=== PATIENT | female | born 1950 | race Caucasian/White ===

== ENCOUNTER 2016-08-03 12:50 | Outpatient (CLI) | payer BC, OTHER ==
[2016-08-03 13:25] LABS: Hemoglobin 12.7 g/dL (12.0-16.0)
[2016-08-03 13:41] LABS: Anion Gap 17 mmol/L (10-20); BUN (Urea Nitrogen) 26 mg/dL (9.8-20.1); Calc. Creatinine Clearance 0 mL/min (70-130); Calcium 10.1 mg/dL (7.8-10.44); Carbon Dioxide 25 mmol/L (23-31); Chloride 104 mmol/L (98-107); Estimated GFR-MDRD 49; Glucose 115 mg/dL (80-115); Sodium 142 mmol/L (136-145)
== END 2016-08-03 12:51 | disposition home or self-care (01) ==
LOC: MADLAB 12:50
PROVIDERS: ATTEND Internal Medicine Nephrology
DX: N18.3 Chronic kidney disease, stage 3 (moderate) (principal); D63.1 Anemia in chronic kidney disease
CPT/HCPCS: 36415; 80048; 85014; 85018

== ENCOUNTER 2016-11-07 08:10 | Outpatient (CLI) | payer BC, OTHER ==
[2016-11-07 09:04] LABS: Hemoglobin 12.6 g/dL (12.0-16.0); Mean Corpuscular HGB CONC 31.9 g/dL (32.0-36.0); Mean Corpuscular Hemoglobin 29.5 pg (27.0-31.0); Mean Corpuscular Volume 92.7 fl (81.0-99.0); Mean Platelet Volume 7.6 fL (7.4-10.4); Platelet Count 257 thou/uL (130-400); RBC Distribution Width 13.5 % (11.5-14.5); Red Blood Cell (RBC) Count 4.29 mill/uL (4.20-5.40); White Blood Cell (WBC) Count 10.2 thou/uL (4.8-10.8)
[2016-11-07 09:15] LABS: ALT (SGPT) 16 U/L (8-55); AST (SGOT) 16 U/L (5-34); Albumin 3.7 g/dL (3.4-4.8); Alkaline Phosphatase 104 U/L (40-150); BUN (Urea Nitrogen) 23 mg/dL (9.8-20.1); Bilirubin, Direct 0.2 mg/dL (0.1-0.3); Bilirubin, Total 0.4 mg/dL (0.2-1.2); Calc. Creatinine Clearance 0 mL/min (70-130); Estimated GFR-MDRD 45; Protein, Total 7.5 g/dL (5.8-8.1)
[2016-11-09 07:32] LABS: Antinuclear AB Negative (Negative)
== END 2016-11-07 08:11 | disposition home or self-care (01) ==
LOC: MADLAB 08:10
PROVIDERS: ATTEND Physician Assistant Medical
DX: L40.0 Psoriasis vulgaris (principal)
CPT/HCPCS: 36415; 80076; 82565; 84520; 85027; 86038

== ENCOUNTER 2017-01-18 07:10 | Outpatient (CLI) | payer BC, OTHER ==
--- NOTE | 2017-01-18 09:06 | ULT ---
BILATERAL RENAL ULTRASOUND: Date: 01/18/17 HISTORY: Chronic renal disease. History of a cyst involving the left kidney. COMPARISON: 09/29/14 study. FINDINGS: Real-time imaging of the right and left kidneys performed. The right kidney measures 10.5 cm and the left kidney measures 9.8 cm in size. I do not visualize any cyst, mass, or obstruction. I cannot ap preciate the lower pole left renal cyst that was seen on the prior exam. There is cortical thinning of both kidneys. The bladder region appears unremarkable. IMPRESSION: Unremarkable renal ultrasound. The cyst seen involving the lower pole of the left kidney on the prev ious study is not visualized on the current exam. POS: [facility]
== END 2017-01-18 07:11 | disposition home or self-care (01) ==
LOC: MADULT 07:10
PROVIDERS: ATTEND Internal Medicine Nephrology
DX: N18.3 Chronic kidney disease, stage 3 (moderate) (principal); N28.1 Cyst of kidney, acquired
CPT/HCPCS: 76770

== ENCOUNTER 2017-03-12 14:05 | Outpatient (CLI) | payer BC, OTHER ==
[2017-03-12 16:40] LABS: Bilirubin Small (Negative); Blood, Urine Large (Negative); Clarity Cloudy (Clear); Glucose, Urine (Dipstick) 100 mg/dL (Negative); Leukocyte Small (Negative); Nitrite Negative (Negative); Protein, Urine (Dipstick) > or equal to 300 mg/dL (Neg-Trace); RBC/HPF 21-50 HPF (0-3); Specific Gravity, Urine 1.027 (1.002-1.036)
[2017-03-12 16:41] LABS: Bacteria/HPF 4+ HPF (None Seen)
== END 2017-03-12 14:06 | disposition home or self-care (01) ==
LOC: MADLABBHPM 14:05
PROVIDERS: ATTEND Family Medicine
DX: R30.0 Dysuria (principal)
CPT/HCPCS: 36415; 81001; 87077; 87086; 87186

== ENCOUNTER 2017-05-22 08:48 | Outpatient (CLI) | payer BC, OTHER ==
[2017-05-22 09:19] LABS: Mean Corpuscular HGB CONC 32.2 g/dL (32.0-36.0); Mean Corpuscular Hemoglobin 30.2 pg (27.0-31.0); Mean Corpuscular Volume 93.9 fl (81.0-99.0); Mean Platelet Volume 7.4 fL (7.4-10.4); Platelet Count 303 thou/uL (130-400); RBC Distribution Width 13.5 % (11.5-14.5); White Blood Cell (WBC) Count 11.7 thou/uL (4.8-10.8)
[2017-05-22 11:31] LABS: ALT (SGPT) 20 U/L (8-55); AST (SGOT) 19 U/L (5-34); Albumin 3.8 g/dL (3.4-4.8); Alkaline Phosphatase 116 U/L (40-150); BUN (Urea Nitrogen) 25 mg/dL (9.8-20.1); Bilirubin, Direct 0.2 mg/dL (0.1-0.3); Bilirubin, Total 0.5 mg/dL (0.2-1.2); Calc. Creatinine Clearance 0 mL/min (70-130); Estimated GFR-MDRD 45; Protein, Total 8.2 g/dL (6.0-8.3)
[2017-05-24 08:16] LABS: Antinuclear AB Negative (Negative)
== END 2017-05-22 08:49 | disposition home or self-care (01) ==
LOC: MADLABBHPM 08:48
PROVIDERS: ATTEND Physician Assistant Medical
DX: L40.0 Psoriasis vulgaris (principal)
CPT/HCPCS: 36415; 80076; 82565; 84520; 85027; 86038

== ENCOUNTER 2017-08-03 13:34 | Outpatient (CLI) | payer BC, OTHER ==
[2017-08-03 14:40] LABS: Bacteria/HPF Rare-Few HPF (None Seen)
[2017-08-03 22:59] LABS: Creatinine, Urine 78.52 mg/dL (47-110); Microalbumin Urine 6.7 mg/dL (0.5-50.0); Microalbumin/Creat Ratio 85.3 mg/g (Less than 30)
== END 2017-08-03 13:35 | disposition home or self-care (01) ==
LOC: MADLABBHPM 13:34 → MADLAB 13:35
PROVIDERS: ATTEND Family Medicine
DX: E11.9 Type 2 diabetes mellitus without complications (principal); N32.81 Overactive bladder
CPT/HCPCS: 36415; 81015; 82043; 87086

== ENCOUNTER 2017-09-03 10:32 | Outpatient (CLI) | payer OTHER | END 2017-09-03 10:33 | disposition home or self-care (01) | LOC: MADLABBHPM 10:32 | PROVIDERS: ATTEND Family Medicine | DX: R30.0 Dysuria (principal) | CPT/HCPCS: 36415; 87077; 87086; 87186 ==

== ENCOUNTER 2017-11-09 08:42 | Outpatient (CLI) | payer OTHER ==
[2017-11-09 09:22] LABS: Hemoglobin 11.4 g/dL (12.0-16.0); Mean Corpuscular HGB CONC 31.3 g/dL (32.0-36.0); Mean Corpuscular Hemoglobin 28.4 pg (27.0-31.0); Mean Corpuscular Volume 90.5 fl (81.0-99.0); Mean Platelet Volume 6.7 fL (7.4-10.4); Platelet Count 233 thou/uL (130-400); RBC Distribution Width 12.9 % (11.5-14.5); Red Blood Cell (RBC) Count 4.03 mill/uL (4.20-5.40); White Blood Cell (WBC) Count 8.9 thou/uL (4.8-10.8)
[2017-11-09 09:36] LABS: ALT (SGPT) 16 U/L (8-55); AST (SGOT) 14 U/L (5-34); Albumin 3.5 g/dL (3.4-4.8); Alkaline Phosphatase 106 U/L (40-150); BUN (Urea Nitrogen) 36 mg/dL (9.8-20.1); Bilirubin, Direct 0.2 mg/dL (0.1-0.3); Bilirubin, Total 0.4 mg/dL (0.2-1.2); Calc. Creatinine Clearance 0 mL/min (70-130); Estimated GFR-MDRD 42; Protein, Total 7.3 g/dL (6.0-8.3)
== END 2017-11-09 08:43 | disposition home or self-care (01) ==
LOC: MADLAB 08:42
PROVIDERS: ATTEND Physician Assistant Medical
DX: L40.0 Psoriasis vulgaris (principal)
CPT/HCPCS: 36415; 80076; 82565; 84520; 85027; 86038; 86225

== ENCOUNTER 2018-03-15 11:15 | Emergency (ER) | payer BC ==
[~2018-03-15 11:15] MED LIST: Sodium Chloride 0.9% 500 ML BAG ONE
--- NOTE | 2018-03-15 11:47 | RAD ---
PORTABLE AP CHEST X-RAY: 03/15/2018 HISTORY: Dizziness. COMPARISON: 10/03/2005 FINDINGS: The cardiac silhouette is magnified by projection but is at the upper limits of normal in size to bor derline enlarged. The pulmonary vasculature is within normal limits. The lungs are clear. There dobbs s been no interval change from the prior exam. There is suggestion of a calcified left hilar lymph n ode. IMPRESSION: 1. No acute cardiopulmonary process. 2. Upper limits of normal to borderline cardiomegaly. POS: [facility]
[2018-03-15 11:53] LABS: ALT (SGPT) 15 U/L (8-55); AST (SGOT) 17 U/L (5-34); Albumin 3.5 g/dL (3.4-4.8); Alkaline Phosphatase 86 U/L (40-150); Anion Gap 17 mmol/L (10-20); BUN (Urea Nitrogen) 63 mg/dL (9.8-20.1); Bilirubin, Total 0.5 mg/dL (0.2-1.2); CK (CPK) 49 U/L (29-168); Calc. Creatinine Clearance 0 mL/min (70-130); Calcium 8.9 mg/dL (7.8-10.44); Carbon Dioxide 17 mmol/L (23-31); Chloride 107 mmol/L (98-107); Estimated GFR-MDRD 17; Globulin 3.3 g/dL (2.4-3.5); Glucose 119 mg/dL (80-115); Potassium 5.2 mmol/L (3.5-5.1); Protein, Total 6.8 g/dL (6.0-8.3); Sodium 136 mmol/L (136-145)
[2018-03-15 11:54] LABS: Band 6 % (5-11); MDiff Complete? YES; Manual Diff?? YES; Mean Corpuscular HGB CONC 32.5 g/dL (32.0-36.0); Mean Corpuscular Volume 95.4 fL (78.0-98.0); Neutrophil 66 % (42-75); Platelet Count 261 thou/uL (130-400); RBC Distribution Width 14.1 % (11.5-14.5); Red Blood Cell (RBC) Count 3.21 mill/uL (4.20-5.40); White Blood Cell (WBC) Count 12.4 thou/uL (4.8-10.8)
[2018-03-15 11:55] LABS: Anisocytosis SLIGHT = 6-15 cells (100X) (0-5/hpf); CKMB 1.1 ng/mL (0-6.6); Lymphocytes 25 % (21-51); Monocytes 3 % (0-10); PLT Morphology Comment Appears Adequate; Troponin I 0.034 ng/mL (< 0.028)
[2018-03-15] MEDS ORDERED: Aspirin 325 MG TAB ONE (12:32)
[2018-03-15 12:35] LABS: Blood, Urine Moderate (Negative); Clarity Cloudy (Clear); Glucose, Urine (Dipstick) 100 mg/dL (Negative); Specific Gravity, Urine 1.015 (1.005-1.030)
[2018-03-15 12:36] LABS: Bilirubin Unable to Interpret (Negative); Leukocyte Unable to Interpret (Negative); Nitrite Unable to Interpret (Negative); Protein, Urine (Dipstick) Unable to Interpret mg/dL (Neg-Trace); Urobilinogen UNABLE TO INTERPRET mg/dL (0.2-1.0)
[2018-03-15 12:39] LABS: Bacteria/HPF 1+ HPF (None Seen); Squamous Epithelial 0-3 HPF (0-3)
== END 2018-03-15 13:05 | disposition short-term general hospital (02) ==
LOC: MADERS 11:15
DX: I95.9 Hypotension, unspecified (principal); N17.9 Acute kidney failure, unspecified; R79.89 Other specified abnormal findings of blood chemistry; E87.5 Hyperkalemia; E11.9 Type 2 diabetes mellitus without complications; I25.10 Atherosclerotic heart disease of native coronary artery without angina pectoris; I10 Essential (primary) hypertension; Z79.84 Long term (current) use of oral hypoglycemic drugs; Z79.891 Long term (current) use of opiate analgesic; Z79.899 Other long term (current) drug therapy
CPT/HCPCS: 36416; 71045; 80053; 81003; 81015; 82553; 84484; 85025; 87077; 87086; 87186; 93005; 96360; J7050

== ENCOUNTER 2018-04-10 08:48 | Outpatient (CLI) | payer BC, MEDICARE, OTHER ==
--- NOTE | 2018-04-10 10:46 | CT ---
CT OF ABDOMEN AND PELVIS PERFORMED WITHOUT CONTRAST ENHANCEMENT: HISTORY: Recurrent UTIs for several months. Sharp pains in bladder region x 2 weeks. FINDINGS: The lung bases are clear. The liver, spleen, and pancreas regions are unremarkable. There are large gallstones noted. Right and left adrenal glands are normal in size and appearance. Right and left kidneys are normal i n size and not obstructed. No renal calculi are seen. There is an exophytic density arising from th e lower pole of the left kidney. CT Hounsfield unit numbers of 31 are not definitively a cyst. It m easures in the 10-11 mm range. In reviewing a previous ultrasound study of 01/18/2017, this area was not seen on that examination but was reported on a 09/29/2014 examination and on that examination ther e was a much larger cyst measuring 2.5 x 2.7 cm. It may be that this is the residual of that collaps ed cyst. There is some fat stranding associated with the left renal pelvis. There is no ureteral di latation or evidence of a ureteral calculus. There is no significant periaortic or mesenteric adenop athy. Some minimal colonic diverticulosis noted. These changes are more pronounced in the sigmoid c olon. CT OF PELVIS PERFORMED WITHOUT CONTRAST ENHANCEMENT: Fat-containing paraumbilical hernia is seen. No adenopathy or mass. The appendix appears unremarkab le. IMPRESSION: 1. Gallstones. 2. An approximately 11 mm exophytic hyperdense lesion involving the lower pole of the left kidney. This does not have CT numbers that would correspond to a cyst. However, in reviewing the 2014 CT exa mination, there was a 2.7 cm cyst in this location. It is possible that what is seen now is the resi dual of the involution of this cyst. 3. There are no signs of renal calculi or obstruction. There is some mild fat stranding associated with the left renal pelvis. This could be related to previous infections. 4. Colonic diverticulosis. POS: C
== END 2018-04-10 08:49 | disposition home or self-care (01) ==
LOC: MADCT 08:48
PROVIDERS: ATTEND Urology
DX: N39.0 Urinary tract infection, site not specified (principal); K80.20 Calculus of gallbladder without cholecystitis without obstruction; N28.9 Disorder of kidney and ureter, unspecified; K57.30 Diverticulosis of large intestine without perforation or abscess without bleeding
CPT/HCPCS: 74176

== ENCOUNTER 2018-05-07 07:40 | Outpatient (CLI) | payer BC ==
[2018-05-07 08:26] LABS: Mean Corpuscular Hemoglobin 29.9 pg (27.0-31.0); Mean Corpuscular Volume 96.5 fL (78.0-98.0); Mean Platelet Volume 7.5 fL (7.4-10.4); Platelet Count 272 thou/uL (130-400); RBC Distribution Width 13.2 % (11.5-14.5); Red Blood Cell (RBC) Count 3.69 mill/uL (4.20-5.40); White Blood Cell (WBC) Count 8.6 thou/uL (4.8-10.8)
[2018-05-07 08:44] LABS: ALT (SGPT) 17 U/L (8-55); AST (SGOT) 19 U/L (5-34); Albumin 3.7 g/dL (3.4-4.8); Alkaline Phosphatase 122 U/L (40-150); BUN (Urea Nitrogen) 34 mg/dL (9.8-20.1); Bilirubin, Direct 0.2 mg/dL (0.1-0.3); Bilirubin, Total 0.4 mg/dL (0.2-1.2); Calc. Creatinine Clearance 0 mL/min (70-130); Estimated GFR-MDRD 40; Protein, Total 7.5 g/dL (6.0-8.3)
[2018-05-08 13:56] LABS: ANA Symphony (Qualitative) Negative (Negative); dsDNA IgG Antibody 0.6 IU/mL (<10 Negative)
== END 2018-05-07 07:41 | disposition home or self-care (01) ==
LOC: MADLAB 07:40
PROVIDERS: ATTEND Physician Assistant Medical
DX: L40.0 Psoriasis vulgaris (principal)
CPT/HCPCS: 36415; 80076; 82565; 84520; 85027; 86038; 86225

== ENCOUNTER 2018-11-01 10:09 | Outpatient (CLI) | payer MEDICARE, OTHER ==
[2018-11-01 13:24] LABS: #Basophils 0.1 thou/uL (0.0-0.2); #Eosinphils 0.2 thou/uL (0.0-0.7); #Lymphocytes 2.6 thou/uL (1.20-3.40); #Monocytes 0.5 thou/uL (0.11-0.59); #Neutrophils 4.2 thou/uL (1.40-6.50); %Eosinophils 2.7 % (0.0-10.0); %Lymphocytes 34.2 % (21.0-51.0); %Monocytes 6.8 % (0.0-10.0); %Neutrophils 55.3 % (42.0-75.0); Hemoglobin 9.9 g/dL (12.0-16.0); Mean Corpuscular HGB CONC 30.8 g/dL (32.0-36.0); Mean Corpuscular Hemoglobin 28.7 pg (27.0-31.0); Mean Corpuscular Volume 93.2 fL (78.0-98.0); Mean Platelet Volume 6.7 fL (7.4-10.4); Platelet Count 249 thou/uL (130-400); RBC Distribution Width 14.6 % (11.5-14.5); Red Blood Cell (RBC) Count 3.47 mill/uL (4.20-5.40); White Blood Cell (WBC) Count 7.6 thou/uL (4.8-10.8)
[2018-11-01 13:32] LABS: ALT (SGPT) 7 U/L (8-55); AST (SGOT) 14 U/L (5-34); Albumin 3.6 g/dL (3.4-4.8); Alkaline Phosphatase 123 U/L (40-150); BUN (Urea Nitrogen) 27 mg/dL (9.8-20.1); Bilirubin, Direct 0.2 mg/dL (0.1-0.3); Bilirubin, Total 0.4 mg/dL (0.2-1.2); Calc. Creatinine Clearance 0 mL/min (70-130); Estimated GFR-MDRD 37; Protein, Total 7.2 g/dL (6.0-8.3)
[2018-11-06 15:39] LABS: ANA Symphony (Qualitative) Negative (Negative); ANA Symphony (Quantitative) 0.1 Ratio (< 0.7 Negative); dsDNA IgG Antibody 1.8 IU/mL (<10 Negative)
== END 2018-11-01 10:10 | disposition home or self-care (01) ==
LOC: MADLAB 10:09
PROVIDERS: ATTEND Physician Assistant Medical
DX: L40.0 Psoriasis vulgaris (principal)
CPT/HCPCS: 36415; 80076; 82565; 84520; 85025; 86038; 86225

== ENCOUNTER 2019-02-25 03:37 | Emergency (ER) | payer MEDICARE, OTHER ==
[2019-02-25 04:50] LABS: Hemoglobin 9.3 g/dL (12.0-16.0); Mean Corpuscular HGB CONC 31.6 g/dL (32.0-36.0); Mean Corpuscular Hemoglobin 28.8 pg (27.0-31.0); Mean Corpuscular Volume 91.1 fL (78.0-98.0); Mean Platelet Volume 5.9 fL (7.4-10.4); Platelet Count 211 thou/uL (130-400); RBC Distribution Width 13.2 % (11.5-14.5); Red Blood Cell (RBC) Count 3.21 mill/uL (4.20-5.40); White Blood Cell (WBC) Count 16.2 thou/uL (4.8-10.8)
[2019-02-25 05:07] LABS: Anisocytosis SLIGHT = 6-15 cells (100X) (0-5/hpf); Band 8 % (5-11); Lymphocytes 9 % (21-51); MDiff Complete? YES; Monocytes 6 % (0-10); Neutrophil 77 % (42-75); Platelet Morphology Comment Appears Adequate
[2019-02-25 05:08] LABS: ALT (SGPT) 17 U/L (8-55); AST (SGOT) 44 U/L (5-34); Albumin 3.2 g/dL (3.4-4.8); Alkaline Phosphatase 119 U/L (40-150); Anion Gap 18 mmol/L (10-20); BUN (Urea Nitrogen) 39 mg/dL (9.8-20.1); Bilirubin, Total 0.4 mg/dL (0.2-1.2); CK (CPK) 1838 U/L (29-168); Calc. Creatinine Clearance 0 mL/min (70-130); Calcium 8.6 mg/dL (7.8-10.44); Carbon Dioxide 22 mmol/L (23-31); Chloride 100 mmol/L (98-107); Estimated GFR-MDRD 20; Globulin 3.9 g/dL (2.4-3.5); Glucose 225 mg/dL (80-115); Potassium 3.7 mmol/L (3.5-5.1); Protein, Total 7.1 g/dL (6.0-8.3); Sodium 136 mmol/L (136-145)
[2019-02-25 05:10] LABS: Bilirubin Negative (Negative); Blood, Urine Large (Negative); Clarity Cloudy (Clear); Glucose, Urine (Dipstick) Negative (Negative); Leukocyte Moderate (Negative); Nitrite Negative (Negative); Protein, Urine (Dipstick) > or equal to 300 mg/dL (Neg-Trace); Urobilinogen 0.2 mg/dL (Less than 2)
[2019-02-25 05:11] LABS: WBC/HPF Greater Than 50 HPF (0-3)
[2019-02-25 05:12] LABS: Bacteria/HPF 1+ HPF (None Seen); Squamous Epithelial 0-3 HPF (0-3)
[2019-02-25] MEDS ORDERED: Fentanyl 100 MCG/2 ML VIAL ONE (05:25)
[2019-02-25] MEDS ORDERED: Sodium Chloride 0.9% 1,000 ML ONE (05:25)
[2019-02-25 05:34] LABS: CKMB 17.7 ng/mL (0-6.6)
--- NOTE | 2019-02-25 08:36 | RAD ---
LEFT FEMUR ONE VIEW: HISTORY: Fall. Pain. FINDINGS: Displaced intertrochanteric fracture. The distal aspect of the femur is not included on this exam. IMPRESSION: Limited evaluation, as only one view has been provided. There is a displaced intertrochanteric fract ure. POS: OFF
--- NOTE | 2019-02-25 08:38 | RAD ---
LEFT HIP ONE VIEW: HISTORY: Fall. Pain. FINDINGS: A single view of the left hip demonstrates a displaced intertrochanteric fracture. IMPRESSION: Displaced intertrochanteric fracture. POS: OFF
--- NOTE | 2019-02-25 08:48 | RAD ---
CHEST ONE VIEW: HISTORY: Pain. Left hip fracture. COMPARISON: 03/15/2018 FINDINGS: Enlarged cardiac silhouette. Lungs and pleural spaces are clear. No pneumothorax on the supine proj ection. No osseous abnormalities. IMPRESSION: No acute cardiopulmonary process. POS: OFF
== END 2019-02-25 05:45 | disposition short-term general hospital (02) ==
LOC: MADERS 03:37
DX: S72.142A Displaced intertrochanteric fracture of left femur, initial encounter for closed fracture (principal); S72.112A Displaced fracture of greater trochanter of left femur, initial encounter for closed fracture; T79.6XXA Traumatic ischemia of muscle, initial encounter; N28.9 Disorder of kidney and ureter, unspecified; I25.10 Atherosclerotic heart disease of native coronary artery without angina pectoris; I10 Essential (primary) hypertension; Z79.899 Other long term (current) drug therapy; Z79.82 Long term (current) use of aspirin; W19.XXXA Unspecified fall, initial encounter
CPT/HCPCS: 51702; 71045; 80053; 81003; 81015; 82550; 82553; 84484; 85025; 93005; 94760; 96374; J3010; J7050

== ENCOUNTER 2019-03-02 20:30 | Inpatient (IN) | payer MEDICARE, OTHER ==
[2019-03-02] MEDS ORDERED: Senokot S 8.6-50 MG TAB PO PRN (23:47)
[2019-03-03] MEDS ORDERED: hydrALAZINE 10 MG TAB PO PRN (00:06)
[2019-03-03] MEDS ORDERED: Ondansetron ODT 4 MG TAB PO PRN (00:07)
[2019-03-03] MEDS ORDERED: Carvedilol 12.5 MG TAB PO SCH (00:15)
[2019-03-03] MEDS ORDERED: Dextrose 50% Abboject 50 ML SYRINGE SLOW IVP PRN (07:05)
[2019-03-03] MEDS ORDERED: HumaLOG 300 UNITS/3 ML VIAL SC PRN (07:05)
[2019-03-03] MEDS ORDERED: Dextrose 5% in Water 1,000 ML IV PRN (07:05)
[2019-03-03] MEDS: traMADol HCl 50 MG TAB PO PRN ×2 (07:28→18:00)
[2019-03-03] MEDS ORDERED: ACTOS PO SCH (09:00)
[2019-03-03] MEDS ORDERED: Phenazopyridine HCl 97.5 MG TABLET PO SCH (09:00)
[2019-03-03] MEDS: Ferrous Sulfate 325 MG TAB PO SCH ×2 (09:24→16:24)
[2019-03-03] MEDS: Gabapentin 100 MG CAP PO SCH ×3 (09:25→20:31)
[2019-03-03] MEDS: Oxybutynin ER 5 MG TAB PO SCH (09:25)
[2019-03-03] MEDS: Aspirin 81 mg Enteric Coated Tablet PO SCH ×2 (09:25→20:31)
[2019-03-03] MEDS: Multivitamin W/ Minerals 1 TAB PO SCH (09:25)
[2019-03-03] MEDS: Ascorbic Acid 500 mg Chewable Tablet PO SCH (09:25)
[2019-03-03] MEDS: Phenazopyridine HCl 97.5 MG TABLET PO PRN (09:25)
[2019-03-03] MEDS: Floranex Packet PO SCH (09:26)
[2019-03-03] MEDS: Nitrofurantoin Monohyd/M-Cryst 100 MG CAP PO SCH ×2 (09:26→20:31)
[2019-03-03] MEDS: Polyethylene Glycol 3350 17 GM Packet PO SCH (09:26)
[2019-03-03] MEDS: Carvedilol 12.5 MG TAB PO SCH ×2 (09:26→20:32)
[2019-03-03] MEDS: CRANBERRY 900 MG PO SCH (09:27)
--- NOTE | 2019-03-03 14:55 | HP ---
PRIMARY CARE PHYSICIAN: Dr. Alonzo. REASON FOR ADMISSION: Skilled rehab in [facility]. HISTORY OF THE PRESENT ILLNESS AND HOSPITAL COURSE: Ms. Parada is a very pleasant 68-year-old female with history of recent fall from home on 2018. The patient reports that she fell when she was trying to get up and out of the recliner and go to bed. The patient reports that she laid on the floor most of the night when her son found her at around 3 a.m. That was the time that the patient was sent only sent to the hospital. The patient reports significant history of recurrent UTI. She reports recent urinary symptoms of UTI, but did not go to her PCP at this time. She reports that she normally easily gets dehydrated when she gets urinary tract infection and correlates this with her recent fall. She denied any loss of consciousness, nor chest pain or shortness of breath during this incident. The patient was found to have a left intertrochanteric hip fracture that was sustained from the fall. She was then admitted to [facility] and was treated appropriately. She received hydration and placed on antibiotics for UTI. She underwent TFNA of the left femur by Dr. Gutierres on 02/26/2019. The patient had an unremarkable postoperative course. She was placed on aspirin 81 mg p.o. b.i.d. for DVT prophylaxis. Her urine culture came back with positive for presence of E coli, sensitive to nitrofurantoin. The patient was started on Macrobid prior to discharge. On 03/02/2019, the patient was deemed clinically stable to proceed with rehab at [facility], thus transferred. The patient had an unremarkable overnight stay since admission to [facility]. She reports today that she still could hardly get up and stand up. She is partially weightbearing on the left as per Orthopedic's recommendation. The patient is requesting to have a PureWick placed due to urinary frequency. She is also requesting for SCD in addition to her aspirin for DVT prophylaxis as she reports that she has been receiving this in the hospital prior to transfer. Overall, pain is adequately controlled with Tylenol and tramadol combination. No other issues reported at this time. PAST MEDICAL HISTORY: Hypertension, diabetes type 2, gallstones, frequent UTI, coronary artery disease, arthritis, psoriasis, overactive bladder, hyperlipidemia, and obesity. PAST SURGICAL HISTORY: Cardiac stents placed in 2006, hysterectomy, and hernia repair. SOCIAL HISTORY: Lives at home with her son. She is retired. She denies smoking history. Denies alcohol or illicit drug use. MEDICATIONS: 1. Aspirin 81 mg p.o. b.i.d. 2. Carvedilol 12.5 mg b.i.d. 3. Crestor 20 mg at bedtime. 4. Pioglitazone 15 mg p.o. daily. 5. Amitriptyline 50 mg at bedtime. 6. Oxybutynin 10 mg p.o. daily. 7. Azo p.r.n. 8. Estradiol vaginal cream Sunday, Sunday, and Sunday. 9. Vitamin C 500 mg p.o. daily. 10. Multivitamins 1 tablet p.o. daily. 11. Acetaminophen 1000 mg p.o. q.6 hours p.r.n. 12. Acidophilus 1 g p.o. daily. 13. Vitamin D 1000 units p.o. daily. 14. Ferrous sulfate 325 mg p.o. b.i.d. 15. Gabapentin 100 mg p.o. t.i.d. 16. Lisinopril 20 mg p.o. daily. 17. Hydrochlorothiazide 12.5 mg p.o. daily. 18. Nitrofurantoin 100 mg p.o. b.i.d. 19. Polyethylene glycol 17 g p.o. daily. 20. Rosuvastatin 20 mg p.o. at bedtime. 21. Senokot-S 2 tablets p.o. b.i.d. p.r.n. 22. Tramadol 50 mg p.o. q.6 hours p.r.n. ALLERGIES: NO KNOWN ALLERGIES. REVIEW OF SYSTEMS: GENERAL: Denies fever or chills. Reports general weakness and fatigue. HEENT: No acute visual changes or hearing changes or cold symptoms. RESPIRATORY: No shortness of breath, pain with breathing, sputum production, or chronic cough. CARDIO: Denies chest pain, dyspnea on exertion, orthopnea, palpitations, paroxysmal nocturnal dyspnea. GI: No nausea, vomiting, abdominal pain, or diarrhea. Reports constipation. No rectal bleeding. GENITOURINARY: Reports recurrent history of UTI, urinary frequency and urgency. Denies gross hematuria, incontinence, or nocturia. MUSCULOSKELETAL: Reports joint pains, arthritis of the knees, intermittent joint swelling of the knees. NEUROLOGIC: Denies focal weakness, numbness, loss of consciousness, seizure, tics, or tremors. PSYCHIATRIC: Reports insomnia. Denies depressive symptoms, anxiety, or hallucinations. SKIN: Denies rashes, nonhealing ulcers, or pruritus. PHYSICAL EXAMINATION: VITAL SIGNS: Blood pressure 149/68, temperature 96.6, pulse 68, respiration 18 , O2 sats 95% on room air. Weight 253 pounds and 8 ounces and height 5 feet and 6 inches. GENERAL: The patient is awake, alert, oriented x3, comfortable on exam, built obese, not in distress. HEENT: Normocephalic, atraumatic. PERRL. Intact EOM. Anicteric sclerae. Oral mucosa is moist. NECK: Supple. Full range of motion. No LAD. No JVD. No bruit. CHEST: Normal excursion. Clear to auscultation bilaterally. CARDIAC: RRR. Normal S1 and S2. No murmurs. ABDOMEN: Obese and soft. Normoactive bowel sounds. Nondistended, nontender. No rebound. No guarding. Negative CVA tenderness bilaterally. EXTREMITIES: Positive anterior knee joint swelling. No significant erythema. Nontender to touch. Negative Homans. Pulses 2+ bilaterally. NEUROLOGIC: Nonfocal. DTRs 2+. Gait unsteady. SKIN: Postoperative sites on the left lateral thigh is covered with clean dressing. No surrounding erythema. No edema. LABORATORY DATA: Recent lab works: Fasting blood sugar on 03/03/2019, 114. On 02/28/2019, WBC 11.9, hemoglobin 8.8, hematocrit 26.9, platelets 271. On 02/26/2019, WBC 14, hemoglobin 9.7, hematocrit 29.4, and platelets 230. Chemistry on 03/01/2019, sodium 138, potassium 4.5, BUN 40, creatinine 1.24, estimated GFR 43, glucose 117, calcium 8.6, phosphorus 2.7, and magnesium 2.4. ASSESSMENT AND PLAN: 1. Physical deconditioning. 2. General weakness. 3. Status post left intertrochanteric hip fracture and repair on 02/26/[address] Gutierres. 4. Status post mechanical fall with delayed presentation, dehydration. 5. Urinary tract infection with history of recurrent urinary tract infection. 6. Acute on chronic kidney disease, stage 4. 7. Rhabdomyolysis secondary to fall, resolved. 8. Hypomagnesemia secondary to dehydration, resolved. 9. Unsteady gait. 10. Obesity. PLAN: 1. The patient is admitted to [facility] for skilled rehab. We will refer to PT/OT evaluation and treat. Orthopedic limitations:Partial weightbearing to the left lower extremity until further order. 2. Diet, diabetic heart healthy. 3. Activity to be determined by physical therapist. 4. Should continue all current medications as modified per list. 5. GI prophylaxis with PPI. DVT prophylaxis with aspirin 81 mg p.o. b.i.d. 6. We will order PureWick cath per request but limited to bedtime only. 7. Follow up with Dr. Gutierres as directed. 8. Further recommendations depending on the hospital course. 9. Estimated length of stay, 2 to 3 weeks. 10. Code status, reports FULL CODE. Job ID: [id number] MTDD
[2019-03-03] MEDS: Acetaminophen 500 MG TAB PO PRN (18:03)
[2019-03-03] MEDS: Amitriptyline HCl 25 MG TAB PO SCH (20:31)
[2019-03-03] MEDS: Rosuvastatin 10 MG TAB PO SCH (20:31)
[2019-03-04] MEDS: traMADol HCl 50 MG TAB PO PRN ×2 (07:36→15:08)
[2019-03-04] MEDS: Ferrous Sulfate 325 MG TAB PO SCH ×2 (07:36→16:58)
[2019-03-04] MEDS: Nitrofurantoin Monohyd/M-Cryst 100 MG CAP PO SCH ×2 (08:47→20:52)
[2019-03-04] MEDS: Floranex Packet PO SCH (08:47)
[2019-03-04] MEDS: Hydrochlorothiazide 25 MG TAB PO SCH (08:47)
[2019-03-04] MEDS: Pioglitazone HCl 15 MG TAB PO SCH (08:47)
[2019-03-04] MEDS: Lisinopril 20 MG TAB PO SCH (08:48)
[2019-03-04] MEDS: Aspirin 81 mg Enteric Coated Tablet PO SCH ×2 (08:48→20:52)
[2019-03-04] MEDS: Gabapentin 100 MG CAP PO SCH ×3 (08:49→20:52)
[2019-03-04] MEDS: Oxybutynin ER 5 MG TAB PO SCH (08:49)
[2019-03-04] MEDS: Ascorbic Acid 500 mg Chewable Tablet PO SCH (08:49)
[2019-03-04] MEDS: Carvedilol 12.5 MG TAB PO SCH ×2 (08:49→20:52)
[2019-03-04] MEDS: Multivitamin W/ Minerals 1 TAB PO SCH (08:49)
[2019-03-04] MEDS: Polyethylene Glycol 3350 17 GM Packet PO SCH (08:49)
[2019-03-04] MEDS: CRANBERRY 900 MG PO SCH (08:51)
[2019-03-04] MEDS: Amitriptyline HCl 25 MG TAB PO SCH (20:51)
[2019-03-04] MEDS: Rosuvastatin 10 MG TAB PO SCH (20:51)
[2019-03-05] MEDS: Polyethylene Glycol 3350 17 GM Packet PO SCH (08:36)
[2019-03-05] MEDS: Aspirin 81 mg Enteric Coated Tablet PO SCH ×2 (08:37→20:48)
[2019-03-05] MEDS: Ascorbic Acid 500 mg Chewable Tablet PO SCH (08:37)
[2019-03-05] MEDS: Lisinopril 20 MG TAB PO SCH (08:37)
[2019-03-05] MEDS: Ferrous Sulfate 325 MG TAB PO SCH ×2 (08:37→16:57)
[2019-03-05] MEDS: Multivitamin W/ Minerals 1 TAB PO SCH (08:38)
[2019-03-05] MEDS: Gabapentin 100 MG CAP PO SCH ×3 (08:39→20:48)
[2019-03-05] MEDS: Carvedilol 12.5 MG TAB PO SCH ×2 (08:39→20:48)
[2019-03-05] MEDS: Hydrochlorothiazide 25 MG TAB PO SCH (08:39)
[2019-03-05] MEDS: Floranex Packet PO SCH (08:40)
[2019-03-05] MEDS: Pioglitazone HCl 15 MG TAB PO SCH (08:41)
[2019-03-05] MEDS: traMADol HCl 50 MG TAB PO PRN (08:51)
[2019-03-05] MEDS: Oxybutynin ER 5 MG TAB PO SCH (08:51)
[2019-03-05] MEDS: CRANBERRY 900 MG PO SCH (08:51)
[2019-03-05] MEDS: Acetaminophen 500 MG TAB PO PRN (08:54)
[2019-03-05] MEDS: Amitriptyline HCl 25 MG TAB PO SCH (20:48)
[2019-03-05] MEDS: Rosuvastatin 10 MG TAB PO SCH (20:48)
[2019-03-06] MEDS: Phenazopyridine HCl 97.5 MG TABLET PO PRN (05:24)
[2019-03-06] MEDS: Oxybutynin ER 5 MG TAB PO SCH (08:16)
[2019-03-06] MEDS: Floranex Packet PO SCH (08:16)
[2019-03-06] MEDS: Multivitamin W/ Minerals 1 TAB PO SCH (08:17)
[2019-03-06] MEDS: Pioglitazone HCl 15 MG TAB PO SCH (08:17)
[2019-03-06] MEDS: traMADol HCl 50 MG TAB PO PRN ×2 (08:17→20:58)
[2019-03-06] MEDS: Hydrochlorothiazide 25 MG TAB PO SCH (08:17)
[2019-03-06] MEDS: Gabapentin 100 MG CAP PO SCH ×3 (08:18→20:36)
[2019-03-06] MEDS: Aspirin 81 mg Enteric Coated Tablet PO SCH ×2 (08:18→20:36)
[2019-03-06] MEDS: Lisinopril 20 MG TAB PO SCH (08:18)
[2019-03-06] MEDS: Ascorbic Acid 500 mg Chewable Tablet PO SCH (08:18)
[2019-03-06] MEDS: Carvedilol 12.5 MG TAB PO SCH ×2 (08:18→20:37)
[2019-03-06] MEDS: Acetaminophen 500 MG TAB PO PRN (08:18)
[2019-03-06] MEDS: Ferrous Sulfate 325 MG TAB PO SCH ×2 (08:18→17:02)
[2019-03-06] MEDS: CRANBERRY 900 MG PO SCH (08:19)
[2019-03-06] MEDS: Polyethylene Glycol 3350 17 GM Packet PO SCH (08:20)
[2019-03-06] MEDS: Nitrofurantoin Monohyd/M-Cryst 100 MG CAP PO SCH ×2 (11:44→20:36)
[2019-03-06] MEDS: Amitriptyline HCl 25 MG TAB PO SCH (20:36)
[2019-03-06] MEDS: Rosuvastatin 10 MG TAB PO SCH (20:37)
[2019-03-07] MEDS: CRANBERRY 900 MG PO SCH (07:57)
[2019-03-07] MEDS: Floranex Packet PO SCH (07:59)
[2019-03-07] MEDS: Polyethylene Glycol 3350 17 GM Packet PO SCH (07:59)
[2019-03-07] MEDS: Pioglitazone HCl 15 MG TAB PO SCH (07:59)
[2019-03-07] MEDS: Lisinopril 20 MG TAB PO SCH (08:00)
[2019-03-07] MEDS: Nitrofurantoin Monohyd/M-Cryst 100 MG CAP PO SCH ×2 (08:00→21:17)
[2019-03-07] MEDS: Aspirin 81 mg Enteric Coated Tablet PO SCH ×2 (08:01→21:17)
[2019-03-07] MEDS: Ascorbic Acid 500 mg Chewable Tablet PO SCH (08:01)
[2019-03-07] MEDS: Multivitamin W/ Minerals 1 TAB PO SCH (08:01)
[2019-03-07] MEDS: Gabapentin 100 MG CAP PO SCH ×3 (08:02→21:16)
[2019-03-07] MEDS: Carvedilol 12.5 MG TAB PO SCH ×2 (08:02→21:16)
[2019-03-07] MEDS: Ferrous Sulfate 325 MG TAB PO SCH ×2 (08:02→16:37)
[2019-03-07] MEDS: traMADol HCl 50 MG TAB PO PRN (08:02)
[2019-03-07] MEDS: Oxybutynin ER 5 MG TAB PO SCH (08:03)
[2019-03-07] MEDS: Hydrochlorothiazide 25 MG TAB PO SCH (08:04)
[2019-03-07] MEDS: [UNRECOGNIZED DRUG - OTHER] SC SCH (11:01)
[2019-03-07] MEDS: Amitriptyline HCl 25 MG TAB PO SCH (21:16)
[2019-03-07] MEDS: Rosuvastatin 10 MG TAB PO SCH (21:21)
[2019-03-08] MEDS: Acetaminophen 500 MG TAB PO PRN ×2 (04:24→20:46)
[2019-03-08] MEDS: Polyethylene Glycol 3350 17 GM Packet PO SCH (08:55)
[2019-03-08] MEDS: Ferrous Sulfate 325 MG TAB PO SCH ×2 (08:55→16:51)
[2019-03-08] MEDS: Floranex Packet PO SCH (08:55)
[2019-03-08] MEDS: Oxybutynin ER 5 MG TAB PO SCH (08:56)
[2019-03-08] MEDS: Hydrochlorothiazide 25 MG TAB PO SCH (08:56)
[2019-03-08] MEDS: Nitrofurantoin Monohyd/M-Cryst 100 MG CAP PO SCH ×2 (08:56→20:42)
[2019-03-08] MEDS: Multivitamin W/ Minerals 1 TAB PO SCH (08:56)
[2019-03-08] MEDS: Carvedilol 12.5 MG TAB PO SCH ×2 (08:56→20:43)
[2019-03-08] MEDS: Lisinopril 20 MG TAB PO SCH (08:56)
[2019-03-08] MEDS: Aspirin 81 mg Enteric Coated Tablet PO SCH ×2 (08:56→20:43)
[2019-03-08] MEDS: Gabapentin 100 MG CAP PO SCH ×3 (08:56→20:41)
[2019-03-08] MEDS: Ascorbic Acid 500 mg Chewable Tablet PO SCH (08:56)
[2019-03-08] MEDS: Pioglitazone HCl 15 MG TAB PO SCH (08:57)
[2019-03-08] MEDS: CRANBERRY 900 MG PO SCH (08:58)
[2019-03-08] MEDS: traMADol HCl 50 MG TAB PO PRN (16:55)
[2019-03-08] MEDS: Rosuvastatin 10 MG TAB PO SCH (20:41)
[2019-03-08] MEDS: Amitriptyline HCl 25 MG TAB PO SCH (20:42)
[2019-03-09] MEDS: traMADol HCl 50 MG TAB PO PRN ×2 (06:26→20:05)
[2019-03-09] MEDS: Ferrous Sulfate 325 MG TAB PO SCH ×2 (09:07→16:46)
[2019-03-09] MEDS: Floranex Packet PO SCH (09:08)
[2019-03-09] MEDS: Nitrofurantoin Monohyd/M-Cryst 100 MG CAP PO SCH ×2 (09:08→20:05)
[2019-03-09] MEDS: Polyethylene Glycol 3350 17 GM Packet PO SCH (09:08)
[2019-03-09] MEDS: Hydrochlorothiazide 25 MG TAB PO SCH (09:08)
[2019-03-09] MEDS: Gabapentin 100 MG CAP PO SCH ×3 (09:09→20:04)
[2019-03-09] MEDS: Ascorbic Acid 500 mg Chewable Tablet PO SCH (09:09)
[2019-03-09] MEDS: Lisinopril 20 MG TAB PO SCH (09:09)
[2019-03-09] MEDS: Oxybutynin ER 5 MG TAB PO SCH (09:10)
[2019-03-09] MEDS: Pioglitazone HCl 15 MG TAB PO SCH (09:10)
[2019-03-09] MEDS: CRANBERRY 900 MG PO SCH (09:10)
[2019-03-09] MEDS: Carvedilol 12.5 MG TAB PO SCH ×2 (09:10→20:07)
[2019-03-09] MEDS: Multivitamin W/ Minerals 1 TAB PO SCH (09:10)
[2019-03-09] MEDS: Aspirin 81 mg Enteric Coated Tablet PO SCH ×2 (09:11→20:07)
[2019-03-09] MEDS: Acetaminophen 500 MG TAB PO PRN (10:15)
[2019-03-09] MEDS: Rosuvastatin 10 MG TAB PO SCH (20:04)
[2019-03-09] MEDS: Amitriptyline HCl 25 MG TAB PO SCH (20:05)
[2019-03-10] MEDS: traMADol HCl 50 MG TAB PO PRN (02:46)
[2019-03-10] MEDS: Acetaminophen 500 MG TAB PO PRN ×2 (07:57→17:20)
[2019-03-10] MEDS: CRANBERRY 900 MG PO SCH (07:59)
[2019-03-10] MEDS: Carvedilol 12.5 MG TAB PO SCH ×2 (08:00→20:57)
[2019-03-10] MEDS: Lisinopril 20 MG TAB PO SCH (08:00)
[2019-03-10] MEDS: Floranex Packet PO SCH (08:00)
[2019-03-10] MEDS: Polyethylene Glycol 3350 17 GM Packet PO SCH (08:00)
[2019-03-10] MEDS: Ferrous Sulfate 325 MG TAB PO SCH ×2 (08:00→17:19)
[2019-03-10] MEDS: Nitrofurantoin Monohyd/M-Cryst 100 MG CAP PO SCH ×2 (08:00→20:57)
[2019-03-10] MEDS: Oxybutynin ER 5 MG TAB PO SCH (08:00)
[2019-03-10] MEDS: Hydrochlorothiazide 25 MG TAB PO SCH (08:01)
[2019-03-10] MEDS: Gabapentin 100 MG CAP PO SCH ×3 (08:01→20:57)
[2019-03-10] MEDS: Pioglitazone HCl 15 MG TAB PO SCH (08:01)
[2019-03-10] MEDS: Aspirin 81 mg Enteric Coated Tablet PO SCH ×2 (08:01→21:00)
[2019-03-10] MEDS: Multivitamin W/ Minerals 1 TAB PO SCH (08:01)
[2019-03-10] MEDS: Ascorbic Acid 500 mg Chewable Tablet PO SCH (08:01)
[2019-03-10 14:47] LABS: #Basophils 0.1 thou/uL (0.0-0.2); #Eosinphils 0.3 thou/uL (0.0-0.7); #Lymphocytes 2.1 thou/uL (1.20-3.40); #Monocytes 0.9 thou/uL (0.11-0.59); #Neutrophils 11.4 thou/uL (1.40-6.50); %Basophils 0.5 % (0.0-1.0); %Eosinophils 1.8 % (0.0-10.0); %Lymphocytes 14.2 % (21.0-51.0); %Neutrophils 77.6 % (42.0-75.0); Hemoglobin 8.5 g/dL (12.0-16.0); Mean Corpuscular Volume 93.9 fL (78.0-98.0); Mean Platelet Volume 5.7 fL (7.4-10.4); Platelet Count 311 thou/uL (130-400); RBC Distribution Width 15.1 % (11.5-14.5); Red Blood Cell (RBC) Count 2.84 mill/uL (4.20-5.40); White Blood Cell (WBC) Count 14.8 thou/uL (4.8-10.8)
[2019-03-10 14:53] LABS: ALT (SGPT) 16 U/L (8-55); AST (SGOT) 20 U/L (5-34); Albumin 3.3 g/dL (3.4-4.8); Alkaline Phosphatase 172 U/L (40-150); Anion Gap 15 mmol/L (10-20); BUN (Urea Nitrogen) 64 mg/dL (9.8-20.1); Bilirubin, Total 0.4 mg/dL (0.2-1.2); Calc. Creatinine Clearance 41 mL/min (70-130); Calcium 9.8 mg/dL (7.8-10.44); Carbon Dioxide 27 mmol/L (23-31); Chloride 102 mmol/L (98-107); Estimated GFR-MDRD 21; Globulin 3.8 g/dL (2.4-3.5); Glucose 157 mg/dL (80-115); Potassium 5.1 mmol/L (3.5-5.1); Protein, Total 7.1 g/dL (6.0-8.3); Sodium 139 mmol/L (136-145)
[2019-03-10] MEDS: [UNRECOGNIZED DRUG - OTHER] SC SCH (15:30)
[2019-03-10] MEDS: Rosuvastatin 10 MG TAB PO SCH (20:56)
[2019-03-10] MEDS: Amitriptyline HCl 25 MG TAB PO SCH (20:58)
[2019-03-10 21:57] LABS: Iron 49 ug/dL (50-170)
[2019-03-11] MEDS: Hydrochlorothiazide 25 MG TAB PO SCH (08:37)
[2019-03-11] MEDS: Floranex Packet PO SCH (08:37)
[2019-03-11] MEDS: Ferrous Sulfate 325 MG TAB PO SCH ×2 (08:38→17:08)
[2019-03-11] MEDS: Lisinopril 20 MG TAB PO SCH (08:39)
[2019-03-11] MEDS: Nitrofurantoin Monohyd/M-Cryst 100 MG CAP PO SCH (08:39)
[2019-03-11] MEDS: Oxybutynin ER 5 MG TAB PO SCH (08:39)
[2019-03-11] MEDS: Gabapentin 100 MG CAP PO SCH ×3 (08:39→20:03)
[2019-03-11] MEDS: Ascorbic Acid 500 mg Chewable Tablet PO SCH (08:39)
[2019-03-11] MEDS: Multivitamin W/ Minerals 1 TAB PO SCH (08:39)
[2019-03-11] MEDS: Aspirin 81 mg Enteric Coated Tablet PO SCH ×2 (08:39→20:02)
[2019-03-11] MEDS: Acetaminophen 500 MG TAB PO PRN ×2 (08:41→20:08)
[2019-03-11] MEDS: Pioglitazone HCl 15 MG TAB PO SCH (08:41)
[2019-03-11] MEDS: Carvedilol 12.5 MG TAB PO SCH ×2 (08:41→20:03)
[2019-03-11] MEDS: Polyethylene Glycol 3350 17 GM Packet PO SCH (08:42)
[2019-03-11] MEDS: traMADol HCl 50 MG TAB PO PRN ×2 (08:43→19:04)
[2019-03-11] MEDS: CRANBERRY 900 MG PO SCH (11:21)
[2019-03-11] MEDS: Sodium Chloride 0.9% 1,000 ML IV SCH (18:20)
[2019-03-11] MEDS: Amitriptyline HCl 25 MG TAB PO SCH (20:03)
[2019-03-12] MEDS: Sodium Chloride 0.9% 1,000 ML IV SCH ×2 (01:41→07:46)
[2019-03-12 07:16] LABS: #Basophils 0.1 thou/uL (0.0-0.2); #Eosinphils 0.4 thou/uL (0.0-0.7); #Lymphocytes 1.8 thou/uL (1.20-3.40); #Monocytes 0.7 thou/uL (0.11-0.59); #Neutrophils 5.1 thou/uL (1.40-6.50); %Basophils 0.7 % (0.0-1.0); %Eosinophils 4.5 % (0.0-10.0); %Lymphocytes 22.3 % (21.0-51.0); %Monocytes 8.1 % (0.0-10.0); %Neutrophils 64.5 % (42.0-75.0); Hemoglobin 7.8 g/dL (12.0-16.0); Mean Corpuscular HGB CONC 31.7 g/dL (32.0-36.0); Mean Corpuscular Hemoglobin 29.8 pg (27.0-31.0); Mean Corpuscular Volume 93.8 fL (78.0-98.0); Mean Platelet Volume 5.8 fL (7.4-10.4); Platelet Count 272 thou/uL (130-400); RBC Distribution Width 15.1 % (11.5-14.5); Red Blood Cell (RBC) Count 2.62 mill/uL (4.20-5.40); White Blood Cell (WBC) Count 7.9 thou/uL (4.8-10.8)
[2019-03-12 07:28] LABS: Anion Gap 13 mmol/L (10-20); BUN (Urea Nitrogen) 61 mg/dL (9.8-20.1); Calc. Creatinine Clearance 55 mL/min (70-130); Calcium 9.2 mg/dL (7.8-10.44); Carbon Dioxide 26 mmol/L (23-31); Chloride 106 mmol/L (98-107); Estimated GFR-MDRD 29; Glucose 110 mg/dL (80-115); Potassium 5.1 mmol/L (3.5-5.1); Sodium 140 mmol/L (136-145)
[2019-03-12] MEDS: traMADol HCl 50 MG TAB PO PRN (08:30)
[2019-03-12] MEDS: Ascorbic Acid 500 mg Chewable Tablet PO SCH (08:31)
[2019-03-12] MEDS: Oxybutynin ER 5 MG TAB PO SCH (08:31)
[2019-03-12] MEDS: Multivitamin W/ Minerals 1 TAB PO SCH (08:31)
[2019-03-12] MEDS: Carvedilol 12.5 MG TAB PO SCH ×2 (08:31→20:18)
[2019-03-12] MEDS: Pioglitazone HCl 15 MG TAB PO SCH (08:31)
[2019-03-12] MEDS: Aspirin 81 mg Enteric Coated Tablet PO SCH ×2 (08:31→20:18)
[2019-03-12] MEDS: Gabapentin 100 MG CAP PO SCH ×3 (08:31→20:17)
[2019-03-12] MEDS: Ferrous Sulfate 325 MG TAB PO SCH ×2 (08:31→16:44)
[2019-03-12] MEDS: CRANBERRY 900 MG PO SCH (08:32)
[2019-03-12] MEDS: Polyethylene Glycol 3350 17 GM Packet PO SCH (08:32)
[2019-03-12] MEDS: Floranex Packet PO SCH (08:37)
[2019-03-12] MEDS: Amitriptyline HCl 25 MG TAB PO SCH (20:17)
[2019-03-13] MEDS: traMADol HCl 50 MG TAB PO PRN ×2 (04:58→11:00)
[2019-03-13] MEDS: Acetaminophen 500 MG TAB PO PRN (07:38)
[2019-03-13] MEDS: CRANBERRY 900 MG PO SCH (09:48)
[2019-03-13] MEDS: Aspirin 81 mg Enteric Coated Tablet PO SCH ×2 (09:49→20:22)
[2019-03-13] MEDS: Floranex Packet PO SCH (09:49)
[2019-03-13] MEDS: Pioglitazone HCl 15 MG TAB PO SCH (09:49)
[2019-03-13] MEDS: Polyethylene Glycol 3350 17 GM Packet PO SCH (09:49)
[2019-03-13] MEDS: Multivitamin W/ Minerals 1 TAB PO SCH (09:49)
[2019-03-13] MEDS: Gabapentin 100 MG CAP PO SCH ×3 (09:49→20:22)
[2019-03-13] MEDS: Carvedilol 12.5 MG TAB PO SCH ×2 (09:49→20:22)
[2019-03-13] MEDS: Oxybutynin ER 5 MG TAB PO SCH (09:49)
[2019-03-13] MEDS: Ascorbic Acid 500 mg Chewable Tablet PO SCH (09:49)
[2019-03-13] MEDS: Ferrous Sulfate 325 MG TAB PO SCH ×2 (09:49→16:59)
[2019-03-13] MEDS: Amitriptyline HCl 25 MG TAB PO SCH (20:22)
[2019-03-14] MEDS: traMADol HCl 50 MG TAB PO PRN (06:58)
[2019-03-14] MEDS: Ferrous Sulfate 325 MG TAB PO SCH ×2 (08:30→17:21)
[2019-03-14] MEDS: Oxybutynin ER 5 MG TAB PO SCH ×3 (08:30→21:23)
[2019-03-14] MEDS: Aspirin 81 mg Enteric Coated Tablet PO SCH ×2 (08:30→21:23)
[2019-03-14] MEDS: Pioglitazone HCl 15 MG TAB PO SCH (08:47)
[2019-03-14] MEDS: Multivitamin W/ Minerals 1 TAB PO SCH (08:47)
[2019-03-14] MEDS: Carvedilol 12.5 MG TAB PO SCH ×2 (08:47→21:23)
[2019-03-14] MEDS: Ascorbic Acid 500 mg Chewable Tablet PO SCH (08:47)
[2019-03-14] MEDS: Gabapentin 100 MG CAP PO SCH ×3 (08:47→21:22)
[2019-03-14] MEDS: Polyethylene Glycol 3350 17 GM Packet PO SCH (09:00)
[2019-03-14] MEDS: Floranex Packet PO SCH (11:39)
[2019-03-14] MEDS: CRANBERRY 900 MG PO SCH (11:53)
[2019-03-14] MEDS: Amitriptyline HCl 25 MG TAB PO SCH (21:23)
[2019-03-15] MEDS: Carvedilol 12.5 MG TAB PO SCH ×2 (08:45→20:22)
[2019-03-15] MEDS: Ferrous Sulfate 325 MG TAB PO SCH ×2 (08:45→16:37)
[2019-03-15] MEDS: Ascorbic Acid 500 mg Chewable Tablet PO SCH (08:45)
[2019-03-15] MEDS: CRANBERRY 900 MG PO SCH (08:45)
[2019-03-15] MEDS: Multivitamin W/ Minerals 1 TAB PO SCH (08:45)
[2019-03-15] MEDS: Aspirin 81 mg Enteric Coated Tablet PO SCH ×2 (08:45→20:23)
[2019-03-15] MEDS: Pioglitazone HCl 15 MG TAB PO SCH (08:45)
[2019-03-15] MEDS: Gabapentin 100 MG CAP PO SCH ×3 (08:46→20:22)
[2019-03-15] MEDS: Polyethylene Glycol 3350 17 GM Packet PO SCH (08:46)
[2019-03-15] MEDS: Floranex Packet PO SCH (08:46)
[2019-03-15] MEDS: Amitriptyline HCl 25 MG TAB PO SCH (20:22)
[2019-03-15] MEDS: Oxybutynin ER 5 MG TAB PO SCH (20:24)
[2019-03-16] MEDS: Acetaminophen 500 MG TAB PO PRN ×3 (01:19→23:57)
[2019-03-16] MEDS: Ferrous Sulfate 325 MG TAB PO SCH ×2 (08:10→17:06)
[2019-03-16] MEDS: Multivitamin W/ Minerals 1 TAB PO SCH (08:10)
[2019-03-16] MEDS: Ascorbic Acid 500 mg Chewable Tablet PO SCH (08:10)
[2019-03-16] MEDS: Gabapentin 100 MG CAP PO SCH ×3 (08:10→20:37)
[2019-03-16] MEDS: Pioglitazone HCl 15 MG TAB PO SCH (08:10)
[2019-03-16] MEDS: Floranex Packet PO SCH (08:10)
[2019-03-16] MEDS: Polyethylene Glycol 3350 17 GM Packet PO SCH (08:11)
[2019-03-16] MEDS: Carvedilol 12.5 MG TAB PO SCH ×2 (08:11→20:38)
[2019-03-16] MEDS: Aspirin 81 mg Enteric Coated Tablet PO SCH ×2 (08:11→20:38)
[2019-03-16] MEDS: CRANBERRY 900 MG PO SCH (08:11)
[2019-03-16] MEDS: traMADol HCl 50 MG TAB PO PRN (20:37)
[2019-03-16] MEDS: Amitriptyline HCl 25 MG TAB PO SCH (20:38)
[2019-03-16] MEDS: Oxybutynin ER 5 MG TAB PO SCH (20:38)
[2019-03-17 05:06] LABS: Hemoglobin 7.8 g/dL (12.0-16.0)
[2019-03-17 05:19] LABS: Anion Gap 16 mmol/L (10-20); BUN (Urea Nitrogen) 59 mg/dL (9.8-20.1); Calc. Creatinine Clearance 58 mL/min (70-130); Calcium 9.9 mg/dL (7.8-10.44); Carbon Dioxide 24 mmol/L (23-31); Chloride 108 mmol/L (98-107); Estimated GFR-MDRD 31; Glucose 100 mg/dL (80-115); Potassium 4.7 mmol/L (3.5-5.1); Sodium 143 mmol/L (136-145)
[2019-03-17] MEDS: traMADol HCl 50 MG TAB PO PRN (05:57)
[2019-03-17] MEDS: Acetaminophen 500 MG TAB PO PRN ×3 (06:01→21:15)
[2019-03-17] MEDS: CRANBERRY 900 MG PO SCH (08:20)
[2019-03-17] MEDS: Aspirin 81 mg Enteric Coated Tablet PO SCH ×2 (08:21→21:15)
[2019-03-17] MEDS: Ferrous Sulfate 325 MG TAB PO SCH ×2 (08:21→18:01)
[2019-03-17] MEDS: Ascorbic Acid 500 mg Chewable Tablet PO SCH (08:21)
[2019-03-17] MEDS: Floranex Packet PO SCH (08:21)
[2019-03-17] MEDS: Pioglitazone HCl 15 MG TAB PO SCH (08:21)
[2019-03-17] MEDS: Polyethylene Glycol 3350 17 GM Packet PO SCH (08:21)
[2019-03-17] MEDS: Gabapentin 100 MG CAP PO SCH ×3 (08:22→21:15)
[2019-03-17] MEDS: Carvedilol 12.5 MG TAB PO SCH ×2 (08:22→21:15)
[2019-03-17] MEDS: Multivitamin W/ Minerals 1 TAB PO SCH (08:22)
[2019-03-17] MEDS: Amitriptyline HCl 25 MG TAB PO SCH (21:15)
[2019-03-17] MEDS: Oxybutynin ER 5 MG TAB PO SCH (21:15)
[2019-03-18] MEDS: Acetaminophen 500 MG TAB PO PRN ×2 (09:03→21:18)
[2019-03-18] MEDS: traMADol HCl 50 MG TAB PO PRN (09:03)
[2019-03-18] MEDS: Pioglitazone HCl 15 MG TAB PO SCH (09:03)
[2019-03-18] MEDS: Floranex Packet PO SCH (09:03)
[2019-03-18] MEDS: Polyethylene Glycol 3350 17 GM Packet PO SCH ×2 (09:04→09:05)
[2019-03-18] MEDS: Ascorbic Acid 500 mg Chewable Tablet PO SCH (09:04)
[2019-03-18] MEDS: CRANBERRY 900 MG PO SCH (09:04)
[2019-03-18] MEDS: Multivitamin W/ Minerals 1 TAB PO SCH (09:04)
[2019-03-18] MEDS: Gabapentin 100 MG CAP PO SCH ×3 (09:04→21:18)
[2019-03-18] MEDS: Carvedilol 12.5 MG TAB PO SCH ×2 (09:04→21:18)
[2019-03-18] MEDS: Aspirin 81 mg Enteric Coated Tablet PO SCH ×2 (09:04→21:18)
[2019-03-18] MEDS: Ferrous Sulfate 325 MG TAB PO SCH ×2 (09:04→16:49)
[2019-03-18] MEDS: Amitriptyline HCl 25 MG TAB PO SCH (21:18)
[2019-03-18] MEDS: Oxybutynin ER 5 MG TAB PO SCH (21:18)
[2019-03-19] MEDS: traMADol HCl 50 MG TAB PO PRN ×2 (00:56→07:55)
[2019-03-19] MEDS: Gabapentin 100 MG CAP PO SCH ×3 (07:53→21:24)
[2019-03-19] MEDS: Pioglitazone HCl 15 MG TAB PO SCH (07:53)
[2019-03-19] MEDS: Ascorbic Acid 500 mg Chewable Tablet PO SCH (07:53)
[2019-03-19] MEDS: CRANBERRY 900 MG PO SCH (07:54)
[2019-03-19] MEDS: Aspirin 81 mg Enteric Coated Tablet PO SCH ×2 (07:54→21:24)
[2019-03-19] MEDS: Ferrous Sulfate 325 MG TAB PO SCH ×2 (07:54→16:40)
[2019-03-19] MEDS: Floranex Packet PO SCH (07:54)
[2019-03-19] MEDS: Carvedilol 12.5 MG TAB PO SCH ×2 (07:54→21:24)
[2019-03-19] MEDS: Multivitamin W/ Minerals 1 TAB PO SCH (07:54)
[2019-03-19] MEDS: Acetaminophen 500 MG TAB PO PRN (21:23)
[2019-03-19] MEDS: Amitriptyline HCl 25 MG TAB PO SCH (21:24)
[2019-03-19] MEDS: Oxybutynin ER 5 MG TAB PO SCH (21:24)
[2019-03-20] MEDS: Carvedilol 12.5 MG TAB PO SCH ×2 (08:12→21:27)
[2019-03-20] MEDS: Pioglitazone HCl 15 MG TAB PO SCH (08:12)
[2019-03-20] MEDS: Gabapentin 100 MG CAP PO SCH ×3 (08:12→21:24)
[2019-03-20] MEDS: Ascorbic Acid 500 mg Chewable Tablet PO SCH (08:12)
[2019-03-20] MEDS: Multivitamin W/ Minerals 1 TAB PO SCH (08:12)
[2019-03-20] MEDS: Ferrous Sulfate 325 MG TAB PO SCH ×2 (08:12→16:44)
[2019-03-20] MEDS: Aspirin 81 mg Enteric Coated Tablet PO SCH ×2 (08:13→21:23)
[2019-03-20] MEDS: Polyethylene Glycol 3350 17 GM Packet PO SCH (08:13)
[2019-03-20] MEDS: CRANBERRY 900 MG PO SCH (08:18)
[2019-03-20] MEDS: traMADol HCl 50 MG TAB PO PRN (08:18)
[2019-03-20] MEDS: Floranex Packet PO SCH (08:19)
[2019-03-20] MEDS: Oxybutynin ER 5 MG TAB PO SCH (21:24)
[2019-03-20] MEDS: Amitriptyline HCl 25 MG TAB PO SCH (21:24)
[2019-03-20] MEDS: Acetaminophen 500 MG TAB PO PRN (21:25)
[2019-03-21] MEDS: traMADol HCl 50 MG TAB PO PRN (07:15)
[2019-03-21] MEDS: Ferrous Sulfate 325 MG TAB PO SCH ×2 (07:16→17:00)
[2019-03-21 08:28] LABS: Hemoglobin 8.8 g/dL (12.0-16.0); Platelet Count 291 thou/uL (130-400)
[2019-03-21] MEDS: Floranex Packet PO SCH (09:52)
[2019-03-21] MEDS: Carvedilol 12.5 MG TAB PO SCH ×2 (09:52→20:34)
[2019-03-21] MEDS: Polyethylene Glycol 3350 17 GM Packet PO SCH (09:52)
[2019-03-21] MEDS: Aspirin 81 mg Enteric Coated Tablet PO SCH ×2 (09:52→20:33)
[2019-03-21] MEDS: Gabapentin 100 MG CAP PO SCH ×3 (09:52→20:34)
[2019-03-21] MEDS: Pioglitazone HCl 15 MG TAB PO SCH (09:52)
[2019-03-21] MEDS: Multivitamin W/ Minerals 1 TAB PO SCH (09:52)
[2019-03-21] MEDS: Ascorbic Acid 500 mg Chewable Tablet PO SCH (09:52)
[2019-03-21] MEDS: CRANBERRY 900 MG PO SCH (09:54)
[2019-03-21] MEDS: Acetaminophen 500 MG TAB PO PRN (20:33)
[2019-03-21] MEDS: Oxybutynin ER 5 MG TAB PO SCH (20:33)
[2019-03-21] MEDS: Rosuvastatin 10 MG TAB PO SCH (20:35)
[2019-03-21] MEDS: Amitriptyline HCl 25 MG TAB PO SCH (20:35)
[2019-03-22] MEDS: CRANBERRY 900 MG PO SCH (08:14)
[2019-03-22] MEDS: Floranex Packet PO SCH (08:14)
[2019-03-22] MEDS: Ascorbic Acid 500 mg Chewable Tablet PO SCH (08:15)
[2019-03-22] MEDS: Aspirin 81 mg Enteric Coated Tablet PO SCH ×2 (08:15→21:07)
[2019-03-22] MEDS: Gabapentin 100 MG CAP PO SCH ×3 (08:15→21:07)
[2019-03-22] MEDS: Polyethylene Glycol 3350 17 GM Packet PO SCH (08:15)
[2019-03-22] MEDS: Multivitamin W/ Minerals 1 TAB PO SCH (08:15)
[2019-03-22] MEDS: Pioglitazone HCl 15 MG TAB PO SCH (08:15)
[2019-03-22] MEDS: Ferrous Sulfate 325 MG TAB PO SCH ×2 (08:15→17:05)
[2019-03-22] MEDS: Carvedilol 12.5 MG TAB PO SCH ×2 (08:15→21:07)
[2019-03-22] MEDS: Amitriptyline HCl 25 MG TAB PO SCH (21:07)
[2019-03-22] MEDS: Oxybutynin ER 5 MG TAB PO SCH (21:07)
[2019-03-22] MEDS: Rosuvastatin 10 MG TAB PO SCH (21:30)
[2019-03-23] MEDS: traMADol HCl 50 MG TAB PO PRN (03:14)
[2019-03-23] MEDS: Carvedilol 12.5 MG TAB PO SCH ×2 (08:19→20:28)
[2019-03-23] MEDS: Pioglitazone HCl 15 MG TAB PO SCH (08:19)
[2019-03-23] MEDS: Aspirin 81 mg Enteric Coated Tablet PO SCH ×2 (08:19→20:28)
[2019-03-23] MEDS: Ferrous Sulfate 325 MG TAB PO SCH ×2 (08:19→17:19)
[2019-03-23] MEDS: Floranex Packet PO SCH (08:19)
[2019-03-23] MEDS: Ascorbic Acid 500 mg Chewable Tablet PO SCH (08:19)
[2019-03-23] MEDS: Gabapentin 100 MG CAP PO SCH ×4 (08:19→20:29)
[2019-03-23] MEDS: Multivitamin W/ Minerals 1 TAB PO SCH (08:19)
[2019-03-23] MEDS: Polyethylene Glycol 3350 17 GM Packet PO SCH (08:19)
[2019-03-23] MEDS: CRANBERRY 900 MG PO SCH (08:20)
[2019-03-23] MEDS: Amitriptyline HCl 25 MG TAB PO SCH (20:28)
[2019-03-23] MEDS: Oxybutynin ER 5 MG TAB PO SCH (20:29)
[2019-03-23] MEDS: Rosuvastatin 10 MG TAB PO SCH (20:29)
[2019-03-24] MEDS: traMADol HCl 50 MG TAB PO PRN (06:31)
[2019-03-24] MEDS: Carvedilol 12.5 MG TAB PO SCH ×2 (08:31→21:01)
[2019-03-24] MEDS: Gabapentin 100 MG CAP PO SCH ×3 (08:31→21:01)
[2019-03-24] MEDS: Floranex Packet PO SCH (08:31)
[2019-03-24] MEDS: Polyethylene Glycol 3350 17 GM Packet PO SCH (08:31)
[2019-03-24] MEDS: Pioglitazone HCl 15 MG TAB PO SCH (08:31)
[2019-03-24] MEDS: Ferrous Sulfate 325 MG TAB PO SCH ×2 (08:32→17:13)
[2019-03-24] MEDS: Aspirin 81 mg Enteric Coated Tablet PO SCH ×2 (08:32→21:01)
[2019-03-24] MEDS: Multivitamin W/ Minerals 1 TAB PO SCH (08:32)
[2019-03-24] MEDS: Ascorbic Acid 500 mg Chewable Tablet PO SCH (08:32)
[2019-03-24] MEDS: CRANBERRY 900 MG PO SCH (08:34)
[2019-03-24] MEDS ORDERED: Sodium Chloride Irrig Solution 250 ML BOT ONE (11:14)
[2019-03-24] MEDS: Amitriptyline HCl 25 MG TAB PO SCH (21:00)
[2019-03-24] MEDS: Oxybutynin ER 5 MG TAB PO SCH (21:01)
[2019-03-24] MEDS: Rosuvastatin 10 MG TAB PO SCH (21:01)
[2019-03-24] MEDS: Acetaminophen 500 MG TAB PO PRN (21:05)
[2019-03-25] MEDS: Floranex Packet PO SCH (08:28)
[2019-03-25] MEDS: Aspirin 81 mg Enteric Coated Tablet PO SCH ×2 (08:29→20:15)
[2019-03-25] MEDS: Polyethylene Glycol 3350 17 GM Packet PO SCH (08:29)
[2019-03-25] MEDS: Carvedilol 12.5 MG TAB PO SCH ×2 (08:29→20:13)
[2019-03-25] MEDS: Gabapentin 100 MG CAP PO SCH ×3 (08:29→20:14)
[2019-03-25] MEDS: Pioglitazone HCl 15 MG TAB PO SCH (08:29)
[2019-03-25] MEDS: Multivitamin W/ Minerals 1 TAB PO SCH (08:29)
[2019-03-25] MEDS: Ascorbic Acid 500 mg Chewable Tablet PO SCH (08:29)
[2019-03-25] MEDS: Ferrous Sulfate 325 MG TAB PO SCH ×2 (08:29→16:35)
[2019-03-25] MEDS: CRANBERRY 900 MG PO SCH (08:29)
[2019-03-25] MEDS: traMADol HCl 50 MG TAB PO PRN (13:08)
[2019-03-25] MEDS: Rosuvastatin 10 MG TAB PO SCH (20:12)
[2019-03-25] MEDS: Oxybutynin ER 5 MG TAB PO SCH (20:13)
[2019-03-25] MEDS: Acetaminophen 500 MG TAB PO PRN (20:13)
[2019-03-25] MEDS: Amitriptyline HCl 25 MG TAB PO SCH (20:14)
[2019-03-26] MEDS: Polyethylene Glycol 3350 17 GM Packet PO SCH (08:02)
[2019-03-26] MEDS: Floranex Packet PO SCH (08:02)
[2019-03-26] MEDS: Aspirin 81 mg Enteric Coated Tablet PO SCH ×2 (08:03→20:58)
[2019-03-26] MEDS: Ferrous Sulfate 325 MG TAB PO SCH ×2 (08:03→16:52)
[2019-03-26] MEDS: Gabapentin 100 MG CAP PO SCH ×3 (08:03→20:58)
[2019-03-26] MEDS: Multivitamin W/ Minerals 1 TAB PO SCH (08:04)
[2019-03-26] MEDS: Pioglitazone HCl 15 MG TAB PO SCH (08:04)
[2019-03-26] MEDS: Ascorbic Acid 500 mg Chewable Tablet PO SCH (08:04)
[2019-03-26] MEDS: Carvedilol 12.5 MG TAB PO SCH ×2 (08:04→20:59)
[2019-03-26] MEDS: CRANBERRY 900 MG PO SCH (08:04)
[2019-03-26] MEDS: Acetaminophen 500 MG TAB PO PRN ×2 (08:07→20:59)
[2019-03-26] MEDS: Rosuvastatin 10 MG TAB PO SCH (20:57)
[2019-03-26] MEDS: Oxybutynin ER 5 MG TAB PO SCH (20:58)
[2019-03-26] MEDS: Amitriptyline HCl 25 MG TAB PO SCH (20:58)
[2019-03-27] MEDS: Acetaminophen 500 MG TAB PO PRN ×2 (03:50→20:14)
[2019-03-27] MEDS: traMADol HCl 50 MG TAB PO PRN (06:29)
[2019-03-27] MEDS: Aspirin 81 mg Enteric Coated Tablet PO SCH ×2 (08:41→20:15)
[2019-03-27] MEDS: Pioglitazone HCl 15 MG TAB PO SCH (08:41)
[2019-03-27] MEDS: Floranex Packet PO SCH (08:41)
[2019-03-27] MEDS: Ascorbic Acid 500 mg Chewable Tablet PO SCH (08:42)
[2019-03-27] MEDS: Carvedilol 12.5 MG TAB PO SCH ×2 (08:42→20:15)
[2019-03-27] MEDS: Ferrous Sulfate 325 MG TAB PO SCH ×2 (08:42→17:10)
[2019-03-27] MEDS: Multivitamin W/ Minerals 1 TAB PO SCH (08:42)
[2019-03-27] MEDS: Gabapentin 100 MG CAP PO SCH ×3 (08:42→20:15)
[2019-03-27] MEDS: CRANBERRY 900 MG PO SCH (08:43)
[2019-03-27] MEDS: Polyethylene Glycol 3350 17 GM Packet PO SCH (08:44)
[2019-03-27] MEDS: Oxybutynin ER 5 MG TAB PO SCH (20:15)
[2019-03-27] MEDS: Rosuvastatin 10 MG TAB PO SCH (20:15)
[2019-03-27] MEDS: Amitriptyline HCl 25 MG TAB PO SCH (20:16)
[2019-03-28] MEDS: Acetaminophen 500 MG TAB PO PRN ×3 (04:04→20:16)
[2019-03-28] MEDS: traMADol HCl 50 MG TAB PO PRN (05:49)
[2019-03-28] MEDS: Gabapentin 100 MG CAP PO SCH ×3 (08:12→20:18)
[2019-03-28] MEDS: Pioglitazone HCl 15 MG TAB PO SCH (08:12)
[2019-03-28] MEDS: Aspirin 81 mg Enteric Coated Tablet PO SCH ×2 (08:12→20:19)
[2019-03-28] MEDS: Floranex Packet PO SCH (08:12)
[2019-03-28] MEDS: Polyethylene Glycol 3350 17 GM Packet PO SCH (08:12)
[2019-03-28] MEDS: Ferrous Sulfate 325 MG TAB PO SCH ×2 (08:12→17:05)
[2019-03-28] MEDS: Multivitamin W/ Minerals 1 TAB PO SCH (08:13)
[2019-03-28] MEDS: Carvedilol 12.5 MG TAB PO SCH ×2 (08:13→20:18)
[2019-03-28] MEDS: Ascorbic Acid 500 mg Chewable Tablet PO SCH (08:13)
[2019-03-28] MEDS: CRANBERRY 900 MG PO SCH (08:17)
[2019-03-28] MEDS: Rosuvastatin 10 MG TAB PO SCH (20:16)
[2019-03-28] MEDS: Amitriptyline HCl 25 MG TAB PO SCH (20:17)
[2019-03-28] MEDS: Oxybutynin ER 5 MG TAB PO SCH (20:18)
[2019-03-29] MEDS: Gabapentin 100 MG CAP PO SCH ×3 (08:03→20:38)
[2019-03-29] MEDS: Multivitamin W/ Minerals 1 TAB PO SCH (08:03)
[2019-03-29] MEDS: Pioglitazone HCl 15 MG TAB PO SCH (08:03)
[2019-03-29] MEDS: Ferrous Sulfate 325 MG TAB PO SCH ×2 (08:03→17:00)
[2019-03-29] MEDS: Aspirin 81 mg Enteric Coated Tablet PO SCH ×2 (08:03→20:38)
[2019-03-29] MEDS: Ascorbic Acid 500 mg Chewable Tablet PO SCH (08:03)
[2019-03-29] MEDS: CRANBERRY 900 MG PO SCH (08:04)
[2019-03-29] MEDS: Carvedilol 12.5 MG TAB PO SCH ×2 (08:04→20:38)
[2019-03-29] MEDS: Floranex Packet PO SCH (08:04)
[2019-03-29] MEDS: Polyethylene Glycol 3350 17 GM Packet PO SCH (08:05)
[2019-03-29] MEDS: Acetaminophen 500 MG TAB PO PRN (14:27)
[2019-03-29] MEDS: Oxybutynin ER 5 MG TAB PO SCH (20:38)
[2019-03-29] MEDS: Amitriptyline HCl 25 MG TAB PO SCH (20:38)
[2019-03-29] MEDS: Rosuvastatin 10 MG TAB PO SCH (20:38)
[2019-03-30] MEDS: Acetaminophen 500 MG TAB PO PRN ×3 (02:13→20:19)
[2019-03-30] MEDS: Carvedilol 12.5 MG TAB PO SCH ×2 (07:59→20:15)
[2019-03-30] MEDS: Pioglitazone HCl 15 MG TAB PO SCH (07:59)
[2019-03-30] MEDS: Aspirin 81 mg Enteric Coated Tablet PO SCH ×2 (07:59→20:15)
[2019-03-30] MEDS: Floranex Packet PO SCH (07:59)
[2019-03-30] MEDS: Ascorbic Acid 500 mg Chewable Tablet PO SCH (07:59)
[2019-03-30] MEDS: Gabapentin 100 MG CAP PO SCH ×3 (07:59→20:15)
[2019-03-30] MEDS: Multivitamin W/ Minerals 1 TAB PO SCH (08:00)
[2019-03-30] MEDS: Ferrous Sulfate 325 MG TAB PO SCH ×2 (08:00→17:11)
[2019-03-30] MEDS: CRANBERRY 900 MG PO SCH (08:01)
[2019-03-30] MEDS: Polyethylene Glycol 3350 17 GM Packet PO SCH (08:03)
[2019-03-30] MEDS ORDERED: Fleet Enema 133 ML BOT FS PRN (13:55)
[2019-03-30] MEDS: Rosuvastatin 10 MG TAB PO SCH (20:15)
[2019-03-30] MEDS: Oxybutynin ER 5 MG TAB PO SCH (20:15)
[2019-03-30] MEDS: Amitriptyline HCl 25 MG TAB PO SCH (20:15)
[2019-03-31] MEDS: Acetaminophen 500 MG TAB PO PRN (01:37)
[2019-03-31] MEDS: traMADol HCl 50 MG TAB PO PRN ×2 (06:45→20:49)
[2019-03-31] MEDS: Pioglitazone HCl 15 MG TAB PO SCH (08:17)
[2019-03-31] MEDS: Multivitamin W/ Minerals 1 TAB PO SCH (08:17)
[2019-03-31] MEDS: Floranex Packet PO SCH (08:17)
[2019-03-31] MEDS: Ascorbic Acid 500 mg Chewable Tablet PO SCH (08:17)
[2019-03-31] MEDS: Ferrous Sulfate 325 MG TAB PO SCH ×2 (08:18→17:32)
[2019-03-31] MEDS: CRANBERRY 900 MG PO SCH (08:18)
[2019-03-31] MEDS: Carvedilol 12.5 MG TAB PO SCH ×2 (08:18→20:52)
[2019-03-31] MEDS: Gabapentin 100 MG CAP PO SCH ×3 (08:18→20:49)
[2019-03-31] MEDS: Aspirin 81 mg Enteric Coated Tablet PO SCH ×2 (08:18→20:47)
[2019-03-31] MEDS: Polyethylene Glycol 3350 17 GM Packet PO SCH (08:18)
[2019-03-31] MEDS ORDERED: Lisinopril 10 MG TAB PO SCH (12:45)
[2019-03-31] MEDS: Oxybutynin ER 5 MG TAB PO SCH (20:47)
[2019-03-31] MEDS: Rosuvastatin 10 MG TAB PO SCH (20:48)
[2019-03-31] MEDS: Amitriptyline HCl 25 MG TAB PO SCH (20:48)
[2019-04-01] MEDS: Acetaminophen 500 MG TAB PO PRN ×3 (01:08→20:28)
[2019-04-01] MEDS: traMADol HCl 50 MG TAB PO PRN (06:07)
[2019-04-01] MEDS: CRANBERRY 900 MG PO SCH (08:21)
[2019-04-01] MEDS: Pioglitazone HCl 15 MG TAB PO SCH (08:22)
[2019-04-01] MEDS: Lisinopril 10 MG TAB PO SCH (08:22)
[2019-04-01] MEDS: Carvedilol 12.5 MG TAB PO SCH ×2 (08:22→20:28)
[2019-04-01] MEDS: Multivitamin W/ Minerals 1 TAB PO SCH (08:22)
[2019-04-01] MEDS: Aspirin 81 mg Enteric Coated Tablet PO SCH ×2 (08:22→20:28)
[2019-04-01] MEDS: Polyethylene Glycol 3350 17 GM Packet PO SCH (08:23)
[2019-04-01] MEDS: Gabapentin 100 MG CAP PO SCH ×3 (08:23→20:28)
[2019-04-01] MEDS: Ferrous Sulfate 325 MG TAB PO SCH ×2 (08:23→17:10)
[2019-04-01] MEDS: Ascorbic Acid 500 mg Chewable Tablet PO SCH (08:23)
[2019-04-01] MEDS: Floranex Packet PO SCH (08:23)
[2019-04-01] MEDS: Amitriptyline HCl 25 MG TAB PO SCH (20:27)
[2019-04-01] MEDS: Rosuvastatin 10 MG TAB PO SCH (20:28)
[2019-04-01] MEDS: Oxybutynin ER 5 MG TAB PO SCH (20:28)
[2019-04-02] MEDS: traMADol HCl 50 MG TAB PO PRN (06:02)
[2019-04-02] MEDS: Floranex Packet PO SCH (08:17)
[2019-04-02] MEDS: Polyethylene Glycol 3350 17 GM Packet PO SCH (08:18)
[2019-04-02] MEDS: Gabapentin 100 MG CAP PO SCH ×3 (08:19→20:30)
[2019-04-02] MEDS: Ascorbic Acid 500 mg Chewable Tablet PO SCH (08:19)
[2019-04-02] MEDS: Multivitamin W/ Minerals 1 TAB PO SCH (08:19)
[2019-04-02] MEDS: Aspirin 81 mg Enteric Coated Tablet PO SCH ×2 (08:19→20:30)
[2019-04-02] MEDS: Lisinopril 10 MG TAB PO SCH (08:19)
[2019-04-02] MEDS: Pioglitazone HCl 15 MG TAB PO SCH (08:19)
[2019-04-02] MEDS: Ferrous Sulfate 325 MG TAB PO SCH ×2 (08:19→17:07)
[2019-04-02] MEDS: Carvedilol 12.5 MG TAB PO SCH ×2 (08:19→20:30)
[2019-04-02] MEDS: CRANBERRY 900 MG PO SCH (08:20)
[2019-04-02] MEDS: Rosuvastatin 10 MG TAB PO SCH (20:30)
[2019-04-02] MEDS: Acetaminophen 500 MG TAB PO PRN (20:30)
[2019-04-02] MEDS: Oxybutynin ER 5 MG TAB PO SCH (20:30)
[2019-04-02] MEDS: Amitriptyline HCl 25 MG TAB PO SCH (20:30)
[2019-04-03 06:06] LABS: Bilirubin Negative (Negative); Blood, Urine Moderate (Negative); Clarity Cloudy (Clear); Glucose, Urine (Dipstick) Negative (Negative); Leukocyte Large (Negative); Nitrite Negative (Negative); Protein, Urine (Dipstick) 100 mg/dL (Neg-Trace); Urobilinogen 0.2 mg/dL (Less than 2)
[2019-04-03] MEDS: traMADol HCl 50 MG TAB PO PRN (06:09)
[2019-04-03 06:13] LABS: Bacteria/HPF 2+ HPF (None Seen); WBC/HPF Greater Than 50 HPF (0-3)
[2019-04-03 06:14] LABS: Other Microscopic Description C&S SET UP
[2019-04-03 06:32] LABS: Urine Culture Reflex No No
[2019-04-03] MEDS: Polyethylene Glycol 3350 17 GM Packet PO SCH (08:16)
[2019-04-03] MEDS: Pioglitazone HCl 15 MG TAB PO SCH (08:17)
[2019-04-03] MEDS: Ascorbic Acid 500 mg Chewable Tablet PO SCH (08:17)
[2019-04-03] MEDS: Gabapentin 100 MG CAP PO SCH ×3 (08:17→20:28)
[2019-04-03] MEDS: Aspirin 81 mg Enteric Coated Tablet PO SCH ×2 (08:18→20:29)
[2019-04-03] MEDS: Lisinopril 10 MG TAB PO SCH (08:18)
[2019-04-03] MEDS: Ferrous Sulfate 325 MG TAB PO SCH ×2 (08:18→17:09)
[2019-04-03] MEDS: Multivitamin W/ Minerals 1 TAB PO SCH (08:18)
[2019-04-03] MEDS: Carvedilol 12.5 MG TAB PO SCH ×2 (08:18→20:29)
[2019-04-03] MEDS: Floranex Packet PO SCH (08:19)
[2019-04-03] MEDS: CRANBERRY 900 MG PO SCH (08:20)
[2019-04-03] MEDS: Acetaminophen 500 MG TAB PO PRN ×2 (10:41→20:31)
[2019-04-03] MEDS ORDERED: Cefdinir 300 MG CAP PO SCH (12:15)
[2019-04-03] MEDS: Rosuvastatin 10 MG TAB PO SCH (20:28)
[2019-04-03] MEDS: Cefdinir 300 MG CAP PO SCH (20:28)
[2019-04-03] MEDS: Amitriptyline HCl 25 MG TAB PO SCH (20:28)
[2019-04-03] MEDS: Oxybutynin ER 5 MG TAB PO SCH (20:29)
[2019-04-04] MEDS: traMADol HCl 50 MG TAB PO PRN (06:00)
[2019-04-04] MEDS: Ascorbic Acid 500 mg Chewable Tablet PO SCH (08:04)
[2019-04-04] MEDS: Floranex Packet PO SCH (08:04)
[2019-04-04] MEDS: Carvedilol 12.5 MG TAB PO SCH ×2 (08:04→20:07)
[2019-04-04] MEDS: Gabapentin 100 MG CAP PO SCH ×3 (08:04→20:07)
[2019-04-04] MEDS: Ferrous Sulfate 325 MG TAB PO SCH ×2 (08:04→17:08)
[2019-04-04] MEDS: Multivitamin W/ Minerals 1 TAB PO SCH (08:04)
[2019-04-04] MEDS: Polyethylene Glycol 3350 17 GM Packet PO SCH (08:04)
[2019-04-04] MEDS: Lisinopril 10 MG TAB PO SCH (08:04)
[2019-04-04] MEDS: Pioglitazone HCl 15 MG TAB PO SCH (08:04)
[2019-04-04] MEDS: Cefdinir 300 MG CAP PO SCH ×2 (08:05→20:06)
[2019-04-04] MEDS: Aspirin 81 mg Enteric Coated Tablet PO SCH ×2 (08:05→20:05)
[2019-04-04] MEDS: CRANBERRY 900 MG PO SCH (08:05)
[2019-04-04] MEDS: Amitriptyline HCl 25 MG TAB PO SCH (20:04)
[2019-04-04] MEDS: Acetaminophen 500 MG TAB PO PRN (20:05)
[2019-04-04] MEDS: Rosuvastatin 10 MG TAB PO SCH (20:06)
[2019-04-04] MEDS: Oxybutynin ER 5 MG TAB PO SCH (20:06)
[2019-04-05] MEDS: Polyethylene Glycol 3350 17 GM Packet PO SCH (09:08)
[2019-04-05] MEDS: Multivitamin W/ Minerals 1 TAB PO SCH (09:09)
[2019-04-05] MEDS: Pioglitazone HCl 15 MG TAB PO SCH (09:09)
[2019-04-05] MEDS: Floranex Packet PO SCH (09:09)
[2019-04-05] MEDS: Lisinopril 10 MG TAB PO SCH (09:09)
[2019-04-05] MEDS: Cefdinir 300 MG CAP PO SCH ×2 (09:09→21:01)
[2019-04-05] MEDS: Ferrous Sulfate 325 MG TAB PO SCH ×2 (09:09→17:05)
[2019-04-05] MEDS: Aspirin 81 mg Enteric Coated Tablet PO SCH ×2 (09:09→21:01)
[2019-04-05] MEDS: Ascorbic Acid 500 mg Chewable Tablet PO SCH (09:09)
[2019-04-05] MEDS: Gabapentin 100 MG CAP PO SCH ×3 (09:09→21:02)
[2019-04-05] MEDS: CRANBERRY 900 MG PO SCH (09:10)
[2019-04-05] MEDS: Acetaminophen 500 MG TAB PO PRN ×2 (13:45→21:00)
[2019-04-05] MEDS: Rosuvastatin 10 MG TAB PO SCH (21:00)
[2019-04-05] MEDS: Amitriptyline HCl 25 MG TAB PO SCH (21:00)
[2019-04-05] MEDS: Oxybutynin ER 5 MG TAB PO SCH (21:01)
[2019-04-06] MEDS: Acetaminophen 500 MG TAB PO PRN ×2 (03:15→20:12)
[2019-04-06] MEDS: Lisinopril 10 MG TAB PO SCH (08:40)
[2019-04-06] MEDS: Ascorbic Acid 500 mg Chewable Tablet PO SCH (08:40)
[2019-04-06] MEDS: Multivitamin W/ Minerals 1 TAB PO SCH (08:40)
[2019-04-06] MEDS: Ferrous Sulfate 325 MG TAB PO SCH ×2 (08:40→17:05)
[2019-04-06] MEDS: Gabapentin 100 MG CAP PO SCH ×3 (08:40→20:14)
[2019-04-06] MEDS: Cefdinir 300 MG CAP PO SCH ×2 (08:40→20:12)
[2019-04-06] MEDS: Polyethylene Glycol 3350 17 GM Packet PO SCH (08:40)
[2019-04-06] MEDS: Pioglitazone HCl 15 MG TAB PO SCH (08:40)
[2019-04-06] MEDS: Aspirin 81 mg Enteric Coated Tablet PO SCH ×2 (08:40→20:14)
[2019-04-06] MEDS: Floranex Packet PO SCH (08:40)
[2019-04-06] MEDS: CRANBERRY 900 MG PO SCH (08:41)
[2019-04-06] MEDS: [UNRECOGNIZED DRUG - OTHER] SC SCH (08:47)
[2019-04-06] MEDS: Amitriptyline HCl 25 MG TAB PO SCH (20:13)
[2019-04-06] MEDS: Rosuvastatin 10 MG TAB PO SCH (20:13)
[2019-04-06] MEDS: Oxybutynin ER 5 MG TAB PO SCH (20:14)
[2019-04-07] MEDS: Acetaminophen 500 MG TAB PO PRN ×2 (02:22→16:01)
[2019-04-07] MEDS: traMADol HCl 50 MG TAB PO PRN (06:11)
[2019-04-07] MEDS: Lisinopril 10 MG TAB PO SCH (08:06)
[2019-04-07] MEDS: Polyethylene Glycol 3350 17 GM Packet PO SCH (08:06)
[2019-04-07] MEDS: Floranex Packet PO SCH (08:06)
[2019-04-07] MEDS: Multivitamin W/ Minerals 1 TAB PO SCH (08:07)
[2019-04-07] MEDS: Ferrous Sulfate 325 MG TAB PO SCH ×2 (08:07→17:00)
[2019-04-07] MEDS: Cefdinir 300 MG CAP PO SCH (08:07)
[2019-04-07] MEDS: Ascorbic Acid 500 mg Chewable Tablet PO SCH (08:07)
[2019-04-07] MEDS: Pioglitazone HCl 15 MG TAB PO SCH (08:07)
[2019-04-07] MEDS: Gabapentin 100 MG CAP PO SCH ×3 (08:07→20:50)
[2019-04-07] MEDS: CRANBERRY 900 MG PO SCH (08:08)
[2019-04-07] MEDS: Aspirin 81 mg Enteric Coated Tablet PO SCH ×2 (08:10→20:50)
[2019-04-07] MEDS: [UNRECOGNIZED DRUG - OTHER] SC SCH (16:08)
[2019-04-07] MEDS: Amitriptyline HCl 25 MG TAB PO SCH (20:49)
[2019-04-07] MEDS: Rosuvastatin 10 MG TAB PO SCH (20:50)
[2019-04-07] MEDS: Oxybutynin ER 5 MG TAB PO SCH (20:50)
[2019-04-08] MEDS: traMADol HCl 50 MG TAB PO PRN (06:11)
[2019-04-08] MEDS: Polyethylene Glycol 3350 17 GM Packet PO SCH (07:55)
[2019-04-08] MEDS: Aspirin 81 mg Enteric Coated Tablet PO SCH ×2 (07:55→20:20)
[2019-04-08] MEDS: Ferrous Sulfate 325 MG TAB PO SCH ×2 (07:55→16:57)
[2019-04-08] MEDS: Lisinopril 10 MG TAB PO SCH (07:56)
[2019-04-08] MEDS: Multivitamin W/ Minerals 1 TAB PO SCH (07:56)
[2019-04-08] MEDS: Floranex Packet PO SCH (07:56)
[2019-04-08] MEDS: CRANBERRY 900 MG PO SCH (07:56)
[2019-04-08] MEDS: Pioglitazone HCl 15 MG TAB PO SCH (07:56)
[2019-04-08] MEDS: Ascorbic Acid 500 mg Chewable Tablet PO SCH (07:56)
[2019-04-08] MEDS: Gabapentin 100 MG CAP PO SCH ×3 (07:56→20:20)
[2019-04-08] MEDS: Acetaminophen 500 MG TAB PO PRN ×2 (08:01→20:20)
[2019-04-08] MEDS: Amitriptyline HCl 25 MG TAB PO SCH (20:19)
[2019-04-08] MEDS: Oxybutynin ER 5 MG TAB PO SCH (20:20)
[2019-04-08] MEDS: Rosuvastatin 10 MG TAB PO SCH (20:20)
[2019-04-09] MEDS: traMADol HCl 50 MG TAB PO PRN ×2 (06:12→15:05)
[2019-04-09] MEDS: Aspirin 81 mg Enteric Coated Tablet PO SCH ×2 (08:33→21:10)
[2019-04-09] MEDS: Gabapentin 100 MG CAP PO SCH ×3 (08:33→21:11)
[2019-04-09] MEDS: CRANBERRY 900 MG PO SCH (08:33)
[2019-04-09] MEDS: Ascorbic Acid 500 mg Chewable Tablet PO SCH (08:33)
[2019-04-09] MEDS: Polyethylene Glycol 3350 17 GM Packet PO SCH (08:33)
[2019-04-09] MEDS: Floranex Packet PO SCH (08:33)
[2019-04-09] MEDS: Ferrous Sulfate 325 MG TAB PO SCH ×2 (08:33→16:59)
[2019-04-09] MEDS: Multivitamin W/ Minerals 1 TAB PO SCH (08:33)
[2019-04-09] MEDS: Pioglitazone HCl 15 MG TAB PO SCH (08:33)
[2019-04-09] MEDS: Lisinopril 10 MG TAB PO SCH (08:33)
[2019-04-09] MEDS: Acetaminophen 500 MG TAB PO PRN ×2 (08:40→21:13)
[2019-04-09] MEDS: Oxybutynin ER 5 MG TAB PO SCH (21:10)
[2019-04-09] MEDS: Amitriptyline HCl 25 MG TAB PO SCH (21:10)
[2019-04-09] MEDS: Rosuvastatin 10 MG TAB PO SCH (21:11)
[2019-04-10] MEDS: traMADol HCl 50 MG TAB PO PRN (06:08)
[2019-04-10] MEDS: Polyethylene Glycol 3350 17 GM Packet PO SCH (08:14)
[2019-04-10] MEDS: Gabapentin 100 MG CAP PO SCH ×3 (08:15→20:24)
[2019-04-10] MEDS: Floranex Packet PO SCH (08:15)
[2019-04-10] MEDS: Aspirin 81 mg Enteric Coated Tablet PO SCH ×2 (08:15→20:24)
[2019-04-10] MEDS: Pioglitazone HCl 15 MG TAB PO SCH (08:15)
[2019-04-10] MEDS: Ascorbic Acid 500 mg Chewable Tablet PO SCH (08:16)
[2019-04-10] MEDS: Lisinopril 10 MG TAB PO SCH (08:16)
[2019-04-10] MEDS: Ferrous Sulfate 325 MG TAB PO SCH ×2 (08:16→17:40)
[2019-04-10] MEDS: Multivitamin W/ Minerals 1 TAB PO SCH (08:16)
[2019-04-10] MEDS: CRANBERRY 900 MG PO SCH (08:20)
[2019-04-10] MEDS: Amitriptyline HCl 25 MG TAB PO SCH (20:24)
[2019-04-10] MEDS: Rosuvastatin 10 MG TAB PO SCH (20:24)
[2019-04-10] MEDS: Oxybutynin ER 5 MG TAB PO SCH (20:24)
[2019-04-10] MEDS: Acetaminophen 500 MG TAB PO PRN (21:29)
[2019-04-11] MEDS: traMADol HCl 50 MG TAB PO PRN ×2 (00:26→06:09)
[2019-04-11] MEDS: Floranex Packet PO SCH (09:36)
[2019-04-11] MEDS: Polyethylene Glycol 3350 17 GM Packet PO SCH (09:36)
[2019-04-11] MEDS: Lisinopril 10 MG TAB PO SCH (09:37)
[2019-04-11] MEDS: Ferrous Sulfate 325 MG TAB PO SCH ×2 (09:37→17:14)
[2019-04-11] MEDS: Gabapentin 100 MG CAP PO SCH ×3 (09:37→20:52)
[2019-04-11] MEDS: Aspirin 81 mg Enteric Coated Tablet PO SCH ×2 (09:37→20:52)
[2019-04-11] MEDS: Multivitamin W/ Minerals 1 TAB PO SCH (09:38)
[2019-04-11] MEDS: Ascorbic Acid 500 mg Chewable Tablet PO SCH (09:38)
[2019-04-11] MEDS: Pioglitazone HCl 15 MG TAB PO SCH (09:38)
[2019-04-11] MEDS: CRANBERRY 900 MG PO SCH (11:10)
[2019-04-11] MEDS ORDERED: Hydrochlorothiazide 25 MG TAB PO SCH (13:30)
[2019-04-11] MEDS: Amitriptyline HCl 25 MG TAB PO SCH (20:52)
[2019-04-11] MEDS: Rosuvastatin 10 MG TAB PO SCH (20:53)
[2019-04-11] MEDS: Acetaminophen 500 MG TAB PO PRN (20:53)
[2019-04-11] MEDS: Oxybutynin ER 5 MG TAB PO SCH (20:53)
[2019-04-12] MEDS: Lisinopril 10 MG TAB PO SCH (09:30)
[2019-04-12] MEDS: CRANBERRY 900 MG PO SCH (09:30)
[2019-04-12] MEDS: Ascorbic Acid 500 mg Chewable Tablet PO SCH (09:30)
[2019-04-12] MEDS: Multivitamin W/ Minerals 1 TAB PO SCH (09:30)
[2019-04-12] MEDS: Polyethylene Glycol 3350 17 GM Packet PO SCH (09:31)
[2019-04-12] MEDS: Aspirin 81 mg Enteric Coated Tablet PO SCH ×2 (09:31→21:00)
[2019-04-12] MEDS: Gabapentin 100 MG CAP PO SCH ×3 (09:31→21:00)
[2019-04-12] MEDS: Ferrous Sulfate 325 MG TAB PO SCH ×2 (09:31→17:14)
[2019-04-12] MEDS: Floranex Packet PO SCH (09:31)
[2019-04-12] MEDS: Pioglitazone HCl 15 MG TAB PO SCH (09:31)
[2019-04-12] MEDS: Hydrochlorothiazide 25 MG TAB PO SCH (09:31)
[2019-04-12] MEDS: Rosuvastatin 10 MG TAB PO SCH (21:00)
[2019-04-12] MEDS: Oxybutynin ER 5 MG TAB PO SCH (21:00)
[2019-04-12] MEDS: Amitriptyline HCl 25 MG TAB PO SCH (21:00)
[2019-04-12] MEDS: Acetaminophen 500 MG TAB PO PRN (21:01)
[2019-04-13] MEDS: Acetaminophen 500 MG TAB PO PRN ×2 (06:23→20:25)
[2019-04-13] MEDS: Aspirin 81 mg Enteric Coated Tablet PO SCH ×2 (08:26→20:27)
[2019-04-13] MEDS: Pioglitazone HCl 15 MG TAB PO SCH (08:26)
[2019-04-13] MEDS: Lisinopril 10 MG TAB PO SCH (08:26)
[2019-04-13] MEDS: Floranex Packet PO SCH (08:26)
[2019-04-13] MEDS: Ascorbic Acid 500 mg Chewable Tablet PO SCH (08:27)
[2019-04-13] MEDS: CRANBERRY 900 MG PO SCH (08:27)
[2019-04-13] MEDS: Polyethylene Glycol 3350 17 GM Packet PO SCH (08:27)
[2019-04-13] MEDS: Ferrous Sulfate 325 MG TAB PO SCH ×2 (08:27→16:53)
[2019-04-13] MEDS: Gabapentin 100 MG CAP PO SCH ×3 (08:27→20:26)
[2019-04-13] MEDS: Hydrochlorothiazide 25 MG TAB PO SCH (08:27)
[2019-04-13] MEDS: Multivitamin W/ Minerals 1 TAB PO SCH (08:27)
[2019-04-13] MEDS: Oxybutynin ER 5 MG TAB PO SCH (20:26)
[2019-04-13] MEDS: Rosuvastatin 10 MG TAB PO SCH (20:26)
[2019-04-13] MEDS: Amitriptyline HCl 25 MG TAB PO SCH (20:27)
[2019-04-14] MEDS: traMADol HCl 50 MG TAB PO PRN (06:54)
[2019-04-14] MEDS: Floranex Packet PO SCH (08:28)
[2019-04-14] MEDS: Polyethylene Glycol 3350 17 GM Packet PO SCH (08:28)
[2019-04-14] MEDS: CRANBERRY 900 MG PO SCH (08:28)
[2019-04-14] MEDS: Lisinopril 10 MG TAB PO SCH (08:29)
[2019-04-14] MEDS: Ferrous Sulfate 325 MG TAB PO SCH ×2 (08:30→17:04)
[2019-04-14] MEDS: Pioglitazone HCl 15 MG TAB PO SCH (08:30)
[2019-04-14] MEDS: Multivitamin W/ Minerals 1 TAB PO SCH (08:30)
[2019-04-14] MEDS: Ascorbic Acid 500 mg Chewable Tablet PO SCH (08:30)
[2019-04-14] MEDS: Hydrochlorothiazide 25 MG TAB PO SCH (08:30)
[2019-04-14] MEDS: Aspirin 81 mg Enteric Coated Tablet PO SCH ×2 (08:30→20:55)
[2019-04-14] MEDS: Gabapentin 100 MG CAP PO SCH ×3 (08:30→20:55)
[2019-04-14] MEDS: Amitriptyline HCl 25 MG TAB PO SCH (20:55)
[2019-04-14] MEDS: Oxybutynin ER 5 MG TAB PO SCH (20:56)
[2019-04-14] MEDS: Acetaminophen 500 MG TAB PO PRN (20:56)
[2019-04-14] MEDS: Rosuvastatin 10 MG TAB PO SCH (20:57)
[2019-04-15] MEDS: Floranex Packet PO SCH (08:05)
[2019-04-15] MEDS: CRANBERRY 900 MG PO SCH (08:06)
[2019-04-15] MEDS: Polyethylene Glycol 3350 17 GM Packet PO SCH (08:06)
[2019-04-15] MEDS: Multivitamin W/ Minerals 1 TAB PO SCH (08:07)
[2019-04-15] MEDS: Hydrochlorothiazide 25 MG TAB PO SCH (08:07)
[2019-04-15] MEDS: Pioglitazone HCl 15 MG TAB PO SCH (08:07)
[2019-04-15] MEDS: Lisinopril 10 MG TAB PO SCH (08:07)
[2019-04-15] MEDS: Ascorbic Acid 500 mg Chewable Tablet PO SCH (08:07)
[2019-04-15] MEDS: Gabapentin 100 MG CAP PO SCH ×3 (08:07→20:45)
[2019-04-15] MEDS: Ferrous Sulfate 325 MG TAB PO SCH ×2 (08:07→16:50)
[2019-04-15] MEDS: Aspirin 81 mg Enteric Coated Tablet PO SCH ×2 (08:07→20:48)
[2019-04-15] MEDS: Acetaminophen 500 MG TAB PO PRN ×2 (08:10→20:45)
[2019-04-15] MEDS ORDERED: FLU VACC TS2019-20(65YR UP)/PF 180 MCG/0.5 ML SYRINGE IM ONE (15:31)
[2019-04-15] MEDS: Oxybutynin ER 5 MG TAB PO SCH (20:45)
[2019-04-15] MEDS: Rosuvastatin 10 MG TAB PO SCH (20:46)
[2019-04-15] MEDS: Amitriptyline HCl 25 MG TAB PO SCH (20:46)
[2019-04-16] MEDS: CRANBERRY 900 MG PO SCH (08:16)
[2019-04-16] MEDS: Floranex Packet PO SCH (08:16)
[2019-04-16] MEDS: Hydrochlorothiazide 25 MG TAB PO SCH (08:17)
[2019-04-16] MEDS: Polyethylene Glycol 3350 17 GM Packet PO SCH (08:17)
[2019-04-16] MEDS: Pioglitazone HCl 15 MG TAB PO SCH (08:17)
[2019-04-16] MEDS: Lisinopril 10 MG TAB PO SCH (08:17)
[2019-04-16] MEDS: Aspirin 81 mg Enteric Coated Tablet PO SCH ×2 (08:17→20:12)
[2019-04-16] MEDS: Ferrous Sulfate 325 MG TAB PO SCH ×2 (08:17→15:48)
[2019-04-16] MEDS: Gabapentin 100 MG CAP PO SCH ×3 (08:17→20:13)
[2019-04-16] MEDS: Ascorbic Acid 500 mg Chewable Tablet PO SCH (08:17)
[2019-04-16] MEDS: Multivitamin W/ Minerals 1 TAB PO SCH (08:17)
[2019-04-16] MEDS: Acetaminophen 500 MG TAB PO PRN ×2 (08:18→20:15)
[2019-04-16] MEDS ORDERED: FLU VACC TS2019-20(65YR UP)/PF 180 MCG/0.5 ML SYRINGE IM ONE (09:00)
[2019-04-16 09:09] VITALS: BMI 40.1
[2019-04-16] MEDS: Amitriptyline HCl 25 MG TAB PO SCH (20:12)
[2019-04-16] MEDS: Rosuvastatin 10 MG TAB PO SCH (20:13)
[2019-04-16] MEDS: Oxybutynin ER 5 MG TAB PO SCH (20:13)
[2019-04-17] MEDS: traMADol HCl 50 MG TAB PO PRN (06:01)
[2019-04-17] MEDS: CRANBERRY 900 MG PO SCH (08:36)
[2019-04-17] MEDS: Gabapentin 100 MG CAP PO SCH ×3 (08:36→21:14)
[2019-04-17] MEDS: Pioglitazone HCl 15 MG TAB PO SCH (08:37)
[2019-04-17] MEDS: Ferrous Sulfate 325 MG TAB PO SCH ×2 (08:37→17:08)
[2019-04-17] MEDS: Multivitamin W/ Minerals 1 TAB PO SCH (08:37)
[2019-04-17] MEDS: Aspirin 81 mg Enteric Coated Tablet PO SCH ×2 (08:37→21:14)
[2019-04-17] MEDS: Hydrochlorothiazide 25 MG TAB PO SCH (08:37)
[2019-04-17] MEDS: Ascorbic Acid 500 mg Chewable Tablet PO SCH (08:37)
[2019-04-17] MEDS: Lisinopril 10 MG TAB PO SCH (08:37)
[2019-04-17] MEDS: Floranex Packet PO SCH (08:37)
[2019-04-17] MEDS: Polyethylene Glycol 3350 17 GM Packet PO SCH (08:38)
[2019-04-17] MEDS: Rosuvastatin 10 MG TAB PO SCH (21:14)
[2019-04-17] MEDS: Amitriptyline HCl 25 MG TAB PO SCH (21:14)
[2019-04-17] MEDS: Oxybutynin ER 5 MG TAB PO SCH (21:14)
[2019-04-17] MEDS: Acetaminophen 500 MG TAB PO PRN (21:15)
[2019-04-18] MEDS: traMADol HCl 50 MG TAB PO PRN (05:40)
[2019-04-18 06:40] VITALS: BP 139/74; TEMP 97.6
[2019-04-18] MEDS: Pioglitazone HCl 15 MG TAB PO SCH (09:21)
[2019-04-18] MEDS: Floranex Packet PO SCH (09:22)
[2019-04-18] MEDS: Polyethylene Glycol 3350 17 GM Packet PO SCH (09:22)
[2019-04-18] MEDS: Hydrochlorothiazide 25 MG TAB PO SCH (09:22)
[2019-04-18] MEDS: Lisinopril 10 MG TAB PO SCH (09:23)
[2019-04-18] MEDS: Ferrous Sulfate 325 MG TAB PO SCH (09:24)
[2019-04-18] MEDS: Gabapentin 100 MG CAP PO SCH (09:24)
[2019-04-18] MEDS: Multivitamin W/ Minerals 1 TAB PO SCH (09:24)
[2019-04-18] MEDS: Aspirin 81 mg Enteric Coated Tablet PO SCH (09:24)
[2019-04-18] MEDS: Ascorbic Acid 500 mg Chewable Tablet PO SCH (09:24)
[2019-04-18] MEDS: CRANBERRY 900 MG PO SCH (09:25)
[2019-04-18] MEDS: Acetaminophen 500 MG TAB PO PRN (12:35)
== END 2019-04-18 14:45 | disposition home or self-care (01) | DRG 560 ==
LOC: MADMS 20:30
PROVIDERS: ADMIT Family Medicine; ATTEND Family Medicine
DX: S72.142D Displaced intertrochanteric fracture of left femur, subsequent encounter for closed fracture with routine healing (principal); N17.9 Acute kidney failure, unspecified; N39.0 Urinary tract infection, site not specified; Z68.41 Body mass index [BMI] 40.0-44.9, adult; N18.4 Chronic kidney disease, stage 4 (severe); R53.1 Weakness; I25.10 Atherosclerotic heart disease of native coronary artery without angina pectoris; M19.91 Primary osteoarthritis, unspecified site; E78.5 Hyperlipidemia, unspecified; E66.9 Obesity, unspecified; R53.81 Other malaise; E11.22 Type 2 diabetes mellitus with diabetic chronic kidney disease; E86.0 Dehydration; E83.42 Hypomagnesemia; W06.XXXD Fall from bed, subsequent encounter; Z95.5 Presence of coronary angioplasty implant and graft; Z90.710 Acquired absence of both cervix and uterus; Z79.82 Long term (current) use of aspirin; Z79.899 Other long term (current) drug therapy; T79.6XXD Traumatic ischemia of muscle, subsequent encounter; R26.81 Unsteadiness on feet; I12.9 Hypertensive chronic kidney disease with stage 1 through stage 4 chronic kidney disease, or unspecified chronic kidney disease
CPT/HCPCS: 36415; 36416; 80048; 80053; 81001; 82728; 83540; 85014; 85018; 85025; 85049; 87086; 90471; 90662; G0008; J7050

== ENCOUNTER 2019-04-19 20:21 | Emergency (ER) | payer MEDICARE, OTHER ==
[2019-04-19 21:19] LABS: Bilirubin Negative (Negative); Blood, Urine Large (Negative); Clarity Cloudy (Clear); Glucose, Urine (Dipstick) Negative (Negative); Leukocyte Moderate (Negative); Nitrite Negative (Negative); Protein, Urine (Dipstick) > or equal to 300 mg/dL (Neg-Trace); Urobilinogen 0.2 mg/dL (Less than 2)
[2019-04-19 21:32] LABS: Bacteria/HPF 1+ HPF (None Seen); Mucous/LPF Rare LPF (<2+); RBC/HPF 21-50 HPF (0-3); WBC/HPF Greater Than 50 HPF (0-3)
== END 2019-04-19 21:58 | disposition critical access hospital (66) ==
LOC: MADERS 20:21
DX: R53.1 Weakness (principal); N39.0 Urinary tract infection, site not specified; I25.10 Atherosclerotic heart disease of native coronary artery without angina pectoris; E11.9 Type 2 diabetes mellitus without complications; I10 Essential (primary) hypertension; Z79.899 Other long term (current) drug therapy; Z95.5 Presence of coronary angioplasty implant and graft; Z79.82 Long term (current) use of aspirin
CPT/HCPCS: 81003; 81015; 87086

== ENCOUNTER 2019-04-19 21:16 | Inpatient (IN) | payer MEDICARE, OTHER ==
[2019-04-19] MEDS ORDERED: Nystatin Powder 15 GM BOT ONE (22:15)
[2019-04-19 22:23] VITALS: BMI 39.2
[2019-04-19] MEDS ORDERED: HumaLOG 300 UNITS/3 ML VIAL SC PRN (23:03)
[2019-04-19] MEDS ORDERED: Dextrose 5% in Water 1,000 ML IV PRN (23:03)
[2019-04-19] MEDS ORDERED: Dextrose 50% Abboject 50 ML SYRINGE IVP PRN (23:03)
[2019-04-19] MEDS ORDERED: hydrALAZINE 10 MG TAB PO PRN (23:04)
[2019-04-19] MEDS ORDERED: Ondansetron ODT 4 MG TAB PO PRN (23:04)
[2019-04-19] MEDS ORDERED: Phenazopyridine HCl 97.5 MG TABLET PO PRN (23:05)
[2019-04-19] MEDS ORDERED: traMADol HCl 50 MG TAB PO PRN (23:12)
[2019-04-19] MEDS ORDERED: Senokot S 8.6-50 MG TAB PO PRN (23:12)
[2019-04-20] MEDS: traMADol HCl 50 MG TAB PO PRN (02:56)
[2019-04-20] MEDS: Floranex Packet PO SCH (08:38)
[2019-04-20] MEDS: Gabapentin 100 MG CAP PO SCH ×3 (08:38→20:29)
[2019-04-20] MEDS: Polyethylene Glycol 3350 17 GM Packet PO SCH (08:38)
[2019-04-20] MEDS: Aspirin 81 mg Enteric Coated Tablet PO SCH ×2 (08:39→20:29)
[2019-04-20] MEDS: Pioglitazone HCl 15 MG TAB PO SCH (08:39)
[2019-04-20] MEDS: Multivitamin W/ Minerals 1 TAB PO SCH (08:39)
[2019-04-20] MEDS: Ascorbic Acid 500 mg Chewable Tablet PO SCH (08:39)
[2019-04-20] MEDS: Carvedilol 12.5 MG TAB PO SCH ×2 (08:39→20:29)
[2019-04-20] MEDS: Ferrous Sulfate 325 MG TAB PO SCH ×2 (08:39→17:07)
[2019-04-20] MEDS: Nystatin Powder 15 GM BOT TOP SCH ×2 (08:40→20:30)
[2019-04-20] MEDS ORDERED: CRANBERRY 450 MG PO SCH (09:00)
--- NOTE | 2019-04-20 13:15 | HP ---
PRIMARY CARE PHYSICIAN: Rosie Alonzo DO REASON FOR ADMISSION: For skilled rehabilitation and [facility] due to left femur fracture, status post TFNA, and acute UTI. HISTORY OF PRESENT ILLNESS: Ms. Parada is a very pleasant 69-year-old female, who was discharged from skilled rehabilitation on April 18, 2019. The patient had been in extended care swing rehab from March 02, 2019 until April 18 when she was discharged with family to assist at home. The patient initially had a fall on February 25 and she sustained a left intertrochanteric hip fracture that was repaired. The patient underwent a TFNA of the left femur by Dr. Gutierres on February 26, 2019. The patient also was noted then to have a urinary tract infection, she was started on antibiotics and this resolved. The patient was in skilled rehab and tolerated occupational therapy and physical therapy nicely. April 18, prior to discharge, she was able to ambulate 250 feet with a rolling walker with minimum fatigue, but she was able to do it. The patient states upon getting home that evening, she progressively became weak and could not even transfer from the wheelchair to bedside commode. She denies any fall. She denies any nausea, vomiting, chest pain, palpitations, or dizziness. The patient just states she was very weak and could not ambulate or transfer. Family members decided to bring the patient to the emergency room due to this. In the emergency room, she had a workup and was noted to have a urinary tract infection. The patient was started on oral Levaquin 500 and urine sent for culture. The patient was subsequently admitted back to swing bed to continue rehabilitation back prior to discharge back to home. Upon evaluation of the patient today, she still complains of severe weakness. She thinks this might be due to recent urinary tract infection as her last fall was triggered by this also. The patient denies any pain to the surgical site. She denies any chest pain. Denies any nausea, vomiting. She denies any acute illness. PAST MEDICAL HISTORY: Hypertension, diabetes type 2, frequent urinary tract infection, coronary artery disease, arthritis, psoriasis, overactive bladder, hyperlipidemia, and obesity. PAST SURGICAL HISTORY: Cardiac stents placed in 2006, hysterectomy, hernia repair, and left hip repair. SOCIAL HISTORY: The patient lives at home with her son. She is retired. She denies smoking, alcohol use, or illicit drug use. MEDICATIONS: 1. Amitriptyline 50 at bedtime. 2. Vitamin C 500 daily. 3. Aspirin 81 b.i.d. 4. Coreg 12.5 b.i.d. 5. Vitamin D3 of 1000 daily. 6. Ferrous sulfate 325 b.i.d. 7. Neurontin 100 t.i.d. 8. Hydralazine 10 q.6 p.r.n. hypertension. 9. Multivitamin 1 tablet daily. 10. Oxybutynin chloride 10 mg at bedtime. 12. Cranberry 900 mg daily. 13. Actos 15 mg daily. 14. Crestor 20 at bedtime. 15. Tramadol 100 mg p.o. q.6 p.r.n. pain. ALLERGIES: NO KNOWN DRUG ALLERGIES. REVIEW OF SYSTEMS: GENERAL: Denies fever, chills. Complains of generalized weakness, fatigue. HEENT: No vision changes, hearing changes, or upper respiratory symptoms. RESPIRATORY: Denies cough, chest pain, shortness of breath. CARDIOVASCULAR: Denies chest pain, palpitations, dizziness, orthopnea, or dyspnea. GI: Denies nausea, vomiting, abdominal pain, diarrhea, or constipation. GENITOURINARY: Reports recurrent history of UTIs, but currently denies urinary frequency or urgency or gross hematuria. MUSCULOSKELETAL: Denies any joint pain. Complains of occasional left hip pain , but nothing acutely severe. NEUROLOGIC: Complains of generalized weakness. Denies numbness, loss of consciousness, seizures, tics, or tremors. PSYCHIATRIC: Reports some depression and insomnia. PHYSICAL EXAMINATION: VITAL SIGNS: Temperature 99.8, respirations 18, pulse 97, O2 saturation 98% on room air, and blood pressure 158/70. GENERAL: The patient is alert, awake, and oriented x3, lying in bed, in no apparent distress. Obese. HEENT: Normocephalic, atraumatic. PERRL, intact EOM. Anicteric sclerae. Oral mucous membrane is moist. NECK: Supple. No JVD. No LAD. No bruit. CARDIAC: Regular rate and rhythm. Normal S1 and S2. No murmurs. ABDOMEN: Positive bowel sounds. Soft, obese, nontender, nondistended. No guarding. No rebound. No CVA tenderness bilaterally. EXTREMITIES: No erythema or edema. Negative Homans sign. Pulses +2 bilaterally. NEUROLOGIC: Gait unsteady. Cranial nerves 2 through 12 grossly intact. SKIN: Postoperative site in the left lateral thigh, well healed incision. No erythema. No signs of infection. LABORATORY DATA: Urine, large blood, moderate leukocyte, greater than 50 wbc's , +1 bacteria. ASSESSMENT: 1. Physical deconditioning. 2. Generalized weakness. 3. Urinary tract infection with a history of recurrent urinary tract infections. 4. Status post left intertrochanteric hip fracture repair in February 26, [address] Gutierres. 5. Chronic kidney disease, stage 4. 6. Unsteady gait. 7. Obesity. 8. Diabetes type 2. 9. Hypertension. PLAN: The patient is a 69-year-old female, who has been admitted to [facility] for skilled rehabilitation. We will consult PT for gait strengthening. We will consult OT to help with activities of daily living prior to discharge to home. We will place the patient on a diabetic diet. We will resume all home medications. We will place the patient on DVT prophylaxis with aspirin b.i.d. and SINDHU hose and GI prophylaxis with a PPI. The patient is to follow up as an outpatient with Dr. Gutierres. ESTIMATED LENGTH OF STAY: 2 to 3 weeks. CODE STATUS: The patient is a full code. Job ID: [id number] [facility]
[2019-04-20] MEDS: Acetaminophen 500 MG TAB PO PRN (20:30)
[2019-04-20] MEDS ORDERED: Rosuvastatin 10 MG TAB PO SCH (21:00)
[2019-04-20] MEDS ORDERED: Amitriptyline HCl 25 MG TAB PO SCH (21:00)
[2019-04-20] MEDS ORDERED: Oxybutynin ER 5 MG TAB PO SCH (21:00)
[2019-04-20] MEDS ORDERED: Prevnar 13-Val Conj/PF 0.5 ML SYRINGE IM ONE (21:00)
[2019-04-21] MEDS: Acetaminophen 500 MG TAB PO PRN (05:39)
[2019-04-21 07:06] VITALS: BP 105/52; TEMP 98.5
[2019-04-21] MEDS: traMADol HCl 50 MG TAB PO PRN (07:59)
[2019-04-21] MEDS: Floranex Packet PO SCH (08:01)
[2019-04-21] MEDS: Carvedilol 12.5 MG TAB PO SCH (08:01)
[2019-04-21] MEDS: Multivitamin W/ Minerals 1 TAB PO SCH (08:01)
[2019-04-21] MEDS: Ferrous Sulfate 325 MG TAB PO SCH (08:01)
[2019-04-21] MEDS: Gabapentin 100 MG CAP PO SCH (08:01)
[2019-04-21] MEDS: Polyethylene Glycol 3350 17 GM Packet PO SCH (08:01)
[2019-04-21] MEDS: Ascorbic Acid 500 mg Chewable Tablet PO SCH (08:01)
[2019-04-21] MEDS: Aspirin 81 mg Enteric Coated Tablet PO SCH (08:01)
[2019-04-21] MEDS: Pioglitazone HCl 15 MG TAB PO SCH (08:01)
[2019-04-21] MEDS: Nystatin Powder 15 GM BOT TOP SCH (08:02)
[2019-04-21 12:36] LABS: ALT (SGPT) 33 U/L (8-55); AST (SGOT) 38 U/L (5-34); Albumin 3.2 g/dL (3.4-4.8); Alkaline Phosphatase 200 U/L (40-110); Anion Gap 17 mmol/L (10-20); BUN (Urea Nitrogen) 78 mg/dL (9.8-20.1); Bilirubin, Total 0.2 mg/dL (0.2-1.2); Calc. Creatinine Clearance 21 mL/min (70-130); Calcium 9.3 mg/dL (7.8-10.44); Carbon Dioxide 21 mmol/L (23-31); Chloride 101 mmol/L (98-107); Estimated GFR-MDRD 10; Globulin 3.8 g/dL (2.4-3.5); Glucose 91 mg/dL (80-115); Potassium 5.5 mmol/L (3.5-5.1); Sodium 133 mmol/L (136-145)
[2019-04-21 12:53] LABS: Thyroid Stimulating Hormone 4.3249 uIU/mL (0.35-4.94)
[2019-04-21 13:03] LABS: Anisocytosis SLIGHT = 6-15 cells (100X) (0-5/hpf); Band 1 % (5-11); Lymphocytes 14 % (21-51); MDiff Complete? YES; Mean Corpuscular HGB CONC 31.6 g/dL (32.0-36.0); Mean Corpuscular Hemoglobin 29.5 pg (27.0-31.0); Mean Corpuscular Volume 93.3 fL (78.0-98.0); Mean Platelet Volume 5.4 fL (7.4-10.4); Monocytes 4 % (0-10); Neutrophil 81 % (42-75); Platelet Count 288 thou/uL (130-400); Platelet Morphology Comment Appears Adequate; RBC Distribution Width 13.7 % (11.5-14.5); Red Blood Cell (RBC) Count 3.05 mill/uL (4.20-5.40); Rouleaux Formation SLIGHT = 1-5 cells (100X) (None Seen); White Blood Cell (WBC) Count 9.8 thou/uL (4.8-10.8)
[2019-04-21] MEDS ORDERED: Sodium Chloride 0.9% 1,000 ML IV SCH (14:45)
[2019-04-21 18:00] LABS: Free T4 (Free Thyroxine) 0.81 ng/dL (0.70-1.48)
--- NOTE | 2019-04-21 23:12 | DIS ---
DATE OF ADMISSION: 04/19/2019 DATE OF DISCHARGE: 04/21/2019 DISCHARGE DIAGNOSES: 1. Renal failure. 2. Generalized weakness. 3. Gait instability. SECONDARY DIAGNOSES: 1. Urinary tract infection with a history of recurrent urinary tract infections. 2. Status post left intertrochanteric hip fracture status post repair, January by Dr. Gutierres. 3. Diabetes type 2. 4. Hypertension. DISCHARGE DISPOSITION: [facility]. BRIEF HOSPITAL COURSE: Ms. Janice Parada is a 69-year-old female, who was initially admitted to [facility] in [place], March 02, 2019 and discharged on April 18. The patient had presented post acute rehabilitation status post left femur fracture, status post TFNA. The patient was able to participate in physical therapy and progressively improved. She was discharged home on April 18. Upon getting home, the patient states she progressively became weak and initially prior to discharge was able to ambulate 250 feet with a rolling walker, but by the evening of April 18, she states she needed assistance to be transferred from a wheelchair to the bed and to the bathroom. She complains of severe weakness. The patient was subsequently readmitted back to [facility], April 19, 2019. Upon evaluation on the , she was noted to still be severely weak. She was able to participate in physical therapy, but very minimally. She denies any chest pain, shortness of breath, palpitations, or dizziness. She just complains of severe weakness. The patient was noted to have a UTI and was started on antibiotic with Cipro, but on the due to weakness, she had blood work drawn and she was noted to have a hemoglobin of 9, hematocrit 28.5, which have been stable for her. Potassium was 5.5, sodium 133, BUN was 78 and creatinine 4.33. The patient states she has not seen a busher helper in about a year and a half. She sees Dr. Nation and the patient's last creatinine prior to today's 4.3 was March 17 creatinine, then was 1.65. The decision was made to transfer the patient to [facility] for higher level of care, so she could be evaluated by busher helper. The patient was started on normal saline IV at 100 mL/hours and case was endorsed to hospitalist, Dr. Jagdeep Willson. I personally spoke to busher helper, Dr. Owen, who also recommended that she be transferred over and he would evaluate her upon admission. DISCHARGE MEDICATIONS: 1. Amitriptyline 50 at bedtime. 2. Vitamin C 500 daily. 3. Ferrous sulfate 325 daily. 4. Coreg 12.5 b.i.d. 5. Aspirin 81 mg b.i.d. 6. Actos 15 daily. 7. Oxybutynin 10 at bedtime. 8. Hydralazine 10 q.6 p.r.n. hypertension. 9. Neurontin 100 t.i.d. 10. Tramadol 100 q.6 p.r.n. 11. Crestor 20 at bedtime. 12. Cranberry 900 daily. 13. Vitamin D3 1000 daily. Job ID: [id number] MTDD
[2019-05-07] MEDS ORDERED: IXEKIZUMAB 80 MG SC SCH ×2 (09:00)
== END 2019-04-21 14:55 | disposition short-term general hospital (02) | DRG 948 ==
LOC: MADMS 21:16
PROVIDERS: ADMIT Family Medicine; ATTEND Family Medicine
DX: R53.1 Weakness (principal); N39.0 Urinary tract infection, site not specified; I10 Essential (primary) hypertension; E11.9 Type 2 diabetes mellitus without complications; I25.10 Atherosclerotic heart disease of native coronary artery without angina pectoris; M19.91 Primary osteoarthritis, unspecified site; E78.5 Hyperlipidemia, unspecified; R53.81 Other malaise; E66.9 Obesity, unspecified; Z95.5 Presence of coronary angioplasty implant and graft; Z90.710 Acquired absence of both cervix and uterus; Z79.890 Hormone replacement therapy; Z79.82 Long term (current) use of aspirin; Z79.899 Other long term (current) drug therapy; S72.142D Displaced intertrochanteric fracture of left femur, subsequent encounter for closed fracture with routine healing; W17.89XD Other fall from one level to another, subsequent encounter; Z68.39 Body mass index [BMI] 39.0-39.9, adult; N19 Unspecified kidney failure
CPT/HCPCS: 36416; 51701; 80053; 81003; 81015; 84439; 84443; 85007; 85027; 87077; 87086; 87186; 90471; 90670; 36415-59; A4353; G0009

== ENCOUNTER 2019-04-24 21:09 | Inpatient (IN) | payer MEDICARE, OTHER ==
[2019-04-25] MEDS ORDERED: Senokot S 8.6-50 MG TAB PO PRN (01:11)
[2019-04-25] MEDS ORDERED: Ondansetron ODT 4 MG TAB PO PRN (01:11)
[2019-04-25] MEDS ORDERED: traMADol HCl 50 MG TAB PO PRN (01:11)
[2019-04-25 01:34] LABS: Bilirubin Negative (Negative); Blood, Urine Large (Negative); Clarity Cloudy (Clear); Glucose, Urine (Dipstick) Negative (Negative); Leukocyte Trace (Negative); Nitrite Negative (Negative); Protein, Urine (Dipstick) 100 mg/dL (Neg-Trace); Urobilinogen 0.2 mg/dL (Less than 2)
[2019-04-25 01:43] LABS: RBC/HPF Greater than 50 HPF (0-3)
[2019-04-25 01:44] LABS: Bacteria/HPF Rare-Few HPF (None Seen); Squamous Epithelial None Seen HPF (0-3)
[2019-04-25 05:58] LABS: Anion Gap 13 mmol/L (10-20); BUN (Urea Nitrogen) 52 mg/dL (9.8-20.1); Calc. Creatinine Clearance 46 mL/min (70-130); Calcium 9.3 mg/dL (7.8-10.44); Carbon Dioxide 21 mmol/L (23-31); Chloride 113 mmol/L (98-107); Estimated GFR-MDRD 24; Glucose 100 mg/dL (80-115); Potassium 5.4 mmol/L (3.5-5.1); Sodium 142 mmol/L (136-145)
[2019-04-25] MEDS: Floranex Packet PO SCH (09:12)
[2019-04-25] MEDS: Multivitamin W/ Minerals 1 TAB PO SCH (09:13)
[2019-04-25] MEDS: Polyethylene Glycol 3350 17 GM Packet PO SCH (09:13)
[2019-04-25] MEDS: Pioglitazone HCl 15 MG TAB PO SCH (09:13)
[2019-04-25] MEDS: Famotidine 20 MG TAB PO SCH ×2 (09:13→22:01)
[2019-04-25] MEDS: Fish Oil 1,000 MG CAP PO SCH (09:13)
[2019-04-25] MEDS: Ascorbic Acid 500 mg Chewable Tablet PO SCH (09:13)
[2019-04-25] MEDS: Gabapentin 100 MG CAP PO SCH ×3 (09:13→22:01)
[2019-04-25] MEDS: traMADol HCl 50 MG TAB PO PRN ×2 (09:14→22:08)
[2019-04-25] MEDS: Aspirin 81 mg Enteric Coated Tablet PO SCH ×2 (09:14→22:01)
[2019-04-25] MEDS: Carvedilol 12.5 MG TAB PO SCH ×2 (09:14→22:01)
[2019-04-25] MEDS: Ferrous Sulfate 325 MG TAB PO SCH ×2 (09:14→17:33)
[2019-04-25] MEDS: CRANBERRY 450 MG PO SCH (09:16)
[2019-04-25] MEDS: Nystatin Powder 15 GM BOT TOP SCH ×2 (09:16→22:18)
[2019-04-25] MEDS: Nystatin 500,000 UNITS/5 ML UDCUP SSW SCH ×2 (17:33→22:00)
[2019-04-25] MEDS: Acetaminophen 500 MG TAB PO PRN (18:04)
[2019-04-25] MEDS: Oxybutynin ER 5 MG TAB PO SCH (22:00)
[2019-04-25] MEDS: Rosuvastatin 10 MG TAB PO SCH (22:00)
[2019-04-25] MEDS: Nitrofurantoin Monohyd/M-Cryst 100 MG CAP PO SCH (22:00)
[2019-04-25] MEDS: Amitriptyline HCl 25 MG TAB PO SCH (22:01)
--- NOTE | 2019-04-25 22:16 | HP ---
PRIMARY CARE PHYSICIAN: Ana Luna MD REASON FOR ADMISSION: For skilled rehabilitation at [facility] status post physical deconditioning due to acute kidney injury, dehydration, recent left femur fracture status post TFNA and acute recurrent cystitis with hematuria. HISTORY OF PRESENT ILLNESS: Ms. Parada is a 69-year-old female, who was initially admitted to [facility] on March 02, 2019, and was discharge on April 18, 2019, status post a left femur fracture, which she got repaired. The patient was able to participate in physical therapy and improved, was discharged home on April 18, the patient got home and progressively worsened, and returned to the emergency room on the less than 24hrs after discharge. She was subsequently readmitted on April 19 to continue skilled rehabilitation due to a sudden decline in her physical activity. During hospitalization, the patient did not progress by the . She was still noted to be very weak and stat labs were done, and the patient was noted to have a creatinine of 4.3, baseline is normally in the 1.6 range. The patient was subsequently transferred to [facility] in [place], where she was admitted and seen by remedy developer, Dr. Owen. The patient also had a urinary tract infection and the recommendation was for her to see urologist due to recurrent urinary tract infections. The patient was hydrated with IV fluids and acute kidney injury slowly improved. By day of discharge, creatinine was back at 2.51 with a BUN of 50. The patient was subsequently discharged back to [facility] to continue the physical therapy prior to discharge back to her home. Upon evaluation of the patient today, she complains that she still feels very weak. She notes urine is now very bloody. She denies any chest pain, shortness of breath, palpitation or dizziness. She is trying to increase oral hydration. She denies abdominal pain, nausea or vomiting. The patient is excited to restart physical therapy, but she just notes she is very weak. PAST MEDICAL HISTORY: Hypertension, diabetes type 2, frequent urinary tract infection, coronary artery disease, arthritis, psoriasis, overactive bladder, obesity, and hyperlipidemia. PAST SURGICAL HISTORY: Cardiac stents in 2017, hysterectomy, hernia repair, and left femur repair. SOCIAL HISTORY: The patient lives at home with her son. She is retired. She denies smoking, alcohol or illicit drug use. MEDICATIONS: 1. Amitriptyline 50 at bedtime. 2. Vitamin C 500 daily. 3. Aspirin 81 b.i.d. 4. Coreg 12.5 b.i.d. 5. Vitamin D3, 1000 daily. 6. Tramadol 100 q.6 p.r.n. 7. Crestor 20 at bedtime. 8. Actos 15 daily. 9. Cranberry 900 daily. 10. Oxybutynin 10 at bedtime. 11. Multivitamin one tab daily. 12. Hydralazine 10 q.6 p.r.n. 13. Neurontin 100 t.i.d. 14. Ferrous sulfate 325 b.i.d. ALLERGIES: NO KNOWN DRUG ALLERGIES. REVIEW OF SYSTEMS: GENERAL: The patient complains of generalized weakness and fatigue. HEENT: No vision changes, hearing changes or upper respiratory symptoms. RESPIRATORY: Denies cough, chest pain or shortness of breath. CARDIOVASCULAR: Denies chest pain, palpitations, dizziness, orthopnea or dyspnea. GI: Denies nausea, vomiting, abdominal pain or diarrhea. GENITOURINARY: The patient complains of recurrent UTIs, complains of gross hematuria. MUSCULOSKELETAL: Denies any joint pain. NEUROLOGICAL: The patient complains of generalized weakness. Denies numbness, loss of consciousness, seizures or tics. PSYCHIATRIC: Reports some depression and insomnia. PHYSICAL EXAMINATION: VITAL SIGNS: Temperature 99.5, pulse 76, respirations 20, O2 sat 99% on room air, and blood pressure 154/73. GENERAL: The patient is alert, awake and oriented x3, lying comfortably in bed , in no apparent distress, obese. HEENT: Normocephalic and atraumatic. Oral mucous membranes moist. PERRL. Intact extraocular muscles. NECK: Supple. No JVD. No LAD. No bruit. CARDIAC: S1 and S2 normal. No murmurs. ABDOMEN: Positive bowel sounds. Nontender and nondistended. No guarding. No rebound. No CVA tenderness bilaterally. EXTREMITIES: No erythema or edema. Positive pulses bilaterally. NEUROLOGICAL: Unsteady gait. Cranial nerves 2 through 12 grossly intact. SKIN: No rashes, lesions or skin tears. LABORATORY DATA: Hemoglobin 9.5 and hematocrit 30.4. Potassium 5.2, sodium 138 , chloride 111, carbon dioxide 20, BUN 60, creatinine 2.51, glucose 126, and calcium 8.9. ASSESSMENT: 1. Physical deconditioning. 2. Generalized weakness. 3. Acute kidney injury. 4. Recurrent urinary tract infections with hematuria. 5. Status post left intertrochanteric hip fracture with repair, February 26, 2019. 6. Unsteady gait. 7. Acute anemia. PLAN: The patient is a 69-year-old female, who has been admitted to [facility] for skilled rehabilitation. We will consult Physical Therapy for gait strengthening. We will consult Occupational Therapy to help with activities of daily living prior to discharge to back home. We will place the patient on a diabetic diet. We will resume home medications. We will start nitrofurantoin b.i.d. x10 days for urinary tract infection. We will place the patient on DVT prophylaxis with SINDHU hose and GI prophylaxis with PPI. The patient is to follow as an outpatient with urologist and follow as an outpatient with orthopedic surgeon, Dr. Gutierres. She is also to follow up with remedy developer, Dr. Nation as an outpatient. ESTIMATED LENGTH OF STAY: 2 to 3 weeks. CODE STATUS: The patient is a full code. Job ID: [id number] MTDD
[2019-04-26] MEDS: Floranex Packet PO SCH (09:16)
[2019-04-26] MEDS: Pioglitazone HCl 15 MG TAB PO SCH (09:17)
[2019-04-26] MEDS: Fish Oil 1,000 MG CAP PO SCH (09:17)
[2019-04-26] MEDS: Ascorbic Acid 500 mg Chewable Tablet PO SCH (09:17)
[2019-04-26] MEDS: Ferrous Sulfate 325 MG TAB PO SCH ×2 (09:17→17:25)
[2019-04-26] MEDS: Aspirin 81 mg Enteric Coated Tablet PO SCH ×2 (09:17→21:48)
[2019-04-26] MEDS: Nitrofurantoin Monohyd/M-Cryst 100 MG CAP PO SCH ×2 (09:17→21:48)
[2019-04-26] MEDS: Famotidine 20 MG TAB PO SCH ×2 (09:18→21:48)
[2019-04-26] MEDS: Carvedilol 12.5 MG TAB PO SCH ×2 (09:18→21:48)
[2019-04-26] MEDS: Multivitamin W/ Minerals 1 TAB PO SCH (09:18)
[2019-04-26] MEDS: Gabapentin 100 MG CAP PO SCH ×3 (09:18→21:48)
[2019-04-26] MEDS: Nystatin 500,000 UNITS/5 ML UDCUP SSW SCH ×4 (09:19→21:48)
[2019-04-26] MEDS: Nystatin Powder 15 GM BOT TOP SCH ×2 (09:20→21:49)
[2019-04-26] MEDS: Polyethylene Glycol 3350 17 GM Packet PO SCH (09:21)
[2019-04-26] MEDS: CRANBERRY 450 MG PO SCH (09:21)
[2019-04-26] MEDS: Amitriptyline HCl 25 MG TAB PO SCH (21:48)
[2019-04-26] MEDS: Oxybutynin ER 5 MG TAB PO SCH (21:48)
[2019-04-26] MEDS: Rosuvastatin 10 MG TAB PO SCH (21:49)
[2019-04-26] MEDS: Acetaminophen 500 MG TAB PO PRN (23:46)
[2019-04-27] MEDS: Polyethylene Glycol 3350 17 GM Packet PO SCH (08:03)
[2019-04-27] MEDS: Ferrous Sulfate 325 MG TAB PO SCH ×2 (08:03→16:53)
[2019-04-27] MEDS: Floranex Packet PO SCH (08:03)
[2019-04-27] MEDS: Nystatin 500,000 UNITS/5 ML UDCUP SSW SCH ×4 (08:03→22:03)
[2019-04-27] MEDS: Nitrofurantoin Monohyd/M-Cryst 100 MG CAP PO SCH ×2 (08:04→22:03)
[2019-04-27] MEDS: Fish Oil 1,000 MG CAP PO SCH (08:04)
[2019-04-27] MEDS: Famotidine 20 MG TAB PO SCH ×2 (08:04→22:03)
[2019-04-27] MEDS: Pioglitazone HCl 15 MG TAB PO SCH (08:04)
[2019-04-27] MEDS: Gabapentin 100 MG CAP PO SCH ×3 (08:04→22:03)
[2019-04-27] MEDS: Aspirin 81 mg Enteric Coated Tablet PO SCH ×2 (08:05→22:02)
[2019-04-27] MEDS: Nystatin Powder 15 GM BOT TOP SCH ×2 (08:05→22:04)
[2019-04-27] MEDS: Multivitamin W/ Minerals 1 TAB PO SCH (08:05)
[2019-04-27] MEDS: CRANBERRY 450 MG PO SCH (08:05)
[2019-04-27] MEDS: Ascorbic Acid 500 mg Chewable Tablet PO SCH (08:05)
[2019-04-27] MEDS: Carvedilol 12.5 MG TAB PO SCH ×2 (08:05→22:03)
[2019-04-27] MEDS: Amitriptyline HCl 25 MG TAB PO SCH (22:01)
[2019-04-27] MEDS: Rosuvastatin 10 MG TAB PO SCH (22:02)
[2019-04-27] MEDS: Oxybutynin ER 5 MG TAB PO SCH (22:02)
[2019-04-27] MEDS: Acetaminophen 500 MG TAB PO PRN (22:02)
[2019-04-28] MEDS: traMADol HCl 50 MG TAB PO PRN (05:42)
[2019-04-28] MEDS: Nystatin 500,000 UNITS/5 ML UDCUP SSW SCH ×4 (08:43→21:14)
[2019-04-28] MEDS: Floranex Packet PO SCH (08:43)
[2019-04-28] MEDS: Ferrous Sulfate 325 MG TAB PO SCH ×2 (08:45→17:30)
[2019-04-28] MEDS: Pioglitazone HCl 15 MG TAB PO SCH (08:45)
[2019-04-28] MEDS: Multivitamin W/ Minerals 1 TAB PO SCH (08:45)
[2019-04-28] MEDS: Ascorbic Acid 500 mg Chewable Tablet PO SCH (08:45)
[2019-04-28] MEDS: Aspirin 81 mg Enteric Coated Tablet PO SCH ×2 (08:45→21:14)
[2019-04-28] MEDS: Nitrofurantoin Monohyd/M-Cryst 100 MG CAP PO SCH ×2 (08:45→21:14)
[2019-04-28] MEDS: Fish Oil 1,000 MG CAP PO SCH (08:45)
[2019-04-28] MEDS: Famotidine 20 MG TAB PO SCH (08:46)
[2019-04-28] MEDS: Carvedilol 12.5 MG TAB PO SCH ×2 (08:46→21:14)
[2019-04-28] MEDS: Gabapentin 100 MG CAP PO SCH ×3 (08:46→21:14)
[2019-04-28] MEDS: Nystatin Powder 15 GM BOT TOP SCH ×2 (08:47→21:14)
[2019-04-28] MEDS: Polyethylene Glycol 3350 17 GM Packet PO SCH (08:48)
[2019-04-28] MEDS: CRANBERRY 450 MG PO SCH (08:49)
[2019-04-28] MEDS ORDERED: VASCEPA 1 GM CAPSULE PO SCH (17:00)
[2019-04-28] MEDS ORDERED: Atorvastatin Calcium 10 MG TAB PO SCH (21:00)
[2019-04-28] MEDS: Amitriptyline HCl 25 MG TAB PO SCH (21:13)
[2019-04-28] MEDS: Oxybutynin ER 5 MG TAB PO SCH (21:14)
[2019-04-29 05:26] LABS: Anion Gap 15 mmol/L (10-20); BUN (Urea Nitrogen) 55 mg/dL (9.8-20.1); Calc. Creatinine Clearance 40 mL/min (70-130); Calcium 9.8 mg/dL (7.8-10.44); Carbon Dioxide 24 mmol/L (23-31); Chloride 107 mmol/L (98-107); Estimated GFR-MDRD 20; Glucose 129 mg/dL (80-115); Potassium 4.7 mmol/L (3.5-5.1); Sodium 141 mmol/L (136-145)
[2019-04-29] MEDS: traMADol HCl 50 MG TAB PO PRN (06:30)
[2019-04-29] MEDS: Ferrous Sulfate 325 MG TAB PO SCH ×2 (07:58→17:05)
[2019-04-29] MEDS: Pioglitazone HCl 15 MG TAB PO SCH (07:58)
[2019-04-29] MEDS: Floranex Packet PO SCH (08:04)
[2019-04-29] MEDS: Ascorbic Acid 500 mg Chewable Tablet PO SCH (08:05)
[2019-04-29] MEDS: Multivitamin W/ Minerals 1 TAB PO SCH (08:05)
[2019-04-29] MEDS: Gabapentin 100 MG CAP PO SCH ×3 (08:05→21:13)
[2019-04-29] MEDS: Famotidine 20 MG TAB PO SCH (08:05)
[2019-04-29] MEDS: Aspirin 81 mg Enteric Coated Tablet PO SCH ×2 (08:05→21:13)
[2019-04-29] MEDS: Nystatin 500,000 UNITS/5 ML UDCUP SSW SCH ×4 (08:05→21:13)
[2019-04-29] MEDS: Fish Oil 1,000 MG CAP PO SCH (08:05)
[2019-04-29] MEDS: Nitrofurantoin Monohyd/M-Cryst 100 MG CAP PO SCH ×2 (08:05→21:13)
[2019-04-29] MEDS: Carvedilol 12.5 MG TAB PO SCH ×2 (08:05→21:13)
[2019-04-29] MEDS: Polyethylene Glycol 3350 17 GM Packet PO SCH (08:06)
[2019-04-29] MEDS: CRANBERRY 450 MG PO SCH (08:06)
[2019-04-29] MEDS: Nystatin Powder 15 GM BOT TOP SCH ×2 (08:06→21:14)
[2019-04-29] MEDS: Amitriptyline HCl 25 MG TAB PO SCH (21:12)
[2019-04-29] MEDS: Acetaminophen 500 MG TAB PO PRN (21:12)
[2019-04-29] MEDS: Oxybutynin ER 5 MG TAB PO SCH (21:13)
[2019-04-30] MEDS: traMADol HCl 50 MG TAB PO PRN (06:02)
[2019-04-30] MEDS: Nystatin Powder 15 GM BOT TOP SCH ×2 (08:16→21:03)
[2019-04-30] MEDS: Polyethylene Glycol 3350 17 GM Packet PO SCH (08:17)
[2019-04-30] MEDS: Fish Oil 1,000 MG CAP PO SCH (08:17)
[2019-04-30] MEDS: Famotidine 20 MG TAB PO SCH (08:17)
[2019-04-30] MEDS: Carvedilol 12.5 MG TAB PO SCH ×2 (08:17→21:03)
[2019-04-30] MEDS: Multivitamin W/ Minerals 1 TAB PO SCH (08:18)
[2019-04-30] MEDS: Ascorbic Acid 500 mg Chewable Tablet PO SCH (08:18)
[2019-04-30] MEDS: Gabapentin 100 MG CAP PO SCH ×3 (08:18→21:02)
[2019-04-30] MEDS: Nitrofurantoin Monohyd/M-Cryst 100 MG CAP PO SCH (08:18)
[2019-04-30] MEDS: Pioglitazone HCl 15 MG TAB PO SCH (08:18)
[2019-04-30] MEDS: Nystatin 500,000 UNITS/5 ML UDCUP SSW SCH ×4 (08:18→21:03)
[2019-04-30] MEDS: CRANBERRY 450 MG PO SCH (08:18)
[2019-04-30] MEDS: Floranex Packet PO SCH (08:18)
[2019-04-30] MEDS: Ferrous Sulfate 325 MG TAB PO SCH ×2 (08:18→16:26)
[2019-04-30] MEDS: Aspirin 81 mg Enteric Coated Tablet PO SCH ×2 (08:18→21:03)
[2019-04-30] MEDS: Acetaminophen 500 MG TAB PO PRN (21:03)
[2019-04-30] MEDS: Amitriptyline HCl 25 MG TAB PO SCH (21:03)
[2019-04-30] MEDS: Oxybutynin ER 5 MG TAB PO SCH (21:03)
[2019-05-01] MEDS: traMADol HCl 50 MG TAB PO PRN (06:00)
[2019-05-01] MEDS: Polyethylene Glycol 3350 17 GM Packet PO SCH (08:28)
[2019-05-01] MEDS: Floranex Packet PO SCH (08:29)
[2019-05-01] MEDS: Nystatin 500,000 UNITS/5 ML UDCUP SSW SCH ×4 (08:29→21:37)
[2019-05-01] MEDS: Carvedilol 12.5 MG TAB PO SCH ×2 (08:29→21:37)
[2019-05-01] MEDS: Pioglitazone HCl 15 MG TAB PO SCH (08:29)
[2019-05-01] MEDS: Ascorbic Acid 500 mg Chewable Tablet PO SCH (08:29)
[2019-05-01] MEDS: Fish Oil 1,000 MG CAP PO SCH (08:29)
[2019-05-01] MEDS: Multivitamin W/ Minerals 1 TAB PO SCH (08:29)
[2019-05-01] MEDS: Ferrous Sulfate 325 MG TAB PO SCH ×2 (08:29→16:36)
[2019-05-01] MEDS: Famotidine 20 MG TAB PO SCH (08:29)
[2019-05-01] MEDS: Nystatin Powder 15 GM BOT TOP SCH ×2 (08:30→21:37)
[2019-05-01] MEDS: CRANBERRY 450 MG PO SCH (08:30)
[2019-05-01] MEDS: Gabapentin 100 MG CAP PO SCH ×3 (08:30→21:37)
[2019-05-01] MEDS: Aspirin 81 mg Enteric Coated Tablet PO SCH ×2 (08:30→21:37)
[2019-05-01 10:50] VITALS: BMI 39.1
[2019-05-01] MEDS: Oxybutynin ER 5 MG TAB PO SCH (21:36)
[2019-05-01] MEDS: Amitriptyline HCl 25 MG TAB PO SCH (21:37)
[2019-05-01] MEDS: Acetaminophen 500 MG TAB PO PRN (21:40)
[2019-05-02 05:44] LABS: Anion Gap 15 mmol/L (10-20); BUN (Urea Nitrogen) 78 mg/dL (9.8-20.1); Calc. Creatinine Clearance 33 mL/min (70-130); Calcium 8.9 mg/dL (7.8-10.44); Carbon Dioxide 21 mmol/L (23-31); Chloride 106 mmol/L (98-107); Estimated GFR-MDRD 17; Glucose 106 mg/dL (80-115); Potassium 4.6 mmol/L (3.5-5.1); Sodium 137 mmol/L (136-145)
[2019-05-02] MEDS: traMADol HCl 50 MG TAB PO PRN (05:51)
[2019-05-02 06:17] LABS: #Monocytes 0.8 thou/uL (0.11-0.59); #Neutrophils 6.6 thou/uL (1.40-6.50); %Basophils 0.7 % (0.0-1.0); %Eosinophils 3.3 % (0.0-10.0); %Lymphocytes 26.4 % (21.0-51.0); %Monocytes 7.1 % (0.0-10.0); %Neutrophils 62.4 % (42.0-75.0); Hemoglobin 9.1 g/dL (12.0-16.0); Manual Diff?? NO; Mean Corpuscular HGB CONC 30.2 g/dL (32.0-36.0); Mean Corpuscular Hemoglobin 28.4 pg (27.0-31.0); Mean Corpuscular Volume 94.2 fL (78.0-98.0); Mean Platelet Volume 5.6 fL (7.4-10.4); Platelet Count 307 thou/uL (130-400); RBC Distribution Width 13.8 % (11.5-14.5); Red Blood Cell (RBC) Count 3.19 mill/uL (4.20-5.40); White Blood Cell (WBC) Count 10.6 thou/uL (4.8-10.8)
[2019-05-02 06:18] LABS: #Basophils 0.1 thou/uL (0.0-0.2); #Eosinphils 0.3 thou/uL (0.0-0.7); MDiff Complete? YES
[2019-05-02] MEDS: Carvedilol 12.5 MG TAB PO SCH ×2 (09:18→21:13)
[2019-05-02] MEDS: Fish Oil 1,000 MG CAP PO SCH (09:18)
[2019-05-02] MEDS: Floranex Packet PO SCH (09:18)
[2019-05-02] MEDS: Gabapentin 100 MG CAP PO SCH ×3 (09:18→21:13)
[2019-05-02] MEDS: Polyethylene Glycol 3350 17 GM Packet PO SCH (09:19)
[2019-05-02] MEDS: Famotidine 20 MG TAB PO SCH (09:19)
[2019-05-02] MEDS: Ferrous Sulfate 325 MG TAB PO SCH ×2 (09:19→17:31)
[2019-05-02] MEDS: Ascorbic Acid 500 mg Chewable Tablet PO SCH (09:19)
[2019-05-02] MEDS: Aspirin 81 mg Enteric Coated Tablet PO SCH (09:20)
[2019-05-02] MEDS: Pioglitazone HCl 15 MG TAB PO SCH (09:20)
[2019-05-02] MEDS: Multivitamin W/ Minerals 1 TAB PO SCH (09:20)
[2019-05-02] MEDS: CRANBERRY 450 MG PO SCH (09:20)
[2019-05-02] MEDS: Nystatin 500,000 UNITS/5 ML UDCUP SSW SCH ×4 (09:29→21:13)
[2019-05-02 12:36] LABS: Bilirubin Small (Negative); Blood, Urine Large (Negative); Clarity Cloudy (Clear); Glucose, Urine (Dipstick) Negative (Negative); Leukocyte Trace (Negative); Nitrite Negative (Negative); Protein, Urine (Dipstick) > or equal to 300 mg/dL (Neg-Trace); Urobilinogen 0.2 mg/dL (Less than 2)
[2019-05-02 12:38] LABS: Bacteria/HPF 1+ HPF (None Seen); RBC/HPF Greater than 50 HPF (0-3); Squamous Epithelial 0-3 HPF (0-3); Urine Culture Reflex No No
[2019-05-02] MEDS ORDERED: Sodium Chloride 0.9% 1,000 ML IV SCH (12:45)
--- NOTE | 2019-05-02 15:08 | ULT ---
Exam: Bilateral renal ultrasound HISTORY: Worsening renal function. Proteinuria. COMPARISON: 01/18/2027 FINDINGS: Right kidney: Normal cortical echotexture. No hydronephrosis. There is right renal cortical thinning Right kidney measurements: 8.3 x 5.3 x 4.8 cm. Left kidney: Normal cortical echotexture. No hydronephrosis. There is left renal cortical thinning Left kidney measurements 5.2 x 4.9 x 8.4 cm. Urinary bladder: Grossly no mucosal abnormality. IMPRESSION: No hydronephrosis. Bilateral renal cortical thinning.
[2019-05-02] MEDS: cefTRIAXone\\ROCEPHIN 1 GM in Sodium Chloride 0.9% 100 ML IVPB SCH (15:30)
[2019-05-02] MEDS: Oxybutynin ER 5 MG TAB PO SCH (21:13)
[2019-05-02] MEDS: Amitriptyline HCl 25 MG TAB PO SCH (21:13)
[2019-05-02] MEDS: Acetaminophen 500 MG TAB PO PRN (22:03)
[2019-05-03 05:26] LABS: Anion Gap 15 mmol/L (10-20); BUN (Urea Nitrogen) 74 mg/dL (9.8-20.1); Calc. Creatinine Clearance 39 mL/min (70-130); Calcium 9.4 mg/dL (7.8-10.44); Carbon Dioxide 20 mmol/L (23-31); Chloride 110 mmol/L (98-107); Estimated GFR-MDRD 20; Glucose 106 mg/dL (80-115); Potassium 4.8 mmol/L (3.5-5.1); Sodium 140 mmol/L (136-145)
[2019-05-03] MEDS: Floranex Packet PO SCH (08:26)
[2019-05-03] MEDS: Ferrous Sulfate 325 MG TAB PO SCH ×2 (08:27→17:08)
[2019-05-03] MEDS: Pioglitazone HCl 15 MG TAB PO SCH (08:27)
[2019-05-03] MEDS: Nystatin 500,000 UNITS/5 ML UDCUP SSW SCH ×4 (08:27→21:19)
[2019-05-03] MEDS: Famotidine 20 MG TAB PO SCH (08:27)
[2019-05-03] MEDS: Ascorbic Acid 500 mg Chewable Tablet PO SCH (08:28)
[2019-05-03] MEDS: Carvedilol 12.5 MG TAB PO SCH ×2 (08:28→21:19)
[2019-05-03] MEDS: Polyethylene Glycol 3350 17 GM Packet PO SCH (08:28)
[2019-05-03] MEDS: Gabapentin 100 MG CAP PO SCH ×3 (08:28→21:19)
[2019-05-03] MEDS: Fish Oil 1,000 MG CAP PO SCH (08:28)
[2019-05-03] MEDS: Multivitamin W/ Minerals 1 TAB PO SCH (08:28)
[2019-05-03] MEDS: CRANBERRY 450 MG PO SCH (08:31)
[2019-05-03] MEDS ORDERED: Sodium Chloride 0.9% 1,000 ML IV SCH (12:00)
[2019-05-03] MEDS: cefTRIAXone\\ROCEPHIN 1 GM in Sodium Chloride 0.9% 100 ML IVPB SCH (13:14)
[2019-05-03] MEDS: Amitriptyline HCl 25 MG TAB PO SCH (21:18)
[2019-05-03] MEDS: Oxybutynin ER 5 MG TAB PO SCH (21:19)
[2019-05-03] MEDS: Acetaminophen 500 MG TAB PO PRN (21:21)
[2019-05-04 05:49] LABS: Anion Gap 13 mmol/L (10-20); BUN (Urea Nitrogen) 62 mg/dL (9.8-20.1); Calc. Creatinine Clearance 49 mL/min (70-130); Calcium 9.2 mg/dL (7.8-10.44); Carbon Dioxide 22 mmol/L (23-31); Chloride 115 mmol/L (98-107); Estimated GFR-MDRD 27; Glucose 102 mg/dL (80-115); Potassium 4.6 mmol/L (3.5-5.1); Sodium 145 mmol/L (136-145)
[2019-05-04] MEDS: Nystatin 500,000 UNITS/5 ML UDCUP SSW SCH ×4 (08:18→21:04)
[2019-05-04] MEDS: Gabapentin 100 MG CAP PO SCH ×3 (08:18→21:04)
[2019-05-04] MEDS: Floranex Packet PO SCH (08:18)
[2019-05-04] MEDS: Polyethylene Glycol 3350 17 GM Packet PO SCH (08:18)
[2019-05-04] MEDS: Carvedilol 12.5 MG TAB PO SCH ×2 (08:18→21:04)
[2019-05-04] MEDS: Famotidine 20 MG TAB PO SCH (08:19)
[2019-05-04] MEDS: Multivitamin W/ Minerals 1 TAB PO SCH (08:19)
[2019-05-04] MEDS: Pioglitazone HCl 15 MG TAB PO SCH (08:19)
[2019-05-04] MEDS: Fish Oil 1,000 MG CAP PO SCH (08:19)
[2019-05-04] MEDS: Ascorbic Acid 500 mg Chewable Tablet PO SCH (08:19)
[2019-05-04] MEDS: Ferrous Sulfate 325 MG TAB PO SCH ×2 (08:19→17:43)
[2019-05-04] MEDS: CRANBERRY 450 MG PO SCH (08:20)
[2019-05-04] MEDS: cefTRIAXone\\ROCEPHIN 1 GM in Sodium Chloride 0.9% 100 ML IVPB SCH (14:33)
[2019-05-04] MEDS: Amitriptyline HCl 25 MG TAB PO SCH (21:04)
[2019-05-04] MEDS: Oxybutynin ER 5 MG TAB PO SCH (21:04)
[2019-05-05] MEDS: Floranex Packet PO SCH (08:34)
[2019-05-05] MEDS: Polyethylene Glycol 3350 17 GM Packet PO SCH (08:34)
[2019-05-05] MEDS: Nystatin 500,000 UNITS/5 ML UDCUP SSW SCH ×4 (08:34→21:04)
[2019-05-05] MEDS: Multivitamin W/ Minerals 1 TAB PO SCH (08:35)
[2019-05-05] MEDS: Carvedilol 12.5 MG TAB PO SCH ×2 (08:35→21:04)
[2019-05-05] MEDS: Ferrous Sulfate 325 MG TAB PO SCH ×2 (08:35→17:20)
[2019-05-05] MEDS: Fish Oil 1,000 MG CAP PO SCH (08:35)
[2019-05-05] MEDS: Famotidine 20 MG TAB PO SCH (08:35)
[2019-05-05] MEDS: CRANBERRY 450 MG PO SCH (08:36)
[2019-05-05] MEDS: Pioglitazone HCl 15 MG TAB PO SCH (08:36)
[2019-05-05] MEDS: Ascorbic Acid 500 mg Chewable Tablet PO SCH (08:36)
[2019-05-05] MEDS: Gabapentin 100 MG CAP PO SCH ×3 (08:36→21:04)
[2019-05-05 14:43] LABS: EliA Vaculitis New Method **** NEW METHOD ****; Glomerular Basemt Membrane Ab Less than 1.9 EliAU/mL (<7 Negative)
[2019-05-05 14:46] LABS: ANA Symphony (Qualitative) Negative (Negative); ANA Symphony (Quantitative) 0.3 Ratio (< 0.7 Negative); dsDNA IgG Antibody 1.1 IU/mL (<10 Negative)
[2019-05-05] MEDS: Acetaminophen 500 MG TAB PO PRN (21:03)
[2019-05-05] MEDS: Amitriptyline HCl 25 MG TAB PO SCH (21:04)
[2019-05-05] MEDS: Oxybutynin ER 5 MG TAB PO SCH (21:04)
[2019-05-06] MEDS: Floranex Packet PO SCH (09:05)
[2019-05-06] MEDS: Nystatin 500,000 UNITS/5 ML UDCUP SSW SCH ×4 (09:05→20:14)
[2019-05-06] MEDS: Carvedilol 12.5 MG TAB PO SCH ×2 (09:06→20:14)
[2019-05-06] MEDS: Ascorbic Acid 500 mg Chewable Tablet PO SCH (09:06)
[2019-05-06] MEDS: Fish Oil 1,000 MG CAP PO SCH (09:06)
[2019-05-06] MEDS: Gabapentin 100 MG CAP PO SCH ×3 (09:06→20:14)
[2019-05-06] MEDS: Pioglitazone HCl 15 MG TAB PO SCH (09:06)
[2019-05-06] MEDS: Ferrous Sulfate 325 MG TAB PO SCH ×2 (09:06→16:55)
[2019-05-06] MEDS: Multivitamin W/ Minerals 1 TAB PO SCH (09:06)
[2019-05-06] MEDS: Polyethylene Glycol 3350 17 GM Packet PO SCH (09:06)
[2019-05-06] MEDS: Famotidine 20 MG TAB PO SCH (09:06)
[2019-05-06] MEDS: CRANBERRY 250 MG PO SCH (09:07)
[2019-05-06] MEDS: Amitriptyline HCl 25 MG TAB PO SCH (20:14)
[2019-05-06] MEDS: Acetaminophen 500 MG TAB PO PRN (20:14)
[2019-05-06] MEDS: Oxybutynin ER 5 MG TAB PO SCH (20:15)
[2019-05-07] MEDS: Floranex Packet PO SCH (08:12)
[2019-05-07] MEDS: Pioglitazone HCl 15 MG TAB PO SCH (08:13)
[2019-05-07] MEDS: Gabapentin 100 MG CAP PO SCH ×3 (08:13→21:06)
[2019-05-07] MEDS: Ferrous Sulfate 325 MG TAB PO SCH ×2 (08:13→17:32)
[2019-05-07] MEDS: Fish Oil 1,000 MG CAP PO SCH (08:13)
[2019-05-07] MEDS: Famotidine 20 MG TAB PO SCH (08:13)
[2019-05-07] MEDS: Nystatin 500,000 UNITS/5 ML UDCUP SSW SCH ×4 (08:13→21:06)
[2019-05-07] MEDS: Multivitamin W/ Minerals 1 TAB PO SCH (08:13)
[2019-05-07] MEDS: Ascorbic Acid 500 mg Chewable Tablet PO SCH (08:13)
[2019-05-07] MEDS: Carvedilol 12.5 MG TAB PO SCH ×2 (08:13→21:05)
[2019-05-07] MEDS: Polyethylene Glycol 3350 17 GM Packet PO SCH (08:14)
[2019-05-07] MEDS: CRANBERRY 250 MG PO SCH (08:14)
[2019-05-07] MEDS: Acetaminophen 500 MG TAB PO PRN ×2 (08:18→21:04)
[2019-05-07 16:09] LABS: Cytoplasmic (C-ANCA) <1:20 titer (Neg:<1:20); Perinuclear (P-ANCA) <1:20 titer (Neg:<1:20)
[2019-05-07] MEDS: Oxybutynin ER 5 MG TAB PO SCH (21:04)
[2019-05-07] MEDS: Amitriptyline HCl 25 MG TAB PO SCH (21:05)
[2019-05-08] MEDS: traMADol HCl 50 MG TAB PO PRN (06:53)
[2019-05-08] MEDS: Floranex Packet PO SCH (08:09)
[2019-05-08] MEDS: Nystatin 500,000 UNITS/5 ML UDCUP SSW SCH ×4 (08:09→21:14)
[2019-05-08] MEDS: Multivitamin W/ Minerals 1 TAB PO SCH (08:10)
[2019-05-08] MEDS: Ascorbic Acid 500 mg Chewable Tablet PO SCH (08:10)
[2019-05-08] MEDS: Carvedilol 12.5 MG TAB PO SCH ×2 (08:10→21:13)
[2019-05-08] MEDS: Famotidine 20 MG TAB PO SCH (08:10)
[2019-05-08] MEDS: Fish Oil 1,000 MG CAP PO SCH (08:10)
[2019-05-08] MEDS: Gabapentin 100 MG CAP PO SCH ×3 (08:10→21:14)
[2019-05-08] MEDS: Ferrous Sulfate 325 MG TAB PO SCH ×2 (08:10→17:06)
[2019-05-08] MEDS: Pioglitazone HCl 15 MG TAB PO SCH (08:10)
[2019-05-08] MEDS: CRANBERRY 250 MG PO SCH (08:12)
[2019-05-08] MEDS: Polyethylene Glycol 3350 17 GM Packet PO SCH (08:12)
[2019-05-08 09:51] LABS: Bilirubin Negative (Negative); Blood, Urine Moderate (Negative); Clarity Clear (Clear); Glucose, Urine (Dipstick) Negative (Negative); Leukocyte Trace (Negative); Nitrite Negative (Negative); Protein, Urine (Dipstick) 100 mg/dL (Neg-Trace); Urobilinogen 0.2 mg/dL (Less than 2)
[2019-05-08 09:56] LABS: Bacteria/HPF Rare-Few HPF (None Seen); RBC/HPF Greater than 50 HPF (0-3); Squamous Epithelial 0-3 HPF (0-3)
[2019-05-08] MEDS: Amitriptyline HCl 25 MG TAB PO SCH (21:13)
[2019-05-08] MEDS: Doxycycline 100 MG CAP PO SCH (21:14)
[2019-05-08] MEDS: Acetaminophen 500 MG TAB PO PRN (21:15)
[2019-05-09] MEDS: traMADol HCl 50 MG TAB PO PRN (05:46)
[2019-05-09] MEDS: Polyethylene Glycol 3350 17 GM Packet PO SCH (09:17)
[2019-05-09] MEDS: Nystatin 500,000 UNITS/5 ML UDCUP SSW SCH ×4 (09:17→21:41)
[2019-05-09] MEDS: Floranex Packet PO SCH (09:17)
[2019-05-09] MEDS: Fish Oil 1,000 MG CAP PO SCH (09:18)
[2019-05-09] MEDS: Pioglitazone HCl 15 MG TAB PO SCH (09:18)
[2019-05-09] MEDS: Gabapentin 100 MG CAP PO SCH ×3 (09:18→21:40)
[2019-05-09] MEDS: Famotidine 20 MG TAB PO SCH (09:18)
[2019-05-09] MEDS: Doxycycline 100 MG CAP PO SCH ×2 (09:18→21:40)
[2019-05-09] MEDS: Ascorbic Acid 500 mg Chewable Tablet PO SCH (09:19)
[2019-05-09] MEDS: Carvedilol 12.5 MG TAB PO SCH ×2 (09:19→21:40)
[2019-05-09] MEDS: Multivitamin W/ Minerals 1 TAB PO SCH (09:19)
[2019-05-09] MEDS: Ferrous Sulfate 325 MG TAB PO SCH ×2 (09:19→17:06)
[2019-05-09] MEDS: CRANBERRY 250 MG PO SCH (09:25)
[2019-05-09] MEDS: Acetaminophen 500 MG TAB PO PRN (21:40)
[2019-05-09] MEDS: Amitriptyline HCl 25 MG TAB PO SCH (21:40)
[2019-05-10] MEDS: Polyethylene Glycol 3350 17 GM Packet PO SCH (08:11)
[2019-05-10] MEDS: Ferrous Sulfate 325 MG TAB PO SCH ×2 (08:11→17:04)
[2019-05-10] MEDS: Famotidine 20 MG TAB PO SCH (08:11)
[2019-05-10] MEDS: Pioglitazone HCl 15 MG TAB PO SCH (08:11)
[2019-05-10] MEDS: Doxycycline 100 MG CAP PO SCH ×2 (08:11→21:24)
[2019-05-10] MEDS: Multivitamin W/ Minerals 1 TAB PO SCH (08:11)
[2019-05-10] MEDS: Nystatin 500,000 UNITS/5 ML UDCUP SSW SCH ×4 (08:11→21:24)
[2019-05-10] MEDS: Gabapentin 100 MG CAP PO SCH ×3 (08:11→21:24)
[2019-05-10] MEDS: Fish Oil 1,000 MG CAP PO SCH (08:11)
[2019-05-10] MEDS: Floranex Packet PO SCH (08:11)
[2019-05-10] MEDS: Ascorbic Acid 500 mg Chewable Tablet PO SCH (08:12)
[2019-05-10] MEDS: Carvedilol 12.5 MG TAB PO SCH ×2 (08:12→21:24)
[2019-05-10] MEDS: CRANBERRY 250 MG PO SCH (08:13)
[2019-05-10] MEDS: Acetaminophen 500 MG TAB PO PRN (21:24)
[2019-05-10] MEDS: Amitriptyline HCl 25 MG TAB PO SCH (21:24)
[2019-05-11] MEDS: Ascorbic Acid 500 mg Chewable Tablet PO SCH (08:25)
[2019-05-11] MEDS: Multivitamin W/ Minerals 1 TAB PO SCH (08:25)
[2019-05-11] MEDS: Floranex Packet PO SCH (08:25)
[2019-05-11] MEDS: Pioglitazone HCl 15 MG TAB PO SCH (08:25)
[2019-05-11] MEDS: Nystatin 500,000 UNITS/5 ML UDCUP SSW SCH ×4 (08:25→21:11)
[2019-05-11] MEDS: Doxycycline 100 MG CAP PO SCH ×2 (08:26→21:11)
[2019-05-11] MEDS: Fish Oil 1,000 MG CAP PO SCH (08:26)
[2019-05-11] MEDS: Ferrous Sulfate 325 MG TAB PO SCH ×2 (08:26→17:01)
[2019-05-11] MEDS: Carvedilol 12.5 MG TAB PO SCH ×2 (08:26→21:11)
[2019-05-11] MEDS: Gabapentin 100 MG CAP PO SCH ×3 (08:26→21:11)
[2019-05-11] MEDS: Famotidine 20 MG TAB PO SCH (08:27)
[2019-05-11] MEDS: Polyethylene Glycol 3350 17 GM Packet PO SCH (08:28)
[2019-05-11] MEDS: CRANBERRY 250 MG PO SCH (08:28)
[2019-05-11] MEDS: Acetaminophen 500 MG TAB PO PRN (21:11)
[2019-05-11] MEDS: Amitriptyline HCl 25 MG TAB PO SCH (21:11)
[2019-05-12] MEDS: traMADol HCl 50 MG TAB PO PRN (05:57)
[2019-05-12] MEDS: Nystatin 500,000 UNITS/5 ML UDCUP SSW SCH ×2 (08:24→13:05)
[2019-05-12] MEDS: Polyethylene Glycol 3350 17 GM Packet PO SCH (08:24)
[2019-05-12] MEDS: Floranex Packet PO SCH (08:24)
[2019-05-12] MEDS: Ascorbic Acid 500 mg Chewable Tablet PO SCH (08:25)
[2019-05-12] MEDS: CRANBERRY 250 MG PO SCH (08:25)
[2019-05-12] MEDS: Doxycycline 100 MG CAP PO SCH ×2 (08:26→20:13)
[2019-05-12] MEDS: Multivitamin W/ Minerals 1 TAB PO SCH (08:26)
[2019-05-12] MEDS: Fish Oil 1,000 MG CAP PO SCH (08:26)
[2019-05-12] MEDS: Gabapentin 100 MG CAP PO SCH ×3 (08:26→20:14)
[2019-05-12] MEDS: Famotidine 20 MG TAB PO SCH (08:27)
[2019-05-12] MEDS: Carvedilol 12.5 MG TAB PO SCH ×2 (08:27→20:14)
[2019-05-12] MEDS: Ferrous Sulfate 325 MG TAB PO SCH ×2 (08:27→17:17)
[2019-05-12] MEDS: Pioglitazone HCl 15 MG TAB PO SCH (08:27)
[2019-05-12] MEDS: Amitriptyline HCl 25 MG TAB PO SCH (20:13)
[2019-05-13] MEDS: traMADol HCl 50 MG TAB PO PRN (06:10)
[2019-05-13] MEDS: Ferrous Sulfate 325 MG TAB PO SCH ×2 (07:52→17:20)
[2019-05-13] MEDS: Pioglitazone HCl 15 MG TAB PO SCH (07:52)
[2019-05-13] MEDS: Polyethylene Glycol 3350 17 GM Packet PO SCH (07:53)
[2019-05-13] MEDS: Fish Oil 1,000 MG CAP PO SCH (07:53)
[2019-05-13] MEDS: Floranex Packet PO SCH (07:53)
[2019-05-13] MEDS: Multivitamin W/ Minerals 1 TAB PO SCH (07:53)
[2019-05-13] MEDS: Gabapentin 100 MG CAP PO SCH ×3 (07:53→20:12)
[2019-05-13] MEDS: Carvedilol 12.5 MG TAB PO SCH ×2 (07:54→20:13)
[2019-05-13] MEDS: Doxycycline 100 MG CAP PO SCH ×2 (07:54→20:12)
[2019-05-13] MEDS: Famotidine 20 MG TAB PO SCH (07:54)
[2019-05-13] MEDS: Ascorbic Acid 500 mg Chewable Tablet PO SCH (07:54)
[2019-05-13] MEDS: CRANBERRY 250 MG PO SCH (07:54)
[2019-05-13] MEDS: Amitriptyline HCl 25 MG TAB PO SCH (20:11)
[2019-05-14] MEDS: traMADol HCl 50 MG TAB PO PRN (06:16)
[2019-05-14] MEDS: Carvedilol 12.5 MG TAB PO SCH ×2 (09:06→20:16)
[2019-05-14] MEDS: Multivitamin W/ Minerals 1 TAB PO SCH (09:06)
[2019-05-14] MEDS: Ascorbic Acid 500 mg Chewable Tablet PO SCH (09:06)
[2019-05-14] MEDS: Polyethylene Glycol 3350 17 GM Packet PO SCH (09:06)
[2019-05-14] MEDS: Fish Oil 1,000 MG CAP PO SCH (09:07)
[2019-05-14] MEDS: Doxycycline 100 MG CAP PO SCH ×2 (09:07→20:17)
[2019-05-14] MEDS: Pioglitazone HCl 15 MG TAB PO SCH (09:07)
[2019-05-14] MEDS: Gabapentin 100 MG CAP PO SCH ×3 (09:07→20:16)
[2019-05-14] MEDS: Famotidine 20 MG TAB PO SCH (09:08)
[2019-05-14] MEDS: Floranex Packet PO SCH (09:08)
[2019-05-14] MEDS: Ferrous Sulfate 325 MG TAB PO SCH ×2 (09:08→17:29)
[2019-05-14] MEDS: CRANBERRY 250 MG PO SCH (09:09)
[2019-05-14] MEDS: Acetaminophen 500 MG TAB PO PRN ×2 (09:15→21:31)
[2019-05-14] MEDS: Amitriptyline HCl 25 MG TAB PO SCH (20:16)
[2019-05-15] MEDS: traMADol HCl 50 MG TAB PO PRN (06:19)
[2019-05-15] MEDS: CRANBERRY 250 MG PO SCH (08:11)
[2019-05-15] MEDS: Floranex Packet PO SCH (08:11)
[2019-05-15] MEDS: Ferrous Sulfate 325 MG TAB PO SCH ×2 (08:12→16:41)
[2019-05-15] MEDS: Multivitamin W/ Minerals 1 TAB PO SCH (08:12)
[2019-05-15] MEDS: Gabapentin 100 MG CAP PO SCH ×3 (08:12→22:08)
[2019-05-15] MEDS: Doxycycline 100 MG CAP PO SCH ×2 (08:12→22:08)
[2019-05-15] MEDS: Carvedilol 12.5 MG TAB PO SCH ×2 (08:12→22:07)
[2019-05-15] MEDS: Ascorbic Acid 500 mg Chewable Tablet PO SCH (08:12)
[2019-05-15] MEDS: Pioglitazone HCl 15 MG TAB PO SCH (08:12)
[2019-05-15] MEDS: Fish Oil 1,000 MG CAP PO SCH (08:12)
[2019-05-15] MEDS: Famotidine 20 MG TAB PO SCH (08:12)
[2019-05-15] MEDS: Polyethylene Glycol 3350 17 GM Packet PO SCH (08:17)
[2019-05-15] MEDS ORDERED: Doxycycline 100 MG CAP PO SCH (09:15)
[2019-05-15] MEDS: Amitriptyline HCl 25 MG TAB PO SCH (22:07)
[2019-05-15] MEDS: Acetaminophen 500 MG TAB PO PRN (22:08)
[2019-05-16 05:51] LABS: ALT (SGPT) 14 U/L (8-55); AST (SGOT) 19 U/L (5-34); Albumin 3.2 g/dL (3.4-4.8); Alkaline Phosphatase 124 U/L (40-110); Anion Gap 13 mmol/L (10-20); BUN (Urea Nitrogen) 73 mg/dL (9.8-20.1); Bilirubin, Total 0.2 mg/dL (0.2-1.2); Calc. Creatinine Clearance 48 mL/min (70-130); Calcium 9.7 mg/dL (7.8-10.44); Carbon Dioxide 25 mmol/L (23-31); Chloride 109 mmol/L (98-107); Estimated GFR-MDRD 26; Globulin 3.8 g/dL (2.4-3.5); Glucose 113 mg/dL (80-115); Potassium 4.5 mmol/L (3.5-5.1); Sodium 142 mmol/L (136-145)
[2019-05-16] MEDS: traMADol HCl 50 MG TAB PO PRN (08:17)
[2019-05-16] MEDS: Floranex Packet PO SCH (08:18)
[2019-05-16] MEDS: Famotidine 20 MG TAB PO SCH (08:19)
[2019-05-16] MEDS: Polyethylene Glycol 3350 17 GM Packet PO SCH (08:19)
[2019-05-16] MEDS: CRANBERRY 250 MG PO SCH (08:20)
[2019-05-16] MEDS: Multivitamin W/ Minerals 1 TAB PO SCH (08:20)
[2019-05-16] MEDS: Carvedilol 12.5 MG TAB PO SCH (08:20)
[2019-05-16] MEDS: Ferrous Sulfate 325 MG TAB PO SCH (08:21)
[2019-05-16] MEDS: Doxycycline 100 MG CAP PO SCH (08:21)
[2019-05-16] MEDS: Fish Oil 1,000 MG CAP PO SCH (08:21)
[2019-05-16] MEDS: Pioglitazone HCl 15 MG TAB PO SCH (08:21)
[2019-05-16] MEDS: Gabapentin 100 MG CAP PO SCH (08:22)
[2019-05-16] MEDS: Ascorbic Acid 500 mg Chewable Tablet PO SCH (08:22)
[2019-05-16 08:34] VITALS: BP 140/66; TEMP 97.8
--- NOTE | 2019-05-19 07:22 | DIS ---
DATE OF ADMISSION: 04/24/2019 DATE OF DISCHARGE: 05/16/2019 DISCHARGE PHYSICIAN/PRIMARY CARE PHYSICIAN: Ana Luna MD REASON FOR ADMISSION: Skilled rehab in [place] secondary to deconditioned status from recent hospitalization. DISPOSITION: Home. CONDITION ON DISCHARGE: Stable. MEDICATIONS: 1. Doxycycline 100 mg p.o. b.i.d. for one more week. 2. Myrbetriq ER 50 mg p.o. daily. 3. Pioglitazone 15 mg p.o. q.a.m. 4. Polyethylene glycol 17 g p.o. daily. 5. Amitriptyline 25 mg p.o. at bedtime. 6. Acetaminophen 1000 mg p.o. at bedtime. 7. Floranex 1 g p.o. daily. 8. Aspirin 81 mg p.o. daily. 9. Carvedilol 12.5 mg p.o. b.i.d. 10. Cholecalciferol 1000 mg p.o. daily. 11. Cranberry 900 mg p.o. daily. 12. Famotidine 20 mg p.o. daily. 13. Ferrous sulfate 325 mg p.o. b.i.d. 14. Fish oil 1000 mg p.o. daily. 15. Gabapentin 100 mg p.o. t.i.d. 16. Vascepa 2 g p.o. b.i.d. 17. Multivitamins one tablet p.o. daily. 18. Sennosides/Docusate 8.6/50 mg two tablets p.o. b.i.d. p.r.n. 19. Tramadol 50 mg p.o. q.6 hours p.r.n. DIET: Low salt, 1500 ADA, heart-healthy diet. ACTIVITY: To use rolling walker at all times, both for transfers and ambulation. Fall precautions. FOLLOWUP: 1. Follow up with Dr. Luna/PCP in 1 week. 2. Follow up with , liquid compounder on Sunday, 05/21, at 10:15. 3. Follow up with Dr. Gutierres, [facility]opedic [facility] on 05/21/2019 at 12:15. 4. Follow up with Dr. Nation/bottoming machine operator on 06/06/2019 at 12 p.m. at [facility]. 5. Follow up with Dr. Garcia for Urology on , 08/07/2019 at 11 am. 6. Referred to outpatient therapy at [facility] Therapy Department on 05/20 at 11 a.m. HISTORY OF THE PRESENT ILLNESS AND HOSPITAL COURSE: Ms. Parada is a 69-year-old female with multiple chronic medical conditions including hypertension, dyslipidemia, diabetes, morbid obesity, recurrent UTI, chronic kidney disease, and history of falls secondary to unsteadiness of gait. This patient was recently in [facility] for skilled rehab after she fractured her left femoral neck. She was discharged on 04/18/2019. The patient was sent back to the [facility] ER on 04/19/2019 due to severe weakness. At that time, the patient was diagnosed with UTI. She was admitted to [facility] at that time and was started on empiric antibiotic treatment. The patient was transferred to [facility] for acute kidney injury with a creatinine of 4. The patient was treated appropriately in [facility]. At that time, the patient was apparently doing well and remained generally weak, so she was transferred back to [facility] for rehab prior to going back to the custodial. During that time, the patient presented with severe debility. She could hardly get up or out of bed on her own. She was max assist for transfers and unable to walk even a few steps. The patient did well with therapy over time. She is independent with mobility from bed to the wheelchair and walked 200 feet using rolling walker with contact guard assist prior to discharge. Her rehab course was complicated with recurrent UTI, associated with gross hematuria and worsening of overall kidney function again. She was treated couple of times with both IV and oral antibiotic during her rehab stay for this. Her two sets of culture that were done separately were initially came back positive, but two times without growth. She was seen by both bottoming machine operator and urologist for this. Dr. Nation recommended further Immunology evaluation to rule out vasculitis. Her ANCA screen, anti-dsDNA antibodies and anti-glomerular basement membrane antibodies all came back negative. After she was hydrated with intravenous fluids for 48 hours, the patient's kidney function improved from 2.73 down to 1.85 on 05/04/2019 creatinine. Prior to discharge, the patient's creatinine was stable at 0.188. The patient admits that she is not drinking much of water or liquids. She is highly recommended to continue adequate oral hydration even at home. Due to her worsening renal function, some of her medications were adjusted according to renal function. Lisinopril and hydrochlorothiazide were continued. Her blood pressure has been well stable with beta-marquita alone. She was also maintained on pioglitazone alone for diabetes, for which she did well. Her fasting sugar usually runs from 111 to low 120s, seldom at 130s. During the hospital course, the patient also reported significant myelopathy. Statin therapy was likewise put on hold. The patient did well and overall muscle strength had improved. She was only using Tylenol p.r.n. for pain, seldom uses tramadol for severe pain. The patient had also seen Dr. Garcia for urology care as an outpatient during her rehab course. Oxybutynin was changed to Myrbetriq. She was recommended for empiric treatment of doxycycline oral to complete two-week course. Then, she will be maintained on Keflex daily for the next 90 days. She is scheduled to follow up with Dr. Garcia in three months for re-evaluation. On 05/16/2019, the patient was comfortable to go back home. She remained at risk for fall. She is not recommended to live by herself. This time, she will go back home with one of her sister's as a primary caregiver. Following discharge, the patient is planning to stay with her sister and had an outpatient therapy set up at [facility]. PHYSICAL EXAMINATION: VITAL SIGNS: Prior to discharge; blood pressure 140/66, temperature 97.8, pulse 85, respirations 16, O2 sats 98% on room air. Weight 242 pounds, height 5 feet 6 inches. GENERAL: The patient is awake, alert, and oriented x3. Not in distress. HEENT: Normocephalic, atraumatic. PERRLA. Intact EOM. Anicteric sclerae. Oral mucosa is moist. NECK: Supple with full range of motion. No LAD. No thyromegaly. Flat JVD. No bruit. CHEST: Normal excursion. Clear to auscultation bilaterally. CARDIAC: RRR. Normal S1, S2. No murmurs. ABDOMEN: Obese, soft. Normoactive bowel sounds. Nondistended, nontender. No rebound or guarding. Negative CVA tenderness bilaterally. EXTREMITIES: Trace edema on the dorsum of the feet. No erythema. No cyanosis. No clubbing. NEURO: Nonfocal. DTRs 2+. Gait unsteady, needing rolling walker for assistance. SKIN: Postoperative site on the left hip is well healed, dry, without any periwound erythema or edema. No drainage. No exudates. Time spent on this discharge in examining the patient, coordinating cares, counseling with the patient and the family, 35 minutes. Job ID: [id number]
== END 2019-05-16 14:55 | disposition home or self-care (01) | DRG 948 ==
LOC: MADMS 21:09
PROVIDERS: ADMIT Family Medicine; ATTEND Family Medicine
DX: R53.1 Weakness (principal); N17.9 Acute kidney failure, unspecified; N39.0 Urinary tract infection, site not specified; I10 Essential (primary) hypertension; E11.9 Type 2 diabetes mellitus without complications; I25.10 Atherosclerotic heart disease of native coronary artery without angina pectoris; E66.9 Obesity, unspecified; E78.5 Hyperlipidemia, unspecified; R53.81 Other malaise; Z90.710 Acquired absence of both cervix and uterus; Z79.82 Long term (current) use of aspirin
CPT/HCPCS: 36415; 36416; 76770; 80048; 80053; 81001; 82550; 83516; 85025; 86038; 86225; 86256; 87086; J0696; J3490; J7050

== ENCOUNTER 2019-07-25 14:07 | Outpatient (CLI) | payer MEDICARE, OTHER ==
--- NOTE | 2019-07-25 14:25 | RAD ---
Chest 2 views HISTORY: Dyspnea. COMPARISON: 02/25/2019. FINDINGS: Cardiac silhouette remains enlarged. Pulmonary vasculature is now engorged with mild bilate ral perihilar infiltrates. No confluent airspace consolidation, pneumothorax, or pleural fluid are apparent. IMPRESSION: Cardiomegaly with pulmonary vascular congestion/edema. Consider CHF.
== END 2019-07-25 14:08 | disposition home or self-care (01) ==
LOC: MADRAD 14:07
PROVIDERS: ATTEND Family Medicine
DX: R06.02 Shortness of breath (principal); I51.7 Cardiomegaly
CPT/HCPCS: 71046

== ENCOUNTER 2019-07-30 09:31 | Outpatient (CLI) | payer MEDICARE, OTHER ==
--- NOTE | 2019-07-30 09:59 | RAD ---
EXAM: Chest 2 views: HISTORY: Congestive heart failure COMPARISON: 07/25/2019 FINDINGS: There is an enlarged but stable cardiomediastinal silhouette. There is no evidence of consolidation, mass, or pleural effusion. The bones are unremarkable. IMPRESSION: No evidence of acute cardiopulmonary disease
[2019-07-30 10:22] LABS: Anion Gap 15 mmol/L (10-20); BUN (Urea Nitrogen) 20 mg/dL (9.8-20.1); Calc. Creatinine Clearance 0 mL/min (70-130); Calcium 9.3 mg/dL (7.8-10.44); Carbon Dioxide 25 mmol/L (23-31); Chloride 107 mmol/L (98-107); Estimated GFR-MDRD 42; Glucose 110 mg/dL (80-115); Potassium 4.1 mmol/L (3.5-5.1); Sodium 143 mmol/L (136-145)
== END 2019-07-30 09:32 | disposition home or self-care (01) ==
LOC: MADLABBHPM 09:31
PROVIDERS: ATTEND Family Medicine
DX: I50.9 Heart failure, unspecified (principal)
CPT/HCPCS: 36415; 71046; 80048

== ENCOUNTER 2019-08-02 14:07 | Observation (INO) | payer MEDICARE, OTHER ==
[2019-08-02 15:25] LABS: #Basophils 0.1 thou/uL (0.0-0.2); #Eosinphils 0.1 thou/uL (0.0-0.7); #Lymphocytes 1.7 thou/uL (1.20-3.40); #Monocytes 0.7 thou/uL (0.11-0.59); #Neutrophils 9.7 thou/uL (1.40-6.50); %Basophils 0.5 % (0.0-1.0); %Eosinophils 0.5 % (0.0-10.0); %Lymphocytes 14.1 % (21.0-51.0); %Monocytes 5.4 % (0.0-10.0); %Neutrophils 79.6 % (42.0-75.0); Mean Corpuscular Hemoglobin 29.3 pg (27.0-31.0); Mean Corpuscular Volume 97.5 fL (78.0-98.0); Platelet Count 305 thou/uL (130-400); RBC Distribution Width 14.7 % (11.5-14.5); Red Blood Cell (RBC) Count 3.76 mill/uL (4.20-5.40); White Blood Cell (WBC) Count 12.2 thou/uL (4.8-10.8)
[2019-08-02 15:37] LABS: Anion Gap 15 mmol/L (10-20); BUN (Urea Nitrogen) 22 mg/dL (9.8-20.1); Calc. Creatinine Clearance 0 mL/min (70-130); Calcium 9.5 mg/dL (7.8-10.44); Carbon Dioxide 26 mmol/L (23-31); Chloride 107 mmol/L (98-107); Estimated GFR-MDRD 46; Potassium 4.4 mmol/L (3.5-5.1); Sodium 144 mmol/L (136-145)
[2019-08-02 15:57] LABS: Glucose 47 mg/dL (80-115)
[2019-08-02] MEDS ORDERED: Dextrose 50% Abboject 50 ML SYRINGE ONE ×2 (15:58→15:59)
[2019-08-02 16:19] LABS: Bilirubin Negative (Negative); Blood, Urine Large (Negative); Clarity Cloudy (Clear); Glucose, Urine (Dipstick) Negative (Negative); Leukocyte Negative (Negative); Nitrite Negative (Negative); Protein, Urine (Dipstick) > or equal to 300 mg/dL (Neg-Trace); Urobilinogen 0.2 mg/dL (Less than 2)
[2019-08-02 16:26] LABS: Bacteria/HPF Rare-Few HPF (None Seen); RBC/HPF Greater than 50 HPF (0-3)
[2019-08-02 17:43] VITALS: BMI 37.8
[2019-08-02] MEDS ORDERED: Ondansetron ODT 4 MG TAB PO PRN (18:25)
[2019-08-02] MEDS ORDERED: Acetaminophen 325 MG TAB PO PRN (18:25)
[2019-08-02] MEDS ORDERED: Dextrose 10% in Water 1,000 ML IV SCH (18:30)
[2019-08-02] MEDS ORDERED: Acetaminophen 500 MG TAB PO PRN (19:55)
[2019-08-02] MEDS ORDERED: traMADol HCl 50 MG TAB PO PRN (19:56)
[2019-08-02] MEDS ORDERED: Polyethylene Glycol 3350 17 GM Packet PO PRN (19:56)
[2019-08-02] MEDS ORDERED: HYDROcodone/Acetaminophen 5/325 mg Tablet PO PRN (20:01)
[2019-08-02] MEDS: Dextrose 10% in Water 250 ML IV SCH (20:19)
[2019-08-02] MEDS: Betamethasone 0.1% Cream 15 GM TUBE TOP SCH (21:45)
[2019-08-02] MEDS: Carvedilol 12.5 MG TAB PO SCH (21:45)
[2019-08-02] MEDS: Famotidine 20 MG TAB PO SCH (21:46)
[2019-08-02] MEDS: Cephalexin 250 MG CAP PO SCH (21:46)
[2019-08-02] MEDS: Rosuvastatin 10 MG TAB PO SCH (21:46)
[2019-08-03] MEDS: Dextrose 10% in Water 250 ML IV SCH ×4 (01:26→17:05)
[2019-08-03 05:40] LABS: #Basophils 0.1 thou/uL (0.0-0.2); #Eosinphils 0.1 thou/uL (0.0-0.7); #Lymphocytes 1.9 thou/uL (1.20-3.40); #Monocytes 0.7 thou/uL (0.11-0.59); #Neutrophils 7.1 thou/uL (1.40-6.50); %Basophils 0.6 % (0.0-1.0); %Eosinophils 1.3 % (0.0-10.0); %Lymphocytes 19.3 % (21.0-51.0); %Monocytes 7.4 % (0.0-10.0); %Neutrophils 71.5 % (42.0-75.0); Hemoglobin 9.6 g/dL (12.0-16.0); Mean Corpuscular HGB CONC 30.5 g/dL (32.0-36.0); Mean Corpuscular Hemoglobin 29.7 pg (27.0-31.0); Mean Corpuscular Volume 97.2 fL (78.0-98.0); Platelet Count 235 thou/uL (130-400); RBC Distribution Width 14.8 % (11.5-14.5); Red Blood Cell (RBC) Count 3.22 mill/uL (4.20-5.40); White Blood Cell (WBC) Count 9.9 thou/uL (4.8-10.8)
[2019-08-03 05:49] LABS: ALT (SGPT) 17 U/L (8-55); AST (SGOT) 20 U/L (5-34); Alkaline Phosphatase 122 U/L (40-110); Anion Gap 12 mmol/L (10-20); BUN (Urea Nitrogen) 30 mg/dL (9.8-20.1); Bilirubin, Total 0.2 mg/dL (0.2-1.2); Calc. Creatinine Clearance 0 mL/min (70-130); Calcium 8.4 mg/dL (7.8-10.44); Carbon Dioxide 23 mmol/L (23-31); Chloride 109 mmol/L (98-107); Estimated GFR-MDRD 50; Glucose 83 mg/dL (80-115); Potassium 4.2 mmol/L (3.5-5.1); Sodium 140 mmol/L (136-145)
[2019-08-03] MEDS: Potassium Chloride 10 MEQ TAB PO SCH (08:04)
[2019-08-03] MEDS: Carvedilol 12.5 MG TAB PO SCH ×2 (08:04→20:33)
[2019-08-03] MEDS: Ascorbic Acid 500 mg Chewable Tablet PO SCH (08:04)
[2019-08-03] MEDS: Fluconazole 100 MG TAB PO SCH (08:04)
[2019-08-03] MEDS: Ferrous Sulfate 325 MG TAB PO SCH ×2 (08:04→17:05)
[2019-08-03] MEDS: Allopurinol 100 MG TAB PO SCH (08:05)
[2019-08-03] MEDS: Famotidine 20 MG TAB PO SCH ×2 (08:05→20:33)
[2019-08-03] MEDS: Fish Oil 1,000 MG CAP PO SCH (08:05)
[2019-08-03] MEDS: Lisinopril 5 MG TAB PO SCH (08:05)
[2019-08-03] MEDS: Aspirin 81 mg Enteric Coated Tablet PO SCH (08:05)
[2019-08-03] MEDS: Betamethasone 0.1% Cream 15 GM TUBE TOP SCH ×2 (08:05→20:34)
[2019-08-03] MEDS: Furosemide 20 MG TAB PO SCH (08:05)
[2019-08-03] MEDS: Multivitamin W/ Minerals 1 TAB PO SCH (08:05)
[2019-08-03] MEDS: LACTOBACILLUS RHAMNOSUS GG PO SCH (08:06)
[2019-08-03] MEDS ORDERED: Dextrose 5 % And 0.9 % NaCl 1,000 ML IV SCH (18:15)
--- NOTE | 2019-08-03 18:59 | HP ---
PRIMARY CARE PHYSICIAN: Ana Luna MD CHIEF COMPLAINT: Hypoglycemia. HISTORY OF PRESENT ILLNESS: Ms. Parada is a 69-year-old female with a medical history of hypertension, diabetes type 2, frequent urinary tract infection, coronary artery disease, overactive bladder, obesity, arthritis, psoriasis, and hyperlipidemia. The patient presented to the emergency room on August 02 due to hypoglycemic episodes x1 day. The patient states she was recently switched to glipizide a week ago. She was previously on Actos, but due to CHF exacerbations and fluid overload, this was switched. The patient states she took medicine for a week and noted her blood sugars started decreasing to the 50s. The patient states she tried eating sugary product and drinks and last night her sugar was able to go from 50 to 102. The patient states she has been feeling weak and a little bit nauseous since the symptoms started. She states this morning her sugar dropped back to between 30 and 60 and the decision was made to present to the emergency room. The patient denies any chest pain. She denies any falls. She denies any shortness of breath, but she states about a week ago also she had severe shortness of breath and she saw her primary care physician, Dr. Luna, who started her on Lasix. Chest x-ray initially noted to be fluid overload and she followed up. Repeat chest x-ray showed much improvement, status post the Lasix. She states the shortness of breath had resolved. She denies any palpitations. She denies any head trauma. She denies any vomiting episodes. In the emergency room, the patient was noted to have blood sugars ranging from 47 to 55. She was given one amp of D50 IV push and D10W 50 mL/h. This slowly improved the blood sugar and she improved to 61. The patient was also given peanut butter, jelly, and orange juice with sugar packets and her blood sugar improved to 72. Due to still low hypoglycemic episodes, the decision was made to admit the patient for observation with D10 and monitor the patient overnight. Upon evaluation of the patient today, this morning, she still had episodes of hypoglycemia throughout the middle of the night. She was given multiple peanut butter. She was given orange juice and her blood glucose improved to 83 this morning. The patient denies any chest pain. She denies any shortness of breath. She states she feels a little bit better, but she is concerned as she does not want to have hypoglycemic episodes in the middle of the night and not wake up. PAST MEDICAL HISTORY: Hypertension, diabetes type 2, psoriasis, CAD, hyperlipidemia, overactive bladder, frequent urinary tract infections, obesity. PAST SURGICAL HISTORY: Cardiac stent in 2017, hysterectomy, hernia repair, left femur repair. SOCIAL HISTORY: The patient lives at home with her son. She is retired. She denies illicit drug use, alcohol, or tobacco use. MEDICATIONS: 1. Allopurinol 100 daily. 2. Vitamin C 1000 daily. 3. Aspirin 81 mg daily. 4. Coreg 12.5 b.i.d. 5. Keflex 250 at bedtime. 6. Vitamin D3 1000 daily. 7. Ferrous sulfate 325 daily. 8. Fish oil 1000 daily. 9. Fluconazole 100 daily. 10. Lasix 20 mg daily. 11. Lisinopril 5 mg daily. 12. Glipizide ER 5mg daily 13. Cranberry 900 mg one daily. 14. Potassium chloride 10 mEq daily. 15. Crestor 20 mg at bedtime. ALLERGIES: NO KNOWN DRUG ALLERGIES. REVIEW OF SYSTEMS: GENERAL: The patient complains of generalized weakness and fatigue. HEENT: No vision changes, hearing changes, or upper respiratory symptoms. CARDIOVASCULAR: Denies chest pain, palpitations, orthopnea, or dizziness. GI: Denies vomiting, abdominal pain, or diarrhea. GENITOURINARY: Dysuria, hematuria. MUSCULOSKELETAL: Complains of hip pain. NEUROLOGIC: Complains of generalized weakness. Denies any numbness or seizures , loss of consciousness. PSYCHIATRY: Reports insomnia and depression. PHYSICAL EXAMINATION: VITAL SIGNS: Temperature 98.0, pulse 72, respirations 18, O2 saturation 99% on room air, blood pressure 119/53. GENERAL: The patient is alert, awake, and oriented x3, sitting up in bed, in no apparent distress. Obese. HEENT: Normocephalic, atraumatic. Oral mucous membranes are moist. PERRL. Intact extraocular muscles. NECK: Supple. No JVD. No bruit. No LAD. CARDIOVASCULAR: S1 and S2. No murmurs. ABDOMEN: Positive bowel sounds. Nontender and nondistended. Obese. No guarding. No rebound. No CVA tenderness bilaterally. EXTREMITIES: No erythema or edema. Positive pulses bilaterally. NEUROLOGIC: Cranial nerves 2 through 12 grossly intact. SKIN: Small scaly erythematous plaques all over lower extremities. LABORATORY DATA: WBC 9.9, hemoglobin 9.6, hematocrit 31.3, platelets 235. Sodium 140, potassium 4.2, chloride 109, bicarb 23, BUN 30, creatinine 1.09, glucose 83 , alkaline phosphatase 122, ALT 20, AST 17, calcium 8.4. ASSESSMENT: 1. Hypoglycemia. 2. Acute kidney injury. 3. Generalized weakness. PLAN: The patient is a 69-year-old female who is being admitted to observation at [facility] in [place] due to hypoglycemic episodes secondary to new diabetes medication. We will continue the patient on D10 in water at 50 mL/h. We will hold all hypoglycemic medications. We will continue patient on a regular diet. We will resume home medications. We will monitor bedside glucose q.[address] the patient on Pepcid for GI prophylaxis and SCDs for DVT prophylaxis. ANTICIPATED LENGTH OF STAY: 24 to 48 hours. CODE STATUS: FULL CODE. Job ID: [id number] [facility]
[2019-08-03] MEDS: Cephalexin 250 MG CAP PO SCH (20:33)
[2019-08-03] MEDS: Rosuvastatin 10 MG TAB PO SCH (20:33)
[2019-08-04] MEDS: Aspirin 81 mg Enteric Coated Tablet PO SCH (08:44)
[2019-08-04] MEDS: Fish Oil 1,000 MG CAP PO SCH (08:44)
[2019-08-04] MEDS: Ascorbic Acid 500 mg Chewable Tablet PO SCH (08:44)
[2019-08-04] MEDS: Multivitamin W/ Minerals 1 TAB PO SCH (08:44)
[2019-08-04] MEDS: Potassium Chloride 10 MEQ TAB PO SCH (08:44)
[2019-08-04] MEDS: Allopurinol 100 MG TAB PO SCH (08:44)
[2019-08-04] MEDS: Ferrous Sulfate 325 MG TAB PO SCH ×2 (08:44→17:39)
[2019-08-04] MEDS: Famotidine 20 MG TAB PO SCH (08:45)
[2019-08-04] MEDS: Fluconazole 100 MG TAB PO SCH (08:45)
[2019-08-04] MEDS: Carvedilol 12.5 MG TAB PO SCH (08:45)
[2019-08-04] MEDS: Lisinopril 5 MG TAB PO SCH (08:45)
[2019-08-04] MEDS: Furosemide 20 MG TAB PO SCH (08:45)
[2019-08-04] MEDS: Betamethasone 0.1% Cream 15 GM TUBE TOP SCH (08:48)
[2019-08-04] MEDS: LACTOBACILLUS RHAMNOSUS GG PO SCH (08:49)
[2019-08-04 17:19] VITALS: BP 168/82; TEMP 98.9
--- NOTE | 2019-08-04 21:33 | SS ---
DATE OF ADMISSION: 08/02/2019 DATE OF DISCHARGE: 08/04/2019 REASON FOR ADMISSION: Hypoglycemia. FINAL DIAGNOSES: 1. Hypoglycemic episode, likely drug induced. 2. History of well-controlled diabetes with latest A1c 5.7 as of July of 2019. 3. History of recurrent urinary tract infection, on prophylactic and oral antibiotic therapy. 4. Overactive bladder. 5. Hypertension. 6. Iron deficiency anemia, chronic. 7. Chronic kidney disease, stage II. DISPOSITION: Home. CONDITION ON DISCHARGE: Stable. MEDICATIONS: 1. Allopurinol 100 mg p.o. daily. 2. Ascorbic acid 1000 mg daily. 3. Aspirin 81 mg daily. 4. Betamethasone Valerate b.i.d. to affected areas. 5. Carvedilol 12.5 mg p.o. b.i.d. 6. Cephalexin 250 mg p.o. at bedtime. 7. Cholecalciferol 1000 mg p.o. daily. 8. Famotidine 20 mg p.o. b.i.d. 9. Ferrous sulfate 325 mg p.o. b.i.d. 10. Fish oil 1000 mg p.o. daily. 11. Fluconazole 100 mg p.o. daily to complete 7 days. 12. Furosemide 20 mg p.o. daily. 13. Lisinopril 5 mg p.o. p.o. daily. 14. Rosuvastatin 20 mg p.o. at bedtime. 15. Potassium chloride 99 mcg p.o. daily. DISPOSITION: Home. Diet: 2000 kilocalorie AHA diet. Activity: Use rolling walker at all times. Followup: 1. Follow up with Dr. Luna in 1 to 2 weeks sooner with concern. 2. Follow up with Dr. Goss on 08/11/2019 as previously scheduled. 3. Follow up with Dr. Garcia for urologic care on as previously scheduled. 4. Follow up with Dr. Nation on 08/08/2019 as previously scheduled. HISTORY OF THE PRESENT ILLNESS AND HOSPITAL COURSE: Ms. Parada is a 69-year-old female with known history of poorly-controlled diabetes associated with CKD, hypertension, CAD, overactive bladder, morbid obesity, arthritis, psoriasis, and dyslipidemia. The patient's has been well controlled over the past year. Her A1c has been less than 6 this year. Her latest A1c was 5.7 on 07/18/2019. The patient has been on long-term use of pioglitazone and metformin. Metformin was recently discontinued secondary to persistent chronic kidney disease stage 3 complicated with acute kidney injury frequently lately requiring hospitalization. The patient has been on pioglitazone alone over the past 6 months or so. In her last visit a week ago in the clinic, she reported a new onset of shortness of breath associated with leg edema. Her chest x-ray at that time showed pulmonary edema with possible CHF. At that time, patient's pioglitazone was discontinued and she was started on Lasix and lisinopril. When she followed up on 07/25/2019, she reports marked improvement of shortness of breath and leg swelling. She also lost couple pounds. Her repeat chest x-ray on 07/30/2019 showed no evidence of acute cardiopulmonary disease. At that time, her BUN was 20 and creatinine of 1.27, so her lisinopril were continued with the recommendation to have a repeat renal function with Dr. Nation on forthcoming appointment scheduled on 08/08/2019. Also at that time, she was recommended to completely stop her oral hypoglycemic. The patient then requested not to stop completely her hypoglycemic agent secondary to history of uncontrolled diabetes and she is not confident that she can control her sugar with dietary management alone. She was then prescribed with glipizide ER 5 mg p.o. daily that she started on 07/31/2019. The patient then developed an acute onset of hypoglycemia on 08/02/2019 symptomatically. She went to the ER and her sugar was reported at 46. The patient reports cold, clammy sweats and general weakness at that time. The patient was treated in the ER with Glucotrol, D50 IV push and D10W at 50 mL/hour. The blood sugar slowly improved to 61, then 62 with meals. Due to persistent hypoglycemia, the patient was admitted for further observation at [facility]. Overnight, the patient's sugar remained less than 100. Despite of continues D10 then D5 NS IV fluids. The patient was likewise placed on regular diet. During the past 24 hours, the patient's blood sugar stabilized at 130s to 165s. Most current blood sugar prior to discharge was 216. The patient reports she felt stronger and at her baseline activities and strength. She is then confident to go home at this time. Her vitals remained stable throughout her hospital stay. I had a lengthy discussion with the patient as well as with the family consisting of her 2 sisters who help take care of the patient's medications. I asked the family to bring all patient's home medications including the medications bottle and medication pill box to recheck all her medications. It was then presumed that the patient continued the Actos despite of the recommendations. Then had severe hypoglycemic episodes after couple days of additional glipizide in her medication bottle, that had caused severe hypoglycemia. After lengthy discussion of the patient's treatment options, the patient and family agreed not to continue the oral hypoglycemic at this point. She agreed to continue routine Accu-Chek at least once a day pre-breakfast. She needs to keep a diary of her blood sugar readings and submit to PCP on her next appointment. To call PCPs clinic, if blood sugar is either too low or too high, so we could come up with when to start back on oral hypoglycemic. Given the history of possible CHF and the long-term use of Actos, she is not recommended to start back on pioglitazone. The patient is not comfortable as well to start on metformin at this time secondary to history of chronic kidney disease. She was reassured that during this hospitalization, her BUN was 30 and creatinine 1.09 with estimated GFR of 50. She has a forthcoming appointment with both project builder and document processing specialist this week and next week with a repeat lab work. For the mean time, patient will continue Lasix, lisinopril, and carvedilol for her blood pressure. On 08/04/2019, the patient is deemed clinically stable to be discharged home with the above recommendations. LABORATORY DATA: Lab works during this admission 08/02/2019, white count 12.2, hemoglobin 11, hematocrit 36.7, platelets 305. CBC: On 08/21/2019, WBC 9.1, hemoglobin 9.6, hematocrit 31.3, platelets 235. Sodium 140, potassium 4.2, anion gap 12, BUN 30, creatinine 1.09, glucose 83, albumin 3.0. Urine greater than or equal to 300 protein with large blood. Urine rbc greater than 50, and urine wbcs 7-10. Rare bacteria. Urine culture was sent on 08/04/2019 prior to discharge, pending culture results. PHYSICAL EXAMINATION: VITAL SIGNS: Prior to discharge; blood pressure 168/82, temperature 98.9, pulse 74, respiration 18, O2 sats 98% on room air, weight 234 pounds and 9 ounces, height 5 feet 6 inches. GENERAL: The patient is awake, alert, and oriented x3, comfortable, not in distress. HEENT: Normocephalic, atraumatic. PERRL. Intact EOM. Anicteric sclerae. Oral mucosa is moist. NECK: Supple. No LAD. No JVD. No bruit. CHEST: Normal excursion. Clear to auscultation bilaterally. CARDIAC: RRR. Normal S1 and S2. No murmurs. ABDOMEN: Obese, soft. Normoactive bowel sounds. Nondistended, nontender. No rebound or guarding. Negative CVA tenderness bilaterally. EXTREMITIES: Trace nonpitting bipedal edema. SKIN: Wound on the left lateral lower from previous biopsy site is covered with clean dressing. NEUROLOGIC: Nonfocal. Gait unsteady, uses rolling walker for ambulation. Time spent on this discharge 35 minutes in checking and examining the patient, coordinating care, medical reconciliation, and counseling. Job ID: [id number]
== END 2019-08-04 18:11 | disposition home or self-care (01) ==
LOC: MADERS 14:07 → MADMS 16:35
PROVIDERS: ADMIT Family Medicine; ATTEND Family Medicine
DX: E16.2 Hypoglycemia, unspecified (principal); N17.9 Acute kidney failure, unspecified; I12.9 Hypertensive chronic kidney disease with stage 1 through stage 4 chronic kidney disease, or unspecified chronic kidney disease; E11.22 Type 2 diabetes mellitus with diabetic chronic kidney disease; N18.2 Chronic kidney disease, stage 2 (mild); N39.0 Urinary tract infection, site not specified; N32.81 Overactive bladder; D50.9 Iron deficiency anemia, unspecified; E66.9 Obesity, unspecified; I25.10 Atherosclerotic heart disease of native coronary artery without angina pectoris; M19.90 Unspecified osteoarthritis, unspecified site; E78.5 Hyperlipidemia, unspecified; Z68.37 Body mass index [BMI] 37.0-37.9, adult; Z79.82 Long term (current) use of aspirin; Z79.899 Other long term (current) drug therapy; Z95.5 Presence of coronary angioplasty implant and graft
CPT/HCPCS: 36415; 36416; 80048; 80053; 81003; 81015; 85025; 87086; 96361; 96374; G0378; J7042

== ENCOUNTER 2020-10-06 09:24 | Outpatient (CLI) | payer MEDICARE, OTHER ==
[2020-10-06] MEDS ORDERED: Iopamidol 370 76% 100 ML VIAL ONE (09:44)
== END 2020-10-06 09:25 | disposition home or self-care (01) ==
LOC: MADRAD 09:24
PROVIDERS: ATTEND Family Medicine
DX: R10.12 Left upper quadrant pain (principal); K80.20 Calculus of gallbladder without cholecystitis without obstruction
CPT/HCPCS: 36415; 74177; 82565; Q9967

== ENCOUNTER 2020-12-28 11:42 | Outpatient (CLI) | payer MEDICARE, OTHER ==
[2020-12-28 12:57] LABS: #Lymphocytes 1.5 thou/uL (1.20-3.40); #Monocytes 0.8 thou/uL (0.11-0.59); #Neutrophils 8.1 thou/uL (1.40-6.50); %Basophils 0.4 % (0.0-1.0); %Eosinophils 0.2 % (0.0-10.0); %Lymphocytes 14.6 % (21.0-51.0); %Monocytes 7.7 % (0.0-10.0); %Neutrophils 77.2 % (42.0-75.0); Hemoglobin 11.3 g/dL (12.0-16.0); Mean Corpuscular Hemoglobin 32.2 pg (27.0-31.0); Mean Corpuscular Volume 100.7 fL (78.0-98.0); Mean Platelet Volume 7.6 fL (7.4-10.4); Platelet Count 268 thou/uL (130-400); RBC Distribution Width 12.3 % (11.5-14.5); White Blood Cell (WBC) Count 10.5 thou/uL (4.8-10.8)
[2020-12-28 13:06] LABS: Albumin 3.5 g/dL (3.4-4.8); Anion Gap 16 mmol/L (10-20); BUN (Urea Nitrogen) 40 mg/dL (9.8-20.1); Calc. Creatinine Clearance 0 mL/min (70-130); Carbon Dioxide 20 mmol/L (23-31); Chloride 109 mmol/L (98-107); Glucose 121 mg/dL (83-110); Phosphorus 3.7 mg/dL (2.3-4.7); Potassium 4.6 mmol/L (3.5-5.1); Sodium 140 mmol/L (136-145)
== END 2020-12-28 11:43 | disposition home or self-care (01) ==
LOC: MADLAB 11:42
PROVIDERS: ATTEND Internal Medicine Nephrology
DX: I12.9 Hypertensive chronic kidney disease with stage 1 through stage 4 chronic kidney disease, or unspecified chronic kidney disease (principal); N18.30 Chronic kidney disease, stage 3 unspecified; E55.9 Vitamin D deficiency, unspecified; R60.9 Edema, unspecified; R31.29 Other microscopic hematuria; N39.0 Urinary tract infection, site not specified; N28.89 Other specified disorders of kidney and ureter
CPT/HCPCS: 36415; 74176; 80048; 82040; 83735; 83970; 84100; 85025

== ENCOUNTER 2021-12-16 16:11 | Outpatient (CLI) | payer MEDICARE, OTHER | END 2021-12-16 16:12 | disposition home or self-care (01) | LOC: MADLAB 16:11 | PROVIDERS: ATTEND Family Medicine | DX: D51.9 Vitamin B12 deficiency anemia, unspecified (principal) | CPT/HCPCS: 36415; 82607; 82746 ==

== ENCOUNTER 2022-09-16 22:13 | Emergency (ER) | payer MEDICARE, OTHER ==
[2022-09-16] MEDS ORDERED: Aspirin 325 MG TAB ONE (23:14)
[2022-09-16 23:28] LABS: #Basophils 0.1 thou/uL (0.0-0.2); #Eosinphils 0.2 thou/uL (0.0-0.7); #Monocytes 0.7 thou/uL (0.11-0.59); #Neutrophils 8.7 thou/uL (1.40-6.50); %Basophils 0.5 % (0.0-1.0); %Eosinophils 1.6 % (0.0-10.0); %Lymphocytes 9.5 % (21.0-51.0); %Monocytes 6.6 % (0.0-10.0); %Neutrophils 81.7 % (42.0-75.0); Hemoglobin 9.8 g/dL (12.0-16.0); Mean Corpuscular HGB CONC 33.1 g/dL (32.0-36.0); Mean Corpuscular Hemoglobin 31.1 pg (27.0-31.0); Platelet Count 246 10x3/uL (130-400); RBC Distribution Width 12.9 % (11.5-14.5); Red Blood Cell (RBC) Count 3.17 mill/uL (4.20-5.40); White Blood Cell (WBC) Count 10.7 10x3/uL (4.8-10.8)
[2022-09-16 23:38] LABS: Bilirubin Negative (Negative); Blood, Urine Moderate (Negative); Clarity Slightly Cloudy (Clear); Glucose, Urine (Dipstick) Negative (Negative); Ketone, Urine Negative (Negative); Leukocyte Small (Negative); Nitrite Negative (Negative); Protein, Urine (Dipstick) 100 mg/dL (Neg-Trace); Urobilinogen 0.2 mg/dL (Less than 2); pH, Urine 6.5 (5.0-9.0)
[2022-09-16 23:47] LABS: ALT (SGPT) 14 U/L (8-55); AST (SGOT) 19 U/L (5-34); Albumin 3.4 g/dL (3.4-4.8); Alkaline Phosphatase 127 U/L (40-110); Anion Gap 17 mmol/L (10-20); BUN (Urea Nitrogen) 39 mg/dL (9.8-20.1); Bilirubin, Total 0.3 mg/dL (0.2-1.2); Calc. Creatinine Clearance 0 mL/min (70-130); Calcium 8.8 mg/dL (7.8-10.44); Carbon Dioxide 20 mmol/L (23-31); Chloride 107 mmol/L (98-107); Estimated GFR 27; Globulin 3.9 g/dL (2.4-3.5); Glucose 153 mg/dL (83-110); Potassium 4.5 mmol/L (3.5-5.1); Protein, Total 7.3 g/dL (5.8-8.1); Sodium 139 mmol/L (136-145)
[2022-09-17 00:18] LABS: Bacteria/HPF Rare-Few HPF (None Seen); RBC/HPF Greater than 50 HPF (0-3); WBC/HPF Greater Than 50 HPF (0-3)
[2022-09-17] MEDS ORDERED: cefTRIAXone (ROCEPHIN) 1 GM VIAL ONE (01:53)
[2022-09-17] MEDS ORDERED: Sodium Chloride 0.9% 100 ML ONE (01:53)
[2022-09-17] MEDS ORDERED: Sodium Chloride 0.9% 1,000 ML ONE (02:23)
[2022-09-17] MEDS ORDERED: Ondansetron PF 4 MG/2 ML Vial ONE (02:26)
[2022-09-17 03:43] LABS: Troponin I 0.057 ng/mL (< 0.028)
== END 2022-09-17 03:55 | disposition short-term general hospital (02) ==
LOC: MADERS 22:13
DX: R07.89 Other chest pain (principal); N39.0 Urinary tract infection, site not specified; I25.10 Atherosclerotic heart disease of native coronary artery without angina pectoris; E11.9 Type 2 diabetes mellitus without complications; I10 Essential (primary) hypertension; Z79.899 Other long term (current) drug therapy; Z79.82 Long term (current) use of aspirin
CPT/HCPCS: 71045; 80053; 81003; 81015; 83735; 83880; 84484; 85025; 87077; 87086; 87186; 93005; 96365; 96375; J0696; J2405; J3490; J7050

== ENCOUNTER 2022-09-28 16:17 | Inpatient (IN) | payer MEDICARE, OTHER ==
[2022-09-28] MEDS ORDERED: Nystatin Cream 15 GM TUBE TOP PRN (21:43)
[2022-09-28] MEDS ORDERED: Furosemide 20 MG TAB PO PRN (21:43)
[2022-09-28] MEDS ORDERED: traMADol HCl 50 MG TAB PO PRN (21:43)
[2022-09-28] MEDS ORDERED: Clobetasol 0.05% Cream 15 gm Tube TOP SCH (22:15)
[2022-09-28] MEDS ORDERED: TRIAMCINOLONE ACETONIDE EA EAR PRN (22:20)
[2022-09-28] MEDS ORDERED: Amiodarone 200 MG TAB PO SCH (22:30)
[2022-09-28] MEDS ORDERED: Atorvastatin Calcium 40 MG TAB PO SCH (22:30)
[2022-09-28] MEDS ORDERED: Allopurinol 100 MG TAB PO SCH (22:30)
[2022-09-29] MEDS: Floranex 1 GM Packet PO SCH (08:56)
[2022-09-29] MEDS: Cholecalciferol 1,000 UNITS (25 MCG) TAB PO SCH (08:57)
[2022-09-29] MEDS: Ascorbic Acid 500 mg Chewable Tablet PO SCH ×2 (08:57→20:21)
[2022-09-29] MEDS: Aspirin 81 mg Enteric Coated Tablet PO SCH (08:57)
[2022-09-29] MEDS: Amiodarone 200 MG TAB PO SCH ×2 (08:57→20:22)
[2022-09-29] MEDS: Icosapent Ethyl 1 GM CAPSULE PO SCH ×2 (08:58→20:21)
[2022-09-29] MEDS: CRANBERRY 1500 MG PO SCH ×3 (09:18→20:23)
[2022-09-29] MEDS: D MANNOSE 1 GM PO SCH ×2 (09:19→10:36)
[2022-09-29] MEDS: Estradiol [Estrace 0.01% Vaginal Cream] 42.5 GM Tube TOP SCH ×2 (09:21→10:38)
[2022-09-29] MEDS: Atorvastatin Calcium 40 MG TAB PO SCH (20:22)
[2022-09-29] MEDS: Allopurinol 100 MG TAB PO SCH (20:22)
[2022-09-29] MEDS: Famotidine 20 MG TAB PO SCH (20:23)
[2022-09-29] MEDS: FOLIC ACID 20 MG PO SCH (20:24)
[2022-09-30] MEDS: Aspirin 81 mg Enteric Coated Tablet PO SCH (08:37)
[2022-09-30] MEDS: Cholecalciferol 1,000 UNITS (25 MCG) TAB PO SCH (08:38)
[2022-09-30] MEDS: Amiodarone 200 MG TAB PO SCH ×2 (08:38→21:02)
[2022-09-30] MEDS: Ascorbic Acid 500 mg Chewable Tablet PO SCH ×2 (08:38→21:03)
[2022-09-30] MEDS: Icosapent Ethyl 1 GM CAPSULE PO SCH ×2 (08:38→21:02)
[2022-09-30] MEDS: Floranex 1 GM Packet PO SCH (08:39)
[2022-09-30] MEDS: CRANBERRY 1500 MG PO SCH ×2 (08:40→21:04)
[2022-09-30] MEDS: D MANNOSE 1 GM PO SCH (08:41)
[2022-09-30] MEDS: Allopurinol 100 MG TAB PO SCH (21:02)
[2022-09-30] MEDS: Famotidine 20 MG TAB PO SCH (21:03)
[2022-09-30] MEDS: Atorvastatin Calcium 40 MG TAB PO SCH (21:03)
[2022-09-30] MEDS: FOLIC ACID 20 MG PO SCH (21:06)
[2022-09-30] MEDS: BETAMETHASONE VALERATE 0.1% TOP PRN (21:12)
[2022-10-01] MEDS: Acetaminophen 500 MG TAB PO PRN ×2 (01:18→20:33)
[2022-10-01] MEDS: Floranex 1 GM Packet PO SCH (09:38)
[2022-10-01] MEDS: Amiodarone 200 MG TAB PO SCH ×2 (09:39→20:29)
[2022-10-01] MEDS: Aspirin 81 mg Enteric Coated Tablet PO SCH (09:39)
[2022-10-01] MEDS: Icosapent Ethyl 1 GM CAPSULE PO SCH ×2 (09:40→20:30)
[2022-10-01] MEDS: Cholecalciferol 1,000 UNITS (25 MCG) TAB PO SCH (09:40)
[2022-10-01] MEDS: Ascorbic Acid 500 mg Chewable Tablet PO SCH ×2 (09:40→20:30)
[2022-10-01] MEDS: D MANNOSE 1 GM PO SCH (09:46)
[2022-10-01] MEDS: CRANBERRY 1500 MG PO SCH ×2 (09:47→20:30)
[2022-10-01] MEDS ORDERED: Miconazole 2% Vaginal Cream 45 GM TUBE VAG SCH (14:00)
[2022-10-01] MEDS: Famotidine 20 MG TAB PO SCH (20:29)
[2022-10-01] MEDS: Atorvastatin Calcium 40 MG TAB PO SCH (20:29)
[2022-10-01] MEDS: Allopurinol 100 MG TAB PO SCH (20:29)
[2022-10-01] MEDS: FOLIC ACID 20 MG PO SCH (20:30)
[2022-10-01] MEDS: Miconazole 2% Vaginal Cream 45 GM TUBE VAG SCH (20:31)
[2022-10-02] MEDS: Floranex 1 GM Packet PO SCH (08:32)
[2022-10-02] MEDS: Icosapent Ethyl 1 GM CAPSULE PO SCH ×2 (08:33→20:37)
[2022-10-02] MEDS: Amiodarone 200 MG TAB PO SCH ×2 (08:33→20:37)
[2022-10-02] MEDS: Aspirin 81 mg Enteric Coated Tablet PO SCH (08:33)
[2022-10-02] MEDS: Ascorbic Acid 500 mg Chewable Tablet PO SCH ×2 (08:33→20:37)
[2022-10-02] MEDS: Cholecalciferol 1,000 UNITS (25 MCG) TAB PO SCH (08:34)
[2022-10-02] MEDS: Miconazole 2% Vaginal Cream 45 GM TUBE VAG SCH ×2 (08:35→20:39)
[2022-10-02] MEDS: Estradiol [Estrace 0.01% Vaginal Cream] 42.5 GM Tube TOP SCH ×3 (08:37→20:47)
[2022-10-02] MEDS: CRANBERRY 1500 MG PO SCH (08:37)
[2022-10-02] MEDS: D MANNOSE 1 GM PO SCH (08:37)
[2022-10-02] MEDS: Atorvastatin Calcium 40 MG TAB PO SCH (20:37)
[2022-10-02] MEDS: Famotidine 20 MG TAB PO SCH (20:38)
[2022-10-02] MEDS: Allopurinol 100 MG TAB PO SCH (20:38)
[2022-10-02] MEDS: CRANBERRY 15000 MG PO SCH (20:40)
[2022-10-02] MEDS ORDERED: Estradiol [Estrace 0.01% Vaginal Cream] 42.5 GM Tube TOP SCH (21:00)
[2022-10-03] MEDS: Icosapent Ethyl 1 GM CAPSULE PO SCH ×2 (08:16→20:55)
[2022-10-03] MEDS: Aspirin 81 mg Enteric Coated Tablet PO SCH (08:17)
[2022-10-03] MEDS: Ascorbic Acid 500 mg Chewable Tablet PO SCH ×2 (08:17→20:55)
[2022-10-03] MEDS: Amiodarone 200 MG TAB PO SCH ×2 (08:17→20:55)
[2022-10-03] MEDS: Cholecalciferol 1,000 UNITS (25 MCG) TAB PO SCH (08:17)
[2022-10-03] MEDS: Folic Acid 1 MG TAB PO SCH (08:17)
[2022-10-03] MEDS: Miconazole 2% Vaginal Cream 45 GM TUBE VAG SCH ×2 (08:18→20:56)
[2022-10-03] MEDS: CRANBERRY 15000 MG PO SCH ×2 (08:19→20:56)
[2022-10-03] MEDS: D MANNOSE PO SCH (08:20)
[2022-10-03] MEDS: Allopurinol 100 MG TAB PO SCH (20:55)
[2022-10-03] MEDS: Famotidine 20 MG TAB PO SCH (20:55)
[2022-10-03] MEDS: Atorvastatin Calcium 40 MG TAB PO SCH (20:55)
[2022-10-04] MEDS: Icosapent Ethyl 1 GM CAPSULE PO SCH ×2 (08:40→20:54)
[2022-10-04] MEDS: Aspirin 81 mg Enteric Coated Tablet PO SCH (08:41)
[2022-10-04] MEDS: Amiodarone 200 MG TAB PO SCH ×2 (08:41→20:52)
[2022-10-04] MEDS: Ascorbic Acid 500 mg Chewable Tablet PO SCH ×2 (08:41→20:52)
[2022-10-04] MEDS: Folic Acid 1 MG TAB PO SCH (08:41)
[2022-10-04] MEDS: Cholecalciferol 1,000 UNITS (25 MCG) TAB PO SCH (08:41)
[2022-10-04] MEDS: CRANBERRY 15000 MG PO SCH ×2 (08:43→20:54)
[2022-10-04] MEDS: Miconazole 2% Vaginal Cream 45 GM TUBE VAG SCH ×2 (08:45→20:57)
[2022-10-04] MEDS: D MANNOSE PO SCH (08:45)
[2022-10-04] MEDS: Atorvastatin Calcium 40 MG TAB PO SCH (20:52)
[2022-10-04] MEDS: Allopurinol 100 MG TAB PO SCH (20:52)
[2022-10-04] MEDS: Famotidine 20 MG TAB PO SCH (20:53)
[2022-10-04] MEDS: Estradiol [Estrace 0.01% Vaginal Cream] 42.5 GM Tube TOP SCH (20:56)
[2022-10-05] MEDS: Ascorbic Acid 500 mg Chewable Tablet PO SCH ×2 (09:22→21:16)
[2022-10-05] MEDS: Folic Acid 1 MG TAB PO SCH (09:22)
[2022-10-05] MEDS: Cholecalciferol 1,000 UNITS (25 MCG) TAB PO SCH (09:22)
[2022-10-05] MEDS: Aspirin 81 mg Enteric Coated Tablet PO SCH (09:22)
[2022-10-05] MEDS: Amiodarone 200 MG TAB PO SCH ×2 (09:22→21:17)
[2022-10-05] MEDS: Icosapent Ethyl 1 GM CAPSULE PO SCH ×2 (09:22→21:15)
[2022-10-05] MEDS: CRANBERRY 15000 MG PO SCH ×2 (09:24→21:15)
[2022-10-05] MEDS: D MANNOSE PO SCH (09:24)
[2022-10-05] MEDS: Miconazole 2% Vaginal Cream 45 GM TUBE VAG SCH ×2 (09:25→21:21)
[2022-10-05] MEDS: BETAMETHASONE VALERATE 0.1% TOP PRN (14:30)
[2022-10-05] MEDS: Acetaminophen 500 MG TAB PO PRN (21:15)
[2022-10-05] MEDS: Famotidine 20 MG TAB PO SCH (21:16)
[2022-10-05] MEDS: Allopurinol 100 MG TAB PO SCH (21:17)
[2022-10-05] MEDS: Atorvastatin Calcium 40 MG TAB PO SCH (21:17)
[2022-10-06] MEDS: CRANBERRY 15000 MG PO SCH ×2 (08:10→21:10)
[2022-10-06] MEDS: D MANNOSE PO SCH (08:11)
[2022-10-06] MEDS: Amiodarone 200 MG TAB PO SCH ×2 (08:12→21:12)
[2022-10-06] MEDS: Aspirin 81 mg Enteric Coated Tablet PO SCH (08:12)
[2022-10-06] MEDS: Icosapent Ethyl 1 GM CAPSULE PO SCH ×2 (08:12→21:10)
[2022-10-06] MEDS: Ascorbic Acid 500 mg Chewable Tablet PO SCH ×2 (08:12→21:12)
[2022-10-06] MEDS: Folic Acid 1 MG TAB PO SCH (08:13)
[2022-10-06] MEDS: Cholecalciferol 1,000 UNITS (25 MCG) TAB PO SCH (08:13)
[2022-10-06] MEDS: Miconazole 2% Vaginal Cream 45 GM TUBE VAG SCH ×2 (08:14→21:13)
[2022-10-06] MEDS: BETAMETHASONE VALERATE 0.1% TOP PRN (08:15)
[2022-10-06] MEDS: Acetaminophen 500 MG TAB PO PRN (21:12)
[2022-10-06] MEDS: Atorvastatin Calcium 40 MG TAB PO SCH (21:12)
[2022-10-06] MEDS: Famotidine 20 MG TAB PO SCH (21:12)
[2022-10-06] MEDS: Allopurinol 100 MG TAB PO SCH (21:13)
[2022-10-06] MEDS: Estradiol [Estrace 0.01% Vaginal Cream] 42.5 GM Tube TOP SCH (21:13)
[2022-10-07] MEDS: Icosapent Ethyl 1 GM CAPSULE PO SCH ×2 (08:03→22:16)
[2022-10-07] MEDS: Ascorbic Acid 500 mg Chewable Tablet PO SCH ×2 (08:03→22:16)
[2022-10-07] MEDS: Folic Acid 1 MG TAB PO SCH (08:03)
[2022-10-07] MEDS: Aspirin 81 mg Enteric Coated Tablet PO SCH (08:03)
[2022-10-07] MEDS: Amiodarone 200 MG TAB PO SCH ×2 (08:03→22:17)
[2022-10-07] MEDS: Cholecalciferol 1,000 UNITS (25 MCG) TAB PO SCH (08:04)
[2022-10-07] MEDS: Miconazole 2% Vaginal Cream 45 GM TUBE VAG SCH ×2 (08:04→22:19)
[2022-10-07] MEDS: D MANNOSE PO SCH (08:06)
[2022-10-07] MEDS: CRANBERRY 15000 MG PO SCH ×2 (08:06→22:22)
[2022-10-07] MEDS: Allopurinol 100 MG TAB PO SCH (22:16)
[2022-10-07] MEDS: Acetaminophen 500 MG TAB PO PRN (22:17)
[2022-10-07] MEDS: Famotidine 20 MG TAB PO SCH (22:17)
[2022-10-07] MEDS: Atorvastatin Calcium 40 MG TAB PO SCH (22:17)
[2022-10-08] MEDS: Aspirin 81 mg Enteric Coated Tablet PO SCH (08:48)
[2022-10-08] MEDS: Icosapent Ethyl 1 GM CAPSULE PO SCH ×2 (08:48→21:31)
[2022-10-08] MEDS: Cholecalciferol 1,000 UNITS (25 MCG) TAB PO SCH (08:49)
[2022-10-08] MEDS: Ascorbic Acid 500 mg Chewable Tablet PO SCH ×2 (08:49→21:24)
[2022-10-08] MEDS: CRANBERRY 15000 MG PO SCH ×2 (08:49→21:24)
[2022-10-08] MEDS: Folic Acid 1 MG TAB PO SCH (08:49)
[2022-10-08] MEDS: Amiodarone 200 MG TAB PO SCH ×2 (08:49→21:31)
[2022-10-08] MEDS: D MANNOSE PO SCH (08:50)
[2022-10-08] MEDS: BETAMETHASONE VALERATE 0.1% TOP PRN (08:52)
[2022-10-08] MEDS: Miconazole 2% Vaginal Cream 45 GM TUBE VAG SCH ×2 (08:52→21:39)
[2022-10-08] MEDS: Atorvastatin Calcium 40 MG TAB PO SCH (21:31)
[2022-10-08] MEDS: Famotidine 20 MG TAB PO SCH (21:31)
[2022-10-08] MEDS: Allopurinol 100 MG TAB PO SCH (21:31)
[2022-10-08] MEDS: Acetaminophen 500 MG TAB PO PRN (21:33)
[2022-10-09] MEDS: Ascorbic Acid 500 mg Chewable Tablet PO SCH ×2 (09:55→22:07)
[2022-10-09] MEDS: Icosapent Ethyl 1 GM CAPSULE PO SCH ×2 (09:55→22:06)
[2022-10-09] MEDS: Folic Acid 1 MG TAB PO SCH (09:56)
[2022-10-09] MEDS: Cholecalciferol 1,000 UNITS (25 MCG) TAB PO SCH (09:56)
[2022-10-09] MEDS: Amiodarone 200 MG TAB PO SCH ×2 (09:56→22:06)
[2022-10-09] MEDS: Aspirin 81 mg Enteric Coated Tablet PO SCH (09:56)
[2022-10-09] MEDS: CRANBERRY 15000 MG PO SCH ×2 (09:57→22:07)
[2022-10-09] MEDS: Miconazole 2% Vaginal Cream 45 GM TUBE VAG SCH ×2 (09:57→22:07)
[2022-10-09] MEDS: D MANNOSE PO SCH (09:58)
[2022-10-09] MEDS: Famotidine 20 MG TAB PO SCH (22:06)
[2022-10-09] MEDS: Allopurinol 100 MG TAB PO SCH (22:07)
[2022-10-09] MEDS: Atorvastatin Calcium 40 MG TAB PO SCH (22:07)
[2022-10-09] MEDS: Estradiol [Estrace 0.01% Vaginal Cream] 42.5 GM Tube TOP SCH (22:09)
[2022-10-10] MEDS: Icosapent Ethyl 1 GM CAPSULE PO SCH ×2 (08:58→20:39)
[2022-10-10] MEDS: Ascorbic Acid 500 mg Chewable Tablet PO SCH ×2 (08:59→20:39)
[2022-10-10] MEDS: Folic Acid 1 MG TAB PO SCH (08:59)
[2022-10-10] MEDS: Amiodarone 200 MG TAB PO SCH ×2 (08:59→20:39)
[2022-10-10] MEDS: Cholecalciferol 1,000 UNITS (25 MCG) TAB PO SCH (08:59)
[2022-10-10] MEDS: Aspirin 81 mg Enteric Coated Tablet PO SCH (08:59)
[2022-10-10] MEDS: Miconazole 2% Vaginal Cream 45 GM TUBE VAG SCH ×2 (09:00→20:40)
[2022-10-10] MEDS: D MANNOSE PO SCH (09:01)
[2022-10-10] MEDS: CRANBERRY 15000 MG PO SCH ×2 (09:01→20:40)
[2022-10-10] MEDS: Famotidine 20 MG TAB PO SCH (20:39)
[2022-10-10] MEDS: Allopurinol 100 MG TAB PO SCH (20:39)
[2022-10-10] MEDS: Atorvastatin Calcium 40 MG TAB PO SCH (20:39)
[2022-10-11] MEDS: D MANNOSE PO SCH (08:23)
[2022-10-11] MEDS: Folic Acid 1 MG TAB PO SCH (08:26)
[2022-10-11] MEDS: Icosapent Ethyl 1 GM CAPSULE PO SCH ×2 (08:26→20:27)
[2022-10-11] MEDS: Aspirin 81 mg Enteric Coated Tablet PO SCH (08:26)
[2022-10-11] MEDS: Amiodarone 200 MG TAB PO SCH ×2 (08:26→20:26)
[2022-10-11] MEDS: Cholecalciferol 1,000 UNITS (25 MCG) TAB PO SCH (08:26)
[2022-10-11] MEDS: Ascorbic Acid 500 mg Chewable Tablet PO SCH ×2 (08:26→20:26)
[2022-10-11] MEDS: Miconazole 2% Vaginal Cream 45 GM TUBE VAG SCH ×2 (08:29→20:27)
[2022-10-11] MEDS: CRANBERRY 15000 MG PO SCH ×2 (08:29→20:27)
[2022-10-11] MEDS: BETAMETHASONE VALERATE 0.1% TOP PRN (08:31)
[2022-10-11] MEDS: Allopurinol 100 MG TAB PO SCH (20:26)
[2022-10-11] MEDS: Atorvastatin Calcium 40 MG TAB PO SCH (20:26)
[2022-10-11] MEDS: Famotidine 20 MG TAB PO SCH (20:27)
[2022-10-11] MEDS: Estradiol [Estrace 0.01% Vaginal Cream] 42.5 GM Tube TOP SCH (20:28)
[2022-10-12] MEDS: Amiodarone 200 MG TAB PO SCH ×2 (09:16→20:33)
[2022-10-12] MEDS: Ascorbic Acid 500 mg Chewable Tablet PO SCH ×2 (09:16→20:29)
[2022-10-12] MEDS: Aspirin 81 mg Enteric Coated Tablet PO SCH (09:16)
[2022-10-12] MEDS: Icosapent Ethyl 1 GM CAPSULE PO SCH ×2 (09:17→20:29)
[2022-10-12] MEDS: Folic Acid 1 MG TAB PO SCH (09:17)
[2022-10-12] MEDS: Cholecalciferol 1,000 UNITS (25 MCG) TAB PO SCH (09:17)
[2022-10-12] MEDS: Miconazole 2% Vaginal Cream 45 GM TUBE VAG SCH ×2 (09:18→20:30)
[2022-10-12] MEDS: D MANNOSE PO SCH (09:18)
[2022-10-12] MEDS: CRANBERRY 15000 MG PO SCH ×2 (09:18→20:31)
[2022-10-12] MEDS: Famotidine 20 MG TAB PO SCH (20:29)
[2022-10-12] MEDS: Allopurinol 100 MG TAB PO SCH (20:29)
[2022-10-12] MEDS: Atorvastatin Calcium 40 MG TAB PO SCH (20:29)
[2022-10-13 08:33] VITALS: BP 175/80; TEMP 97.6
[2022-10-13] MEDS: Icosapent Ethyl 1 GM CAPSULE PO SCH (08:46)
[2022-10-13] MEDS: Amiodarone 200 MG TAB PO SCH (08:47)
[2022-10-13] MEDS: Folic Acid 1 MG TAB PO SCH (08:47)
[2022-10-13] MEDS: Ascorbic Acid 500 mg Chewable Tablet PO SCH (08:47)
[2022-10-13] MEDS: Aspirin 81 mg Enteric Coated Tablet PO SCH (08:47)
[2022-10-13] MEDS: Cholecalciferol 1,000 UNITS (25 MCG) TAB PO SCH (08:48)
[2022-10-13] MEDS: Miconazole 2% Vaginal Cream 45 GM TUBE VAG SCH (08:48)
[2022-10-13] MEDS: CRANBERRY 15000 MG PO SCH (08:52)
[2022-10-13] MEDS: D MANNOSE PO SCH (08:52)
[2022-10-13 10:07] VITALS: BMI 30.5
[2022-10-23] MEDS ORDERED: Amiodarone 200 MG TAB PO SCH (09:00)
== END 2022-10-13 12:15 | disposition home or self-care (01) | DRG 948 ==
LOC: MADMS 20:16
PROVIDERS: ADMIT Family Medicine; ATTEND Family Medicine
DX: R53.1 Weakness (principal); N18.4 Chronic kidney disease, stage 4 (severe); I25.110 Atherosclerotic heart disease of native coronary artery with unstable angina pectoris; I25.10 Atherosclerotic heart disease of native coronary artery without angina pectoris; M10.9 Gout, unspecified; E78.5 Hyperlipidemia, unspecified; L40.9 Psoriasis, unspecified; E66.01 Morbid (severe) obesity due to excess calories; D64.9 Anemia, unspecified; I12.9 Hypertensive chronic kidney disease with stage 1 through stage 4 chronic kidney disease, or unspecified chronic kidney disease; E11.22 Type 2 diabetes mellitus with diabetic chronic kidney disease; I48.0 Paroxysmal atrial fibrillation; Z95.5 Presence of coronary angioplasty implant and graft; Z88.1 Allergy status to other antibiotic agents; Z88.2 Allergy status to sulfonamides; Z88.8 Allergy status to other drugs, medicaments and biological substances; Z79.82 Long term (current) use of aspirin; Z79.899 Other long term (current) drug therapy; Z90.710 Acquired absence of both cervix and uterus; Z95.1 Presence of aortocoronary bypass graft; Z68.30 Body mass index [BMI] 30.0-30.9, adult

== ENCOUNTER 2025-01-28 10:03 | Outpatient (CLI) | payer MEDICARE, OTHER ==
[2025-01-28 10:39] LABS: #Basophils 0.1 thou/uL (0.0-0.2); #Eosinophils 0.2 thou/uL (0.0-0.7); #Lymphocytes 2.1 thou/uL (1.20-3.40); #Monocytes 0.5 thou/uL (0.11-0.59); #Neutrophils 4.9 thou/uL (1.40-6.50); %Basophils 0.7 % (0.0-1.0); %Eosinophils 2.8 % (0.0-10.0); %Lymphocytes 26.5 % (21.0-51.0); %Monocytes 6.9 % (0.0-10.0); %Neutrophils 63.1 % (42.0-75.0); Hematocrit 29.6 % (36.0-47.0); Hemoglobin 9.0 g/dL (12.0-16.0); Mean Corpuscular Hemoglobin 31.1 pg (27.0-31.0); Mean Corpuscular Volume 102.1 fl (78.0-98.0); Platelet Count 248 10x3/uL (130-400); Red Blood Cell (RBC) Count 2.90 mill/uL (4.20-5.40); White Blood Cell (WBC) Count 7.8 10x3/uL (4.8-10.8)
[2025-01-28 10:50] LABS: Albumin 2.9 g/dL (3.1-4.5); Anion Gap 15 mmol/L (10-20); BUN (Urea Nitrogen) 44 mg/dL (9.8-20.1); Calc. Creatinine Clearance 0 mL/min (70-130); Calcium 8.6 mg/dL (7.8-10.44); Carbon Dioxide 25 mmol/L (23-31); Chloride 106 mmol/L (98-107); Glucose 84 mg/dL (83-110); Magnesium 2.3 mg/dL (1.6-2.6); Potassium 4.0 mmol/L (3.5-5.1); Sodium 142 mmol/L (136-145)
[2025-01-28 10:55] LABS: Glucose, Urine (Dipstick) Negative (Negative); Leukocyte Moderate (Negative); Protein, Urine (Dipstick) 100 mg/dL (Neg-Trace); Specific Gravity, Urine 1.020 (1.005-1.030)
[2025-01-28 17:33] LABS: Ferritin 127.32 ng/mL (10-291); Vitamin B12 Greater than 2000 pg/mL (211-911)
[2025-01-28 17:49] LABS: Iron 47 ug/dL (50-170); Iron Binding Capacity, Total 228 mcg/dL (265-497)
[2025-01-28 18:03] LABS: Protein, Urine Random Quant 51.0 mg/dL (1-14)
== END 2025-01-28 10:04 | disposition home or self-care (01) ==
LOC: MADLAB 10:03
PROVIDERS: ATTEND Internal Medicine Nephrology
DX: I13.10 Hypertensive heart and chronic kidney disease without heart failure, with stage 1 through stage 4 chronic kidney disease, or unspecified chronic kidney disease (principal); E11.22 Type 2 diabetes mellitus with diabetic chronic kidney disease; N18.4 Chronic kidney disease, stage 4 (severe); R80.9 Proteinuria, unspecified; R60.9 Edema, unspecified
CPT/HCPCS: 80048; 81003; 82040; 82043; 82150; 82607; 82728; 83540; 83550; 83735; 83970; 84100; 84156; 85025; 87077; 87086; 87186

== ENCOUNTER 2025-03-19 11:37 | Outpatient (CLI) | payer MEDICARE, OTHER ==
[2025-03-19 12:09] LABS: ALT (SGPT) 20 U/L (Less than 34); AST (SGOT) 29 U/L (11-34); Albumin 3.1 g/dL (3.1-4.5); Alkaline Phosphatase 168 U/L (40-110); Anion Gap 17 mmol/L (10-20); BUN (Urea Nitrogen) 39 mg/dL (9.8-20.1); Bilirubin, Total 0.4 mg/dL (0.3-1.2); Calc. Creatinine Clearance 0 mL/min (70-130); Calcium 9.0 mg/dL (7.8-10.44); Carbon Dioxide 24 mmol/L (23-31); Cardiac Risk 1.9 (Less than 4.5); Chloride 107 mmol/L (98-107); Cholesterol 107 mg/dl (< 200 Desired); Globulin 4.4 g/dL (2.4-3.5); Glucose 99 mg/dL (83-110); HDL Cholesterol 55 mg/dL (>60 Neg Risk); LDL Cholesterol, Calculated 38 mg/dL; Potassium 4.8 mmol/L (3.5-5.1); Sodium 143 mmol/L (136-145); Triglycerides 69 mg/dL (Less than 150)
== END 2025-03-19 11:38 | disposition home or self-care (01) ==
LOC: MADLAB 11:37
PROVIDERS: ATTEND Internal Medicine Endocrinology, Diabetes & Metabolism
DX: E11.65 Type 2 diabetes mellitus with hyperglycemia (principal); E03.9 Hypothyroidism, unspecified
CPT/HCPCS: 36415; 80053; 80061; 82043; 83036; 84439; 84443; 86376

== ENCOUNTER 2025-05-06 10:04 | Outpatient (CLI) | payer MEDICARE, OTHER ==
[2025-05-06 10:31] LABS: #Basophils 0.1 thou/uL (0.0-0.2); #Eosinophils 0.2 thou/uL (0.0-0.7); #Lymphocytes 2.0 thou/uL (1.20-3.40); #Monocytes 0.5 thou/uL (0.11-0.59); #Neutrophils 5.3 thou/uL (1.40-6.50); %Basophils 1.1 % (0.0-1.0); %Eosinophils 2.3 % (0.0-10.0); %Lymphocytes 24.9 % (21.0-51.0); %Monocytes 5.7 % (0.0-10.0); %Neutrophils 66.0 % (42.0-75.0); Hematocrit 32.3 % (36.0-47.0); Hemoglobin 10.0 g/dL (12.0-16.0); Mean Corpuscular Hemoglobin 31.6 pg (27.0-31.0); Mean Corpuscular Volume 102.2 fl (78.0-98.0); Platelet Count 250 10x3/uL (130-400); Red Blood Cell (RBC) Count 3.16 mill/uL (4.20-5.40); White Blood Cell (WBC) Count 8.0 10x3/uL (4.8-10.8)
[2025-05-06 10:39] LABS: Glucose, Urine (Dipstick) Negative (Negative); Leukocyte Moderate (Negative); Protein, Urine (Dipstick) 100 mg/dL (Neg-Trace); Specific Gravity, Urine 1.015 (1.005-1.030)
[2025-05-06 10:44] LABS: ALT (SGPT) 8 U/L (Less than 34); AST (SGOT) 19 U/L (11-34); Albumin 3.2 g/dL (3.1-4.5); Alkaline Phosphatase 130 U/L (40-110); Anion Gap 16 mmol/L (10-20); BUN (Urea Nitrogen) 44 mg/dL (9.8-20.1); Bilirubin, Direct 0.2 mg/dL (0.1-0.3); Bilirubin, Total 0.3 mg/dL (0.3-1.2); Calc. Creatinine Clearance 0 mL/min (70-130); Calcium 9.0 mg/dL (7.8-10.44); Carbon Dioxide 23 mmol/L (23-31); Cardiac Risk 1.8 (Less than 4.5); Chloride 108 mmol/L (98-107); Cholesterol 108 mg/dl (< 200 Desired); Glucose 101 mg/dL (83-110); HDL Cholesterol 60 mg/dL (>60 Neg Risk); LDL Cholesterol, Calculated 31 mg/dL; Magnesium 2.1 mg/dL (1.6-2.6); Potassium 3.7 mmol/L (3.5-5.1); Sodium 143 mmol/L (136-145); Triglycerides 85 mg/dL (Less than 150)
[2025-05-06 18:40] LABS: Protein, Urine Random Quant 37.0 mg/dL (1-14)
== END 2025-05-06 10:05 | disposition home or self-care (01) ==
LOC: MADLAB 10:04
PROVIDERS: ATTEND Internal Medicine Cardiovascular Disease
DX: I12.9 Hypertensive chronic kidney disease with stage 1 through stage 4 chronic kidney disease, or unspecified chronic kidney disease (principal); E11.22 Type 2 diabetes mellitus with diabetic chronic kidney disease; N18.4 Chronic kidney disease, stage 4 (severe); E78.2 Mixed hyperlipidemia; R60.9 Edema, unspecified
CPT/HCPCS: 36415; 80048; 80061; 80076; 81003; 82043; 83036; 83735; 83880; 83970; 84100; 84156; 85025; 87086